=== PATIENT | male | born 1940 | race Caucasian/White ===

== ENCOUNTER → 2016-06-21 | Outpatient (CLI) | payer MEDICARE ==
[2016-06-21 09:44] LABS: Basophils % (A) 0 %; CH 35.2; CHCM 32.1; Eosinophils % (A) 1 %; HCT 40.2 % (39.0-53.0); HDW 2.48; HGB 12.9 gm/dL (13.0-17.5); Luc # (Auto) 0.13; Luc % (Auto) 4; Lymphocytes # (A) 0.5 k/uL (1.0-4.8); Lymphocytes % (A) 17 %; MCH 35.3 pg (25.0-35.0); MCV 110.2 fL (80.0-100.0); Macrocytosis Marked; Monocytes # (A) 0.2 k/uL (0-1.0); Monocytes % (A) 7 %; Neutrophils # (A) 2.2 k/uL (1.3-7.7); Neutrophils % (A) 71 %; RBC 3.65 m/uL (4.30-5.90); WBC 3.2 k/uL (3.8-10.6); WBC (Perox) 3.13
[2016-06-21 10:15] LABS: Manual Review Performed
[2016-06-21 10:33] LABS: Hemoglobin A1C 6.6 % (4.2-6.1)
[2016-06-21 10:50] LABS: ALT 277 U/L (21-72); AST 223 U/L (17-59); Alkaline Phosphatase 70 U/L (38-126); Anion Gap 9 mmol/L; Blood Urea Nitrogen 21 mg/dL (9-20); Calcium 9.2 mg/dL (8.4-10.2); Carbon Dioxide 25 mmol/L (22-30); Chloride 108 mmol/L (98-107); Cholesterol 146 mg/dL (<200); Glucose 149 mg/dL (74-99); HDL Cholesterol 36 mg/dL (40-60); Non-African American GFR(MDRD) >60 (>60 ml/min/1.73 sqM); Potassium 4.7 mmol/L (3.5-5.1); Sodium 142 mmol/L (137-145); Total Bilirubin 1.6 mg/dL (0.2-1.3); Total Protein 10.1 g/dL (6.3-8.2); Triglycerides 106 mg/dL (<150)
[2016-06-21 11:23] LABS: Prostate Specific Antigen 4.22 ng/mL (0.00-4.00)
== END | disposition home or self-care (01) ==
LOC: LABWHC1 08:36
PROVIDERS: ATTEND Internal Medicine Geriatric Medicine
DX: E78.00 Pure hypercholesterolemia, unspecified (principal); K21.9 Gastro-esophageal reflux disease without esophagitis; N40.0 Benign prostatic hyperplasia without lower urinary tract symptoms; D50.9 Iron deficiency anemia, unspecified
CPT/HCPCS: 36415; 80053; 80061; 83036; 84153; 84439; 84443; 85025

== ENCOUNTER → 2016-12-20 | Outpatient (CLI) | payer MEDICARE ==
[2016-12-20 08:03] LABS: Anisocytosis Slight; Basophils % (A) 0 %; CH 37.3; CHCM 34.5; Eosinophils # (A) 0.1 k/uL (0-0.7); Eosinophils % (A) 2 %; HCT 41.3 % (39.0-53.0); HDW 2.87; HGB 13.6 gm/dL (13.0-17.5); Luc # (Auto) 0.11; Luc % (Auto) 4; Lymphocytes # (A) 0.6 k/uL (1.0-4.8); Lymphocytes % (A) 20 %; MCV 108.9 fL (80.0-100.0); Macrocytosis Marked; Mean Platelet Volume 8.6; Monocytes # (A) 0.2 k/uL (0-1.0); Monocytes % (A) 8 %; Neutrophils # (A) 2.1 k/uL (1.3-7.7); Neutrophils % (A) 67 %; RBC 3.79 m/uL (4.30-5.90); RDW 16.2 % (11.5-15.5); WBC 3.1 k/uL (3.8-10.6)
[2016-12-20 08:44] LABS: Manual Review Performed
[2016-12-20 12:18] LABS: ALT 201 U/L (21-72); AST 161 U/L (17-59); Alkaline Phosphatase 74 U/L (38-126); Anion Gap 7 mmol/L; Blood Urea Nitrogen 19 mg/dL (9-20); Calcium 9.3 mg/dL (8.4-10.2); Carbon Dioxide 27 mmol/L (22-30); Chloride 106 mmol/L (98-107); Cholesterol 170 mg/dL (<200); Glucose 138 mg/dL (74-99); HDL Cholesterol 42 mg/dL (40-60); Iron 133 ug/dL (49-181); Non-African American GFR(MDRD) >60 (>60 ml/min/1.73 sqM); Potassium 4.8 mmol/L (3.5-5.1); Sodium 140 mmol/L (137-145); Total Bilirubin 1.3 mg/dL (0.2-1.3); Total Protein 9.2 g/dL (6.3-8.2)
[2016-12-20 12:33] LABS: % Iron Saturation 43.3 % (20-50); Total Iron Binding Capacity 307 ug/dL (261-462)
[2016-12-20 12:46] LABS: Prostate Specific Antigen 3.46 ng/mL (0.00-4.00)
[2016-12-20 14:23] LABS: Hemoglobin A1C 7.3 % (4.2-6.1)
== END | disposition home or self-care (01) ==
LOC: LABWHC1 07:40
PROVIDERS: ATTEND Internal Medicine Geriatric Medicine
DX: K75.4 Autoimmune hepatitis (principal); D50.9 Iron deficiency anemia, unspecified; E78.00 Pure hypercholesterolemia, unspecified; N40.0 Benign prostatic hyperplasia without lower urinary tract symptoms; R79.9 Abnormal finding of blood chemistry, unspecified
CPT/HCPCS: 36415; 80053; 80061; 83036; 83540; 83550; 84153; 85025

== ENCOUNTER → 2017-04-15 | Outpatient (CLI) | payer MEDICARE ==
--- NOTE | 2017-04-15 13:57 | CT ---
EXAMINATION TYPE: CT abdomen wo con DATE OF EXAM: 04/15/2017 COMPARISON: NONE INDICATION: Patient complains of right side abdominal pain about the level of the iliac crest. DLP: 518 mGycm, Automated exposure control for dose reduction was used. CONTRAST: No intravenous contrast Study performed with Oral Contrast TECHNIQUE: Axial images were obtained from above the diaphragm to the pubic rami in the axial plane a t 5 mm thick sections. Reconstructed images are reviewed on the computer in the coronal plane. FINDINGS: Limited CT sections are obtained the lung bases. The lung bases are clear. CT ABDOMEN: Liver: Normal Spleen: Appears enlarged and bulky although the craniocaudal dimension measures 11.0 cm which is with in normal limits. Pancreas: Atrophic Adrenal glands: The adrenal glands are normal. Gallbladder: Normal Kidneys: No masses are evident. No hydronephrosis is present. No cysts are present. There is a 0.9 cm calcification at the cortical medullary junction of the upper left kidney. Punctate 0.2 cm transv erse dimension calcification is in the inferior posterior right kidney Aorta: Vascular calcification is within the aorta. Inferior vena cava: Normal. Loops of bowel appear slightly prominent. Oral contrast extends to the distal loops of bowel. There is an anterior abdominal wall hernia in the anterior right lower quadrant. Additionally, an ost davina is at that site. IMPRESSIONS: 1. Mild diffuse prominence of the small bowel loops. Changes to suggest partial obstruction are not evident. Consider jejunitis. There is an ostomy in the right lower quadrant. Some anterior abdominal wall hernia containing small bowel loops as well as the right lower quadrant near the ostomy site. 2. Large left and small right renal stones without obstruction discussed above
== END | disposition home or self-care (01) ==
LOC: RADCTMAIN 11:50
PROVIDERS: ATTEND Internal Medicine Geriatric Medicine
DX: N20.0 Calculus of kidney (principal); K46.9 Unspecified abdominal hernia without obstruction or gangrene; Z98.890 Other specified postprocedural states
CPT/HCPCS: 74150

== ENCOUNTER → 2017-06-24 | Outpatient (CLI) | payer MEDICARE ==
--- NOTE | 2017-06-24 15:20 | US ---
EXAMINATION TYPE: US kidneys/renal and bladder DATE OF EXAM: 06/24/2017 COMPARISON: Correlation CT 04/15/2017 and 04/08/2013 CLINICAL HISTORY: 77-year-old male Calculus of Kidney N20.0. Hx of bilateral renal stones. Patient s tates having increase in urinary frequency at night. Technique: Multiple sonographic images of the kidneys and bladder are obtained. FINDINGS: Right Kidney: 12.0 x 4.6 x 4.8 cm without hydronephrosis. Left Kidney: 12.3 x 5.4 x 4.7 cm without hydronephrosis. There is a prominent column of Joe. Ther e is a hypoechoic structure at posterior through transmission laterally measuring 1.4 cm. Internal ec hoes could represent debris or could be artifactual. A medial echogenic focus with posterior shadowin g measures 8 mm. Underdistention of the bladder limits its evaluation. There is some echogenic material seen along the inferior margin of the bladder in the expected region of the prostate, probable prostatic calcificat ions. Only the right ureteral jet is seen during the course of the exam. Incidental finding--spleen at the upper limits of normal in size = 13.0 cm IMPRESSION: 1. Left-sided nephrolithiasis within 8 mm calculus. 2. No hydronephrosis seen. 3. A 1.4 cm cortical cyst on the left, stable from CT of 2012. 4. Some echogenic material along the inferior aspect of the bladder could represent prostatic calcifi cations or bladder calculi.
== END ==
LOC: RADUSWWP 13:32
PROVIDERS: ATTEND Internal Medicine Geriatric Medicine
DX: N20.0 Calculus of kidney (principal); N28.1 Cyst of kidney, acquired
CPT/HCPCS: 76770

== ENCOUNTER → 2017-10-28 | Outpatient (CLI) | payer MEDICARE ==
--- NOTE | 2017-10-29 11:25 | ECHOF ---
Referral Reason:R53.83 Fatigue MEASUREMENTS -------- HEIGHT: 175.3 cm WEIGHT: 78.5 kg BP: RVIDd: 3.4 cm (< 3.3) IVSd: 1.1 cm (0.6 - 1.1) LVIDd: 4.5 cm (3.9 - 5.3) LVPWd: 1.1 cm (0.6 - 1.1) IVSs: 1.3 cm LVIDs: 2.9 cm LVPWs: 1.4 cm LAESV Index (A-L): 37.28 ml/m Ao Diam: 3.4 cm (2.0 - 3.7) AV Cusp: 2.0 cm (1.5 - 2.6) LA Diam: 3.7 cm (2.7 - 3.8) EPSS: 0.7 cm MV E José Manuel: 0.65 m/s MV DecT: 376 ms MV A José Manuel: 0.60 m/s MV E/A Ratio: 1.09 RAP: 5.00 mmHg RVSP: 47.02 mmHg MV EF SLOPE: 41.54 mm/s (70 - 150) MV EXCURSION: 2.42 cm (> 18.000) FINDINGS -------- Sinus rhythm. This was a technically good study. The left ventricular size is normal. There is borderline concentric left ventricular hypertrophy. Overall left ventricular systolic function is normal with, an EF between 55 - 60 %. The right ventricle is mildly enlarged. LA is moderately dilated 34-39 ml/m2 RA appears enlarged. Aortic valve is trileaflet and is mildly thickened. Trace amount of aortic regurgitation. There is no evidence of aortic stenosis. The mitral valve leaflets are mildly thickened. There is trace to mild mitral regurgitation. [id number]-[id number] tricuspid regurgitation present. There is mild pulmonary hypertension. The right ventricular systolic pressure, as measured by Doppler, is 47.02mmHg. The pulmonic valve was not well visualized. The aortic root size is normal. IVC Not well visulized. There is no pericardial effusion. CONCLUSIONS -------- 1. Sinus rhythm. 2. This was a technically good study. 3. The left ventricular size is normal. 4. There is borderline concentric left ventricular hypertrophy. 5. Overall left ventricular systolic function is normal with, an EF between 55 - 60 %. 6. The right ventricle is mildly enlarged. 7. LA is moderately dilated 34-39 ml/m2 8. RA appears enlarged. 9. Aortic valve is trileaflet and is mildly thickened. 10. Trace amount of aortic regurgitation. 11. The mitral valve leaflets are mildly thickened. 12. There is trace to mild mitral regurgitation. 13. Xdzo-qf-vhtgakst tricuspid regurgitation present. 14. There is mild pulmonary hypertension. 15. The right ventricular systolic pressure, as measured by Doppler, is 47.02mmHg. 16. The pulmonic valve was not well visualized. 17. The aortic root size is normal. 18. IVC Not well visulized. 19. There is no pericardial effusion. HAND PASTER: Wes Amaro RDCS
== END | disposition home or self-care (01) ==
LOC: RADECHMAIN 16:18
PROVIDERS: ATTEND Internal Medicine
DX: I08.3 Combined rheumatic disorders of mitral, aortic and tricuspid valves (principal)
CPT/HCPCS: 93306

== ENCOUNTER → 2017-12-24 | Outpatient (CLI) | payer MEDICARE ==
[2017-12-24 08:31] LABS: Anisocytosis Moderate; HCT 30.5 % (39.0-53.0); HGB 9.7 gm/dL (13.0-17.5); Hypochromasia Slight; MCH 39.1 pg (25.0-35.0); MCHC 31.8 g/dL (31.0-37.0); Macrocytosis Marked; Mean Platelet Volume 8.3; RBC 2.48 m/uL (4.30-5.90); RDW 21.6 % (11.5-15.5); WBC 3.2 k/uL (3.8-10.6)
[2017-12-24 08:32] LABS: Platelet Count 81 k/uL (150-450)
[2017-12-24 08:59] LABS: Lymphocytes # (M) 0.61 k/uL (1.0-4.8); Monocytes # (M) 0.13 k/uL (0-1.0); Neutrophils # (M) 2.46 k/uL (1.3-7.7); Neutrophils % (M) 77 %; Nucleated Red Blood Cells 0 /100 WBC (0-0); Total Cells Counted 100
[2017-12-24 09:03] LABS: Albumin 2.6 g/dL (3.5-5.0); Calcium 8.2 mg/dL (8.4-10.2); Potassium 4.9 mmol/L (3.5-5.1); Total Bilirubin 2.8 mg/dL (0.2-1.3); Total Protein 9.1 g/dL (6.3-8.2)
== END | disposition home or self-care (01) ==
LOC: LABWHC1 07:27
DX: R74.8 Abnormal levels of other serum enzymes (principal)
CPT/HCPCS: 36415; 80053; 82105; 85025

== ENCOUNTER → 2018-01-15 | Outpatient (CLI) | payer MEDICARE ==
--- NOTE | 2018-01-15 13:42 | US ---
EXAMINATION TYPE: US portal vein DATE OF EXAM: 01/15/2018 COMPARISON: NONE CLINICAL HISTORY: 77-year-old male K74.60 Unspecified cirrhosis of the liver. Lack of energy, cholecy stectomy, cirrhosis TECHNIQUE: Multiple sonographic images of the right upper quadrant are obtained. FINDINGS: EXAM MEASUREMENTS: Liver Length: 12.9 cm Gallbladder: surgically absent CBD: 1.3cm Right Kidney: 11.5 x 5.1 x 4.6cm ANATOMY: Pancreas: tail obscured by overlying bowel content Liver: Nodular, cirrhotic contour. No focal lesion seen. Color flow patency within the portal vein: yes Portal Vein Flow: Hepatopetal Gallbladder: surgically absent Evidence for sonographic Castelan's sign: no CBD: dilated Right Kidney: no evidence of hydronephrosis IMPRESSION: 1. Bile duct dilated at 1.3 cm likely due to postcholecystectomy status. This can be correlated with alkaline phosphatase and bilirubin levels. 2. Cirrhosis. No sonographic evidence for hepatoma. 3. Patent portal vein with normal hepatopedal flow.
== END | disposition home or self-care (01) ==
LOC: RADUSWWP 07:32
DX: K74.60 Unspecified cirrhosis of liver (principal); K83.8 Other specified diseases of biliary tract
CPT/HCPCS: 93976

== ENCOUNTER → 2018-02-12 | Outpatient (CLI) | payer MEDICARE ==
--- NOTE | 2018-02-12 12:23 | XR ---
EXAMINATION TYPE: XR KUB DATE OF EXAM: 02/12/2018 11:58 AM CLINICAL HISTORY: History of ileostomy, colostomy, and left lower quadrant pain for 3 days. History also includes left-sided nephrolithiasis. TECHNIQUE: Single supine KUB image of the abdomen is obtained. COMPARISON: 06/10/2013. FINDINGS: Irregular multilobulated calcified density is seen within the pelvis that is not appreciate d on the prior exam of 06/10/2013. This measures up to 3.4 x 5.4 cm. Other similar-appearing phlebolit hs are noted within the pelvis. Surgical sutures are seen throughout the abdomen and within the pelvi s. Stable approximately 1.1 cm left renal calculus is seen. Lung bases are grossly unremarkable. Eval uation of pneumoperitoneum is limited on the supine view. Moderate to severe multilevel degenerative changes of the lumbosacral spine are seen. Moderate bilate ral femoral acetabular arthropathy and can deformities are also noted. No dilated large or small maribel l. IMPRESSION: 1. There is a new irregular radiopaque density within the pelvis that could be related to urinary mino dder calculi or soft tissue calcified mass. Further evaluation with CT pelvis is recommended. 2. Nonobstructive bowel gas pattern.
== END | disposition home or self-care (01) ==
LOC: RADXRMAIN 11:27
PROVIDERS: ATTEND Urology
DX: R93.422 Abnormal radiologic findings on diagnostic imaging of left kidney (principal)
CPT/HCPCS: 74018

== ENCOUNTER → 2018-02-26 | Outpatient (CLI) | payer MEDICARE ==
--- NOTE | 2018-02-27 08:53 | CT ---
EXAMINATION TYPE: CT abdomen pelvis wo con DATE OF EXAM: 02/26/2018 COMPARISON: 04/15/2017 INDICATION: Left lower quadrant abdominal pain. DLP: 466.1 mGycm, Automated exposure control for dose reduction was used. CONTRAST: 0 mL of Isovue 300. Study performed without Oral Contrast TECHNIQUE: Axial images were obtained from above the diaphragm to the pubic rami in the axial plane a t 5 mm thick sections. Reconstructed images are reviewed on the computer in the coronal plane. FINDINGS: Limited CT sections are obtained the lung bases. The lung bases are clear. CT ABDOMEN: There is mild diffuse ascites present adjacent to the liver spleen and within the mesente ry of the abdomen. Paracolic gutter fluid is evident bilaterally. Fluid extends into the pelvis. Liver: Normal Spleen: Spleen appears somewhat prominent and is borderline in size and 12.6 cm. Pancreas: Normal Adrenal glands: The adrenal glands are normal. Gallbladder: Normal Kidneys: No masses are evident. No hydronephrosis is present. No cysts are present. There is a lar ge 1.0 cm nonobstructing upper mid mid anterior left renal stone. Aorta: Vascular calcification is within the aorta. Inferior vena cava: Normal. CT PELVIS: Mild diffuse prominence of loops of bowel are present. Some wall thickening through the antrum the st omach may be present. Ostomy is in the left lower quadrant. Findings appear stable from comparison. S ome underlying ileitis is not excluded. Appendix: Not visualized Urinary bladder: Large number of dense coarse calcifications are in the right urinary bladder. Genitourinary structures: Prostate is prominent. This has some inferior impression on the urinary mino dder. There is a large dense calcification which appears to lie posterior to the urinary bladder is o f uncertain location. Osseous structures: No suspicious lytic or sclerotic lesions. Sacroiliac joint degenerative changes a re present. Facet hypertrophy and degenerative changes are throughout the lumbar spine. IMPRESSIONS: 1. Mild diffuse ascites. 2. Slight prominence of the jejunum and ileum. Correlate for jejuno- ileitis. 3. Mild prominence of the antrum the stomach wall. Antritis could be considered. 4. Nonobstructing left renal stone. 5. Dense coarse calcification right posterior lateral urinary bladder. An additional calcification wh ich appears to lie outside the posterior urinary bladder is present. 6. Enlarged prostate. 7. Splenomegaly
== END | disposition home or self-care (01) ==
LOC: RADCTMAIN 15:56
PROVIDERS: ATTEND Urology
DX: N20.0 Calculus of kidney (principal); N40.0 Benign prostatic hyperplasia without lower urinary tract symptoms; R16.1 Splenomegaly, not elsewhere classified; N32.89 Other specified disorders of bladder; Z91.013 Allergy to seafood; Z88.5 Allergy status to narcotic agent; Z91.048 Other nonmedicinal substance allergy status
CPT/HCPCS: 74176

== ENCOUNTER 2018-03-09 11:16 | Day surgery (SDC) | payer MEDICARE ==
[2018-03-04 11:01] VITALS: BMI 25.1
[~2018-03-09 11:16] MED LIST: DEXAMETHASONE SOD PHOSPHATE 10 MG/ML 1 ML VIAL IV ONE; LACTATED RINGERS 1,000 ML IV SCH; MIDAZOLAM 2 MG/2 ML VIAL IV PRN; ONDANSETRON 4 MG/2 ML VIAL IVP ONE; ceFAZolin IN SWFI 2 GM/20 ML SYRINGE IVP ONE; fentaNYL (PF) 50 MCG/ML 2 ML AMP IV PRN
[2018-03-09 11:49] LABS: Glucose,Whole Blood 141 mg/dL (75-99)
[2018-03-09 12:05] LABS: Anisocytosis Slight; HCT 34.2 % (39.0-53.0); HGB 11.3 gm/dL (13.0-17.5); Hypochromasia Slight; MCHC 33.1 g/dL (31.0-37.0); Macrocytosis Marked; Mean Platelet Volume 7.6; RBC 2.61 m/uL (4.30-5.90); RDW 18.7 % (11.5-15.5); WBC 4.8 k/uL (3.8-10.6)
[2018-03-09] MEDS ORDERED: fentaNYL (PF) 50 MCG/ML 2 ML AMP ONE (12:07)
[2018-03-09] MEDS ORDERED: ROCURONIUM BROMIDE 10 MG/ML 10 ML VIAL IV ONE (12:07)
[2018-03-09] MEDS ORDERED: PROPOFOL 10 MG/ML 20 ML VIAL IV ONE (12:07)
[2018-03-09] MEDS ORDERED: ePHEDrine SULFATE/0.9% NACL/PF 50 MG/5 ML SYRINGE IV ONE (12:07)
[2018-03-09] MEDS ORDERED: PHENYLEPHRINE-0.9% NACL SYG 1 MG/10 ML SYRINGE ONE (12:07)
[2018-03-09] MEDS ORDERED: LIDOCAINE 1% INJ 10MG/ML (20 ML MDV) ONE (12:07)
[2018-03-09 12:08] LABS: MCH 43.5 pg (25.0-35.0); MCV 131.2 fL (80.0-100.0)
[2018-03-09 12:40] LABS: Platelet Count 64 k/uL (150-450)
[2018-03-09] MEDS ORDERED: LACTATED RINGERS 1,000 ML IV ONE (13:03)
--- NOTE | 2018-03-09 14:19 | P.OP ---
Date of Procedure: 03/09/18 Preoperative Diagnosis: Bladder stone Postoperative Diagnosis: Bladder stones, large Procedure(s) Performed: Cystoscopy with cystolithotripsy, laser Anesthesia: GARRISON Surgeon: Spencer Lopez Pathology: other (Stone) Condition: stable Disposition: PACU Indications for Procedure: The patient is a 78. He was seen in the office with gross hematuria and abdominal pain. He is found to have a mariusz stone in the bladder may be some more stones. He comes for cystoscopy lithotripsy Description of Procedure: The patient was brought to the operating suite he is given a successful general endotracheal anesthesia. He's placed lithotomy position with a sterile prep and drape. With the 17-Ugandan sheath and Foroblique lens the urethra is normal. The prostate shows an obstructing bladder neck. There are 2 very large stones in the bladder each to this 2-1/2 cm in diameter. There is a large bladder diverticula with 3 large stones in it. There is another smaller stones. The total stone burden is over 5 cm. With the 550 laser probe and 25 W of energy I slowly over the next hour and a half break down all the stones in the smaller pieces. I evacuate the stone through a larger scope and an [employer] evacuator as well as grasping forceps. Then of the procedure there no remaining stones a. An 18-Ugandan Ayala catheters placed for urine drainage. The patient awake and returned recovery in good condition. He tolerated procedure well be discharged home upon recovery with an indwelling catheter until Friday which time it'll be removed. I'll see him in follow-up after that. Blood loss is less than 50 mL.
[2018-03-09 14:55] VITALS: TEMP 97
[2018-03-09 15:40] LABS: Glucose,Whole Blood 166 mg/dL (75-99)
[2018-03-09 15:56] VITALS: RESP 18
[2018-03-09 17:07] VITALS: BP 110/60; PULSE 66
== END 2018-03-09 17:10 | disposition home or self-care (01) ==
LOC: OR 11:16
PROVIDERS: ATTEND Urology
DX: N21.0 Calculus in bladder (principal); N32.3 Diverticulum of bladder; R31.0 Gross hematuria; E11.9 Type 2 diabetes mellitus without complications; K74.60 Unspecified cirrhosis of liver; Z93.2 Ileostomy status; K51.90 Ulcerative colitis, unspecified, without complications; Z79.84 Long term (current) use of oral hypoglycemic drugs; Z79.899 Other long term (current) drug therapy; Z79.891 Long term (current) use of opiate analgesic; Z79.52 Long term (current) use of systemic steroids; Z86.718 Personal history of other venous thrombosis and embolism
CPT/HCPCS: 52318; 85027; 82365; J1100; J2405; J2001; J3010; J2370; J2704

== ENCOUNTER 2018-03-16 06:53 | Day surgery (SDC) | payer MEDICARE ==
--- NOTE | 2018-03-08 19:21 | P.GSHP ---
History of Present Illness H&P Date: 03/08/18 78 yo male with a 3 cm bladder stone who comes for cystolithotripsy - Genitourinary (Male) Genitourinary: Reports as per HPI, Reports dysuria, Reports urinary frequency, Reports urinary hesitancy - Musculoskeletal Musculoskeletal: Reports low back pain Past Medical History Past Medical History: Diabetes Mellitus, Deep Vein Thrombosis (DVT), Liver Disease Additional Past Medical History / Comment(s): Ulcerative colitis, HEPATITIS, kidney stones, varicose veins, diabetes mellitus type 2 steroid induced History of Any Multi-Drug Resistant Organisms: None Reported Past Surgical History: Cholecystectomy, Orthopedic Surgery Additional Past Surgical History / Comment(s): rt elbow I and D, ileostomy initially and 1972 and suffered from perforated small bowel at that time requiring small bowel resection, revision of ileostomy in 1998, left total knee replacement in 2011 in [place] Past Anesthesia/Blood Transfusion Reactions: No Reported Reaction Smoking Status: Never smoker - Past Family History Daughter(s) Family Medical History: Osteoarthritis (OA) Additional Family Medical History / Comment(s): Patient has one daughter with Mnire's and osteoarthritis Father Additional Family Medical History / Comment(s): Dad in his 70s from a motor vehicle accident. Mother Additional Family Medical History / Comment(s): Mother in her 60s from "natural causes "and had varicose veins. Brother(s) Additional Family Medical History / Comment(s): Patient has 2 brothers that have passed from "natural causes " Sister(s) Additional Family Medical History / Comment(s): Patient has one sister that is alive with dementia. Son(s) Family Medical History: Hyperlipidemia Additional Family Medical History / Comment(s): Patient has one son with high cholesterol. Medications and Allergies Home Medications Medication Instructions Recorded Confirmed Type Baclofen 5 mg PO BID 08/22/15 03/04/18 History Loratadine [Claritin] 10 mg PO DAILY 08/22/15 03/04/18 History Magnesium 250mg Tab 250 mg PO HS 08/22/15 03/04/18 History Tamsulosin HCl [Flomax] 0.2 mg PO BID 08/22/15 03/04/18 History azaTHIOprine [Azathioprine] 50 mg PO BID 08/22/15 03/04/18 History metFORMIN HCL 500 mg PO BID 08/22/15 03/04/18 History Ferrous Sulfate [Feosol] 325 mg PO DAILY #30 tab 09/19/15 03/04/18 Rx HYDROcodone/APAP 5-325MG [[place] 1 tab PO Q6HR PRN #30 tab 09/19/15 03/04/18 Rx 5-325] Ergocalciferol [Vitamin D2] 50,000 unit PO MO 03/04/18 03/04/18 History Furosemide [Lasix] 20 mg PO DAILY 03/04/18 03/04/18 History Melatonin 10 mg PO HS 03/04/18 03/04/18 History Multivitamins, Thera [Multivitamin 2 tab PO DAILY 03/04/18 03/04/18 History (formulary)] predniSONE 20 mg PO DAILY 03/04/18 03/04/18 History Procrit (Unknown Dose) 1 injection INJ WE 03/05/18 History Allergies Allergy/AdvReac Type Severity Reaction Status Date / Time Iodinated Contrast- Oral and Allergy Anaphylaxis Verified 03/04/18 10:22 IV Dye [Iodinated Contrast Media - IV Dye] meperidine HCl [From Demerol] Allergy Hallucinati Verified 03/04/18 10:22 ons morphine Allergy Hallucinati Verified 03/04/18 10:22 ons shellfish derived [Shellfish] Allergy Anaphylaxis Verified 03/04/18 10:22 Surgical - Exam - General well developed, well nourished, no distress - Eyes PERRL - ENT no hearing loss - Neck trachea midline - Respiratory normal expansion, normal respiratory effort - Cardiovascular Rhythm: regular - Abdomen Abdomen: soft, non tender - Genitourinary normal penis with no external lesions, testicles present - Integumentary no rash, no growths - Neurologic normal coordination, normal sensation - Musculoskeletal normal gait, normal posture - Psychiatric oriented to time, oriented to person, oriented to place, speech is normal Assessment and Plan Assessment: Impression: bladder stone large[3cm] Plan: cystolithotripsy
[2018-03-10 13:35] VITALS: BMI 24.3
[~2018-03-16 06:53] MED LIST changes: +HYDROmorphone 0.5 MG/0.5 ML SYRINGE IVP PRN; +LIDOCAINE 1% 20 ML VIAL (10MG/ML) FOR IV START INTRADERMA PRN; -MIDAZOLAM 2 MG/2 ML VIAL IV PRN; +SCOPOLAMINE 1.5MG/72HR PATCH TRANSDERM ONE; -ceFAZolin IN SWFI 2 GM/20 ML SYRINGE IVP ONE; -fentaNYL (PF) 50 MCG/ML 2 ML AMP IV PRN
[2018-03-16 07:20] VITALS: TEMP 98
[2018-03-16 07:22] LABS: Glucose,Whole Blood 153 mg/dL (75-99)
[2018-03-16] MEDS ORDERED: LIDOCAINE 1% INJ 10MG/ML (20 ML MDV) ONE (08:07)
[2018-03-16] MEDS ORDERED: PROPOFOL 10 MG/ML 20 ML VIAL IV ONE (08:07)
[2018-03-16 08:49] VITALS: RESP 18
[2018-03-16 08:57] VITALS: BP 101/60; PULSE 73
--- NOTE | 2018-03-16 10:38 | P.PCN ---
Date of Procedure: 03/16/18 Procedure(s) Performed: Procedure: Esophagogastroduodenoscopy Preoperative diagnosis: History of liver cirrhosis and portal hypertension to assess for esophageal or gastric varices. Postoperative diagnosis: 1. Sliding hiatal hernia with no obvious esophagitis or complicated reflux disease. 2. No esophageal or gastric varices. 3. Portal gastropathy with no spontaneous bleeding. 4. No ulcers or other pathology. Preparation and sedation: Was provided by anesthesia. Brief clinical history: The patient is an 78-year-old male with history of ulcerative colitis and autoimmune hepatitis. He had proctocolectomy/ileostomy 1972 and was treated with Imuran for close to 20 years for his autoimmune hepatitis. The patient was noted to have symptomatic anemia and pancytopenia in September of this year and lost 20 pounds. Liver enzymes were also increased and an ultrasound performed in October suggested cirrhosis. He had CT of the abdomen in March 2017 that showed splenomegaly and kidney stones. The patient is being followed for compensated cirrhosis of the liver and was also evaluated at [facility] transplant unit for co-management. He was recommended an upper endoscopy to rule out esophageal varices. Procedure: With the patient on his left lateral decubitus position and after informed consent and adequate sedation, I passed the Olympus-GIF 160 video upper endoscope through the cricopharyngeus down the esophagus. GE junction was around 39 cm from the incisors and there was a 1-2 cm sliding hiatal hernia but no obvious esophagitis or complicated reflux disease. There were no esophageal varices noted. The endoscope was then passed into the stomach which was insufflated with air and inspected in detail including the retroflex view in the cardia. There was diffuse mottling and erythema and other features suggestive of portal gastropathy but there were no ulcers, erosions or bleeding. No gastric varices. Pyloric channel did not show any ulcers. Duodenal bulb, post bulbar area and descending duodenum appeared within normal limits. No biopsies were indicated then the endoscope was withdrawn. The patient tolerated the procedure well. Plan: The patient was reassured. Further workup planned include MRI of the liver next month. He will continue to follow up with you and I will keep you updated on his progress.
== END 2018-03-16 09:16 | disposition home or self-care (01) ==
LOC: ORWHC2ENDO 06:53
DX: K44.9 Diaphragmatic hernia without obstruction or gangrene (principal); K74.60 Unspecified cirrhosis of liver; K75.4 Autoimmune hepatitis; K76.6 Portal hypertension; K31.89 Other diseases of stomach and duodenum; N40.0 Benign prostatic hyperplasia without lower urinary tract symptoms; D61.818 Other pancytopenia; D64.9 Anemia, unspecified; E11.9 Type 2 diabetes mellitus without complications; Z79.52 Long term (current) use of systemic steroids; Z79.899 Other long term (current) drug therapy; Z88.5 Allergy status to narcotic agent; Z91.041 Radiographic dye allergy status; Z91.013 Allergy to seafood; Z87.442 Personal history of urinary calculi; Z79.891 Long term (current) use of opiate analgesic; Z79.84 Long term (current) use of oral hypoglycemic drugs
CPT/HCPCS: 43235; J2001; J2704

== ENCOUNTER 2018-03-21 11:51 | Inpatient (IN) | payer MEDICARE ==
[2018-03-21] MEDS ORDERED: SODIUM CHLORIDE 0.9% 1,000 ML IV STA ×2 (12:09→15:21)
--- NOTE | 2018-03-21 12:15 | ED ---
General Adult HPI - General Chief complaint: Extremity Injury, Lower Stated complaint: LEFT KNEE PAIN Source: EMS Mode of arrival: EMS Limitations: physical limitation - History of Present Illness Initial comments: Dictation was produced using [employer] dictation software. please excuse any grammatical, word or spelling errors. Chief Complaint: 78-year-old male with past medical history of autoimmune hepatitis, DVT, diabetes, liver disease presents with left-sided knee pain and worsening fluid retention in the bilateral lower extremities. History of Present Illness: Patient is a 78-year-old male with multiple comorbidities presents with chief complaint of left knee pain and bilateral lower extremity edema. Patient states that edema have been present since Thanksgiving time. States that today however it's much worse. Today patient presents with main complaint of left knee pain. His left knee pain since yesterday. Patient is unable to walk secondary to pain. He is accompanied by family. EMS was called because patient had extreme difficulty ambulating. EMS reports that patient had stable vital signs on arrival. He was given 100 mg of fentanyl for the pain. In 2011 patient a total knee replacement of the left knee. Denies any constitutional symptoms. One week ago patient had a endoscopy performed by acquisitions editor. Patient also had urinary catheter removed recently. The ROS documented in this emergency department record has been reviewed and confirmed by me. Those systems with pertinent positive or negative responses have been documented in the HPI. All other systems are other negative and/or noncontributory. - Related Data Home Medications Medication Instructions Recorded Confirmed Baclofen 5 mg PO BID 08/22/15 03/16/18 Loratadine [Claritin] 10 mg PO DAILY 08/22/15 03/16/18 Magnesium 250mg Tab 250 mg PO HS 08/22/15 03/16/18 Tamsulosin HCl [Flomax] 0.2 mg PO BID 08/22/15 03/16/18 azaTHIOprine [Azathioprine] 50 mg PO BID 08/22/15 03/16/18 metFORMIN HCL 500 mg PO BID 08/22/15 03/16/18 Ergocalciferol [Vitamin D2] 50,000 unit PO MO 03/04/18 03/16/18 Furosemide [Lasix] 20 mg PO DAILY 03/04/18 03/16/18 Melatonin 10 mg PO HS 03/04/18 03/16/18 Multivitamins, Thera [Multivitamin 2 tab PO DAILY 03/04/18 03/16/18 (formulary)] predniSONE 20 mg PO DAILY 03/04/18 03/16/18 Procrit (Unknown Dose) 1 injection INJ WE 03/05/18 03/16/18 Previous Rx's Medication Instructions Recorded Ferrous Sulfate [Feosol] 325 mg PO DAILY #30 tab 09/19/15 HYDROcodone/APAP 5-325MG [[place] 1 tab PO Q6HR PRN #30 tab 09/19/15 5-325] Allergies Allergy/AdvReac Type Severity Reaction Status Date / Time Iodinated Contrast- Oral and Allergy Anaphylaxis Verified 03/10/18 13:24 IV Dye [Iodinated Contrast Media - IV Dye] meperidine HCl [From Demerol] Allergy Hallucinati Verified 03/10/18 13:24 ons morphine Allergy Hallucinati Verified 03/10/18 13:24 ons shellfish derived [Shellfish] Allergy Anaphylaxis Verified 03/10/18 13:24 Review of Systems ROS Statement: Those systems with pertinent positive or pertinent negative responses have been documented in the HPI. ROS Other: All systems not noted in ROS Statement are negative. Past Medical History Past Medical History: Diabetes Mellitus, Deep Vein Thrombosis (DVT), Liver Disease Additional Past Medical History / Comment(s): Ulcerative colitis, HEPATITIS, kidney stones, varicose veins, diabetes mellitus type 2 steroid induced History of Any Multi-Drug Resistant Organisms: None Reported Past Surgical History: Cholecystectomy, Orthopedic Surgery Additional Past Surgical History / Comment(s): rt elbow I and D, ileostomy initially and 1972 and suffered from perforated small bowel at that time requiring small bowel resection, revision of ileostomy in 1998, left total knee replacement in 2011 in [place] 03/16/28 endoscopy. removal of kidney stones Past Anesthesia/Blood Transfusion Reactions: No Reported Reaction Past Psychological History: No Psychological Hx Reported Smoking Status: Never smoker Past Alcohol Use History: None Reported Past Drug Use History: None Reported - Past Family History Daughter(s) Family Medical History: Osteoarthritis (OA) Additional Family Medical History / Comment(s): Patient has one daughter with Mnire's and osteoarthritis Father Additional Family Medical History / Comment(s): Dad in his 70s from a motor vehicle accident. Mother Additional Family Medical History / Comment(s): Mother in her 60s from "natural causes "and had varicose veins. Brother(s) Additional Family Medical History / Comment(s): Patient has 2 brothers that have passed from "natural causes " Sister(s) Additional Family Medical History / Comment(s): Patient has one sister that is alive with dementia. Son(s) Family Medical History: Hyperlipidemia Additional Family Medical History / Comment(s): Patient has one son with high cholesterol. General Exam - General Exam Comments Initial Comments: PHYSICAL EXAM: General Impression: Alert and oriented x3, acute distress secondary to pain HEENT: Normocephalic atraumatic, extra-ocular movements intact, pupils equal and reactive to light bilaterally, mucous membranes moist. Cardiovascular: Heart regular rate and rhythm, S1&S2 audible, no murmurs, rubs or gallops Chest: Lungs clear to auscultation bilaterally, no rhonchi, no wheeze, no rales Abdomen: Bowel sounds present, abdomen soft, non-tender, non-distended, no organomegaly, colostomy bag present Musculoskeletal: Pulses present and equal in all extremities, 4+ pitting edema to the bilateral lower extremities. Swelling is symmetrical to her bilateral lower extremities. Motor: Power 5/5 bilaterally, no focal deficits noted Neurological: CN II-XII grossly intact, no focal motor or sensory deficits noted Skin: Intact with no visualized rashes Psych: Normal affect and mood Limitations: physical limitation Course Vital Signs 03/21/18 03/21/18 03/21/18 11:53 12:00 13:00 Temperature 99.1 F Pulse Rate 95 Respiratory 20 Rate Blood Pressure 123/62 123/62 109/59 O2 Sat by Pulse 99 100 95 Oximetry 03/21/18 03/21/18 03/21/18 13:30 14:00 14:30 Temperature Pulse Rate 82 85 84 Respiratory 12 13 15 Rate Blood Pressure 93/50 91/51 91/49 O2 Sat by Pulse 100 100 100 Oximetry 03/21/18 03/21/18 15:10 16:03 Temperature 97.9 F Pulse Rate Respiratory 20 Rate Blood Pressure O2 Sat by Pulse Oximetry Medical Decision Making - Medical Decision Making ED course: 78-year-old male presents chief complaint of left knee pain and worsening lower extremity edema. She does have history of deep venous thrombosis. Pitting edema is bilateral and symmetrical. This point the venous thrombosis is low on the differential. Vital signs upon arrival are within acceptable limits. Patient appears in acute distress. Patient presents with left knee pain. There is slight warmth to the knee. However no saline changes to the knee. Patient denies any constitutional symptoms. He is afebrile. Patient does have a history of lithotripsy recently performed last month. He recently had urinary catheter removed. Return evaluation obtained. Patient's CBC is at baseline. However there is significant abnormalities with elevated MCV. Platelet count 61. Coag panel shows INR of 2.0. Laboratory evaluation obtained. Sodium 128, potassium 5.5 with, of slight hemolysis. Patient does have mild non-gap acidosis. Be a creatinine slightly elevated. Glucose 213, magnesium 1.4, total bilirubin of 4.3. Chest x-ray shows no acute processes. The x-ray shows no acute processes. There is concern of septic arthritis given that patient had exquisite knee pain and constitutional symptoms. Discussed patient case with Dr. Castelan who does not believe that patient's symptoms are secondary to septic arthritis given that he does not have a febrile temperature or elevated white count. Discussed patient case with patient's primary care doctor Dr. Donaldson was also incidentally lithography contact worker for the group. He requests consultation to orthopedic surgery, gastroenterology and infectious disease. EKG interpretation: Ventricular rate 85, normal sinus rhythm,. Interval 156, QRS 76, QTC 4:30. No MO prolongation, no QTC prolongation, no ST or T-wave changes noted. Overall, this EKG is unremarkable - Lab Data Result diagrams: 03/21/18 12:40 03/21/18 12:40 Lab Results 03/21/18 03/21/18 03/21/18 Range/Units 12:40 12:40 12:40 WBC 5.9 (3.8-10.6) k/uL RBC 2.61 L (4.30-5.90) m/uL Hgb 11.1 L (13.0-17.5) gm/dL Hct 33.3 L (39.0-53.0) % MCV 127.3 H D (80.0-100.0) fL MCH 42.5 H (25.0-35.0) pg MCHC 33.4 (31.0-37.0) g/dL RDW 19.3 H (11.5-15.5) % Plt Count 61 L (150-450) k/uL Neutrophils % 93 % Lymphocytes % 3 % Monocytes % 3 % Eosinophils % 0 % Basophils % 0 % Neutrophils # 5.4 (1.3-7.7) k/uL Lymphocytes # 0.2 L (1.0-4.8) k/uL Monocytes # 0.2 (0-1.0) k/uL Eosinophils # 0.0 (0-0.7) k/uL Basophils # 0.0 (0-0.2) k/uL Polychromasia Present Poikilocytosis (manual Present Anisocytosis Slight Macrocytosis Marked PT (9.0-12.0) sec INR (<1.2) APTT (22.0-30.0) sec Sodium 128 L (137-145) mmol/L Potassium 5.5 H (3.5-5.1) mmol/L Chloride 104 (98-107) mmol/L Carbon Dioxide 19 L (22-30) mmol/L Anion Gap 5 mmol/L BUN 60 H (9-20) mg/dL Creatinine 1.53 H (0.66-1.25) mg/dL Est GFR (CKD-EPI)AfAm 49 (>60 ml/min/1.73 sqM) Est GFR (CKD-EPI)NonAf 42 (>60 ml/min/1.73 sqM) Glucose 213 H (74-99) mg/dL Calcium 8.7 (8.4-10.2) mg/dL Magnesium 1.4 L (1.6-2.3) mg/dL Total Bilirubin 4.3 H (0.2-1.3) mg/dL AST 69 H (17-59) U/L ALT 76 H (21-72) U/L Alkaline Phosphatase 121 (38-126) U/L Total Creatine Kinase 52 L (55-170) U/L CK-MB (CK-2) 2.7 H (0.0-2.4) ng/mL CK-MB (CK-2) Rel Index 5.2 Troponin I <0.012 (0.000-0.034) ng/mL NT-Pro-B Natriuret Pep pg/mL Total Protein 7.4 (6.3-8.2) g/dL Albumin 2.3 L (3.5-5.0) g/dL 03/21/18 03/21/18 Range/Units 12:40 12:40 WBC (3.8-10.6) k/uL RBC (4.30-5.90) m/uL Hgb (13.0-17.5) gm/dL Hct (39.0-53.0) % MCV (80.0-100.0) fL MCH (25.0-35.0) pg MCHC (31.0-37.0) g/dL RDW (11.5-15.5) % Plt Count (150-450) k/uL Neutrophils % % Lymphocytes % % Monocytes % % Eosinophils % % Basophils % % Neutrophils # (1.3-7.7) k/uL Lymphocytes # (1.0-4.8) k/uL Monocytes # (0-1.0) k/uL Eosinophils # (0-0.7) k/uL Basophils # (0-0.2) k/uL Polychromasia Poikilocytosis (manual Anisocytosis Macrocytosis PT 17.9 H (9.0-12.0) sec INR 2.0 H (<1.2) APTT 29.3 (22.0-30.0) sec Sodium (137-145) mmol/L Potassium (3.5-5.1) mmol/L Chloride (98-107) mmol/L Carbon Dioxide (22-30) mmol/L Anion Gap mmol/L BUN (9-20) mg/dL Creatinine (0.66-1.25) mg/dL Est GFR (CKD-EPI)AfAm (>60 ml/min/1.73 sqM) Est GFR (CKD-EPI)NonAf (>60 ml/min/1.73 sqM) Glucose (74-99) mg/dL Calcium (8.4-10.2) mg/dL Magnesium (1.6-2.3) mg/dL Total Bilirubin (0.2-1.3) mg/dL AST (17-59) U/L ALT (21-72) U/L Alkaline Phosphatase (38-126) U/L Total Creatine Kinase (55-170) U/L CK-MB (CK-2) (0.0-2.4) ng/mL CK-MB (CK-2) Rel Index Troponin I (0.000-0.034) ng/mL NT-Pro-B Natriuret Pep 1630 pg/mL Total Protein (6.3-8.2) g/dL Albumin (3.5-5.0) g/dL Disposition Clinical Impression: Knee pain, Hyponatremia Disposition: ADMITTED IP TO THIS HOSP Condition: Fair Referrals: Sixto Donaldson MD [Primary Care Provider] - 1-2 days Decision Time: 16:54
[2018-03-21] MEDS ORDERED: fentaNYL (PF) 50 MCG/ML 2 ML AMP IVP STA (12:47)
[2018-03-21] MEDS ORDERED: HYDROcodone/APAP 5-325MG 1 EACH TAB PO STA (12:48)
--- NOTE | 2018-03-21 12:50 | XR ---
EXAMINATION TYPE: XR chest 1V portable DATE OF EXAM: 03/21/2018 COMPARISON: 09/16/2015 HISTORY: Shortness of breath TECHNIQUE: Single frontal view of the chest is obtained. FINDINGS: There is chronic left hemidiaphragm elevation that is mild. Skin folds overlie the right l brigida. No focal consolidation, pleural effusion or pneumothorax. Cardia mediastinal silhouette is mildl y enlarged. Mild degenerative changes of the acromio clavicular joints and spine are seen. IMPRESSION: No acute process.
[2018-03-21 13:16] LABS: Albumin 2.3 g/dL (3.5-5.0); Calcium 8.7 mg/dL (8.4-10.2); Total Bilirubin 4.3 mg/dL (0.2-1.3); Total Protein 7.4 g/dL (6.3-8.2)
--- NOTE | 2018-03-21 13:17 | XR ---
EXAMINATION TYPE: XR knee complete LT DATE OF EXAM: 03/21/2018 CLINICAL HISTORY: Left knee pain TECHNIQUE: Three views of the left knee are obtained. COMPARISON: None. FINDINGS: There is no acute fracture/dislocation evident in left knee arthroplasty or sioux bone no periprosthetic lucency is seen. Diffuse subcutaneous soft tissue swelling is noted as well as small vessel atherosclerosis. IMPRESSION: Diffuse subcutaneous soft tissue swelling with no acute fracture or dislocation in the le ft knee arthroplasty or sioux bone.
[2018-03-21 13:18] LABS: Magnesium 1.4 mg/dL (1.6-2.3); Potassium 5.5 mmol/L (3.5-5.1)
[2018-03-21 13:19] LABS: Creatine Kinase 52 U/L (55-170)
[2018-03-21 13:22] LABS: Partial Thromboplastin Time 29.3 sec (22.0-30.0); Prothrombin Time 17.9 sec (9.0-12.0)
[2018-03-21 13:26] LABS: Anisocytosis Slight; Basophils % (A) 0 %; Eosinophils % (A) 0 %; HCT 33.3 % (39.0-53.0); HGB 11.1 gm/dL (13.0-17.5); Lymphocytes # (A) 0.2 k/uL (1.0-4.8); Lymphocytes % (A) 3 %; MCHC 33.4 g/dL (31.0-37.0); Macrocytosis Marked; Mean Platelet Volume 8.8; Monocytes # (A) 0.2 k/uL (0-1.0); Monocytes % (A) 3 %; Neutrophils # (A) 5.4 k/uL (1.3-7.7); Neutrophils % (A) 93 %; RBC 2.61 m/uL (4.30-5.90); RDW 19.3 % (11.5-15.5); WBC 5.9 k/uL (3.8-10.6)
[2018-03-21 13:27] LABS: MCH 42.5 pg (25.0-35.0); MCV 127.3 fL (80.0-100.0)
[2018-03-21 13:28] LABS: Platelet Count 61 k/uL (150-450)
[2018-03-21 13:32] LABS: Creatine Kinase MB 2.7 ng/mL (0.0-2.4); Troponin I <0.012 ng/mL (0.000-0.034)
[2018-03-21 13:56] LABS: Poikilocytosis (M) Present; Polychromasia Present
[2018-03-21] MEDS ORDERED: VANCOMYCIN 1,000 MG in SODIUM CHLORIDE 0.9% 250 ML IVPB STA (15:21)
[2018-03-21] MEDS ORDERED: NALOXONE 0.4 MG/ML 1 ML VIAL IV STA (15:22)
[2018-03-21] MEDS ORDERED: VANCOMYCIN IV PER PHARMACY 1 EACH MISC MISCELLANE PRN (15:32)
[2018-03-21] MEDS ORDERED: VANCOMYCIN 1,750 MG in SODIUM CHLORIDE 0.9% 500 ML 500 ML IVPB ONE (15:45)
[2018-03-21] MEDS ORDERED: NALOXONE 0.4 MG/ML 1 ML VIAL IV PRN (16:51)
[2018-03-21 17:53] LABS: Amorphous Sediment,Urine Rare /hpf; Appearance,Urine Clear (Clear); Bilirubin,Urine Negative (Negative); Blood,Urine Moderate (Negative); Color,Urine Yellow; Glucose,Urine (UA) Negative (Negative); Hyaline Casts,Urine 24 /lpf (0-2); Ketones,Urine Negative (Negative); Leukocyte Esterase,Urine Small (Negative); Mucus,Urine Rare /hpf; Nitrite,Urine Negative (Negative); PH, Urine 5.5 (5.0-8.0); Protein,Urine Trace (Negative); RBC,Urine 30 /hpf (0-5); Specific Gravity,Urine 1.014 (1.001-1.035); Urobilinogen,Urine <2.0 mg/dL (<2.0); WBC,Urine 19 /hpf (0-5)
[2018-03-21] MEDS: HYDROcodone/APAP 5-325MG 1 EACH TAB PO PRN (18:20)
[2018-03-21 19:47] LABS: Glucose,Whole Blood 231 mg/dL (75-99)
[2018-03-21 21:07] VITALS: BMI 26.6
[2018-03-22] MEDS: BACLOFEN 10 MG TAB PO SCH ×3 (00:13→21:42)
[2018-03-22] MEDS: MAGNESIUM OXIDE 400 MG TAB PO SCH ×2 (00:13→21:42)
[2018-03-22] MEDS: FAMOTIDINE 20 MG TAB PO SCH ×3 (00:14→21:42)
[2018-03-22] MEDS: azaTHIOprine 50 MG TAB PO SCH ×3 (00:14→21:42)
[2018-03-22] MEDS: TAMSULOSIN 0.4 MG CAP.ER.24H PO SCH ×3 (00:14→21:42)
[2018-03-22] MEDS: INSULIN ASPART 100 UNIT/ML 1 ML 10 ML VIAL SQ SCH ×6 (00:15→21:42)
[2018-03-22] MEDS: FUROSEMIDE 40 MG TAB PO SCH ×2 (00:18→10:30)
[2018-03-22 00:47] LABS: Glucose,Whole Blood 200 mg/dL (75-99)
[2018-03-22] MEDS: HYDROcodone/APAP 5-325MG 1 EACH TAB PO PRN ×3 (03:09→12:47)
[2018-03-22 08:33] LABS: Glucose,Whole Blood 315 mg/dL (75-99)
[2018-03-22] MEDS: LORATADINE 10 MG TAB PO SCH (08:54)
[2018-03-22] MEDS: FERROUS SULFATE 325 MG TAB PO SCH (08:54)
[2018-03-22] MEDS ORDERED: SPIRONOLACTONE 25 MG TAB PO SCH (09:00)
[2018-03-22] MEDS: predniSONE 20 MG TAB PO SCH (09:01)
[2018-03-22] MEDS: VANCOMYCIN 1,500 MG in SODIUM CHLORIDE 0.9% 250 ML IVPB SCH (09:12)
[2018-03-22] MEDS ORDERED: GLIPIZIDE PO SCH (09:15)
[2018-03-22] MEDS ORDERED: METFORMIN HCL PO SCH (09:15)
[2018-03-22] MEDS: SPIRONOLACTONE 25 MG TAB PO SCH (09:26)
[2018-03-22] MEDS: FUROSEMIDE 20 MG TAB PO SCH ×2 (09:26→15:28)
[2018-03-22] MEDS: INSULIN DETEMIR 100 UNIT/ML 10 ML VIAL SQ SCH (10:06)
--- NOTE | 2018-03-22 10:56 | P.HPIM ---
History of Present Illness H&P Date: 03/22/18 This is a 78-year-old male patient of Dr. Donaldson with past medical history for diabetes mellitus type 2 steroid induced, DVT many years ago on 2 episodes, autoimmune hepatitis on Imuran, ulcerative colitis status post ileostomy originally in 1972 and revision in 1998 currently on azathioprine, kidney stones, varicose veins. Patient recently seen by Dr. Lopez for over a kidney stone and due to edema was sent into the office and has been seen several times by MINA Adams, with medication changes made by increasing Lasix and adding Zaroxolyn and Aldactone. He has ongoing problems with left- sided knee pain and fluid retention. He states he was unable to move his left knee and hip and that was recently came in to the hospital for evaluation. He denies having any fever, no nausea or vomiting. He has had decreased appetite. He has an ileostomy that has liquid output which is normal for him. He denies having any falls. Patient came into [facility] emergency center for evaluation. Chest x-ray showed no acute process. Knee x- ray showed diffuse subcutaneous soft tissue swelling with no acute fracture dislocation left knee arthroplasty or [place] bone. His white count was normal at 5.9, hemoglobin 11.1, platelet count 61, INR 2.0. Sodium 128, potassium 5.5 , CO2 19, BUN 16 creatinine 1.53 blood sugars have been elevated at 200s to 315. Magnesium was 1.4, total bilirubin 4.3, AST 69, ALT 76, alkaline phosphatase 121. Troponin was negative. C-reactive protein 47.3. Albumin 2.3 , proBNP 1630. Urinalysis was clear with moderate blood, small leukoesterase. There was concern for septic arthroplasty left knee and electrolyte abnormalities and acute kidney injury and patient was admitted to the [facility] floor consults were requested with Dr. Pierce and Dr. Castelan. Subsequently, patient is been seen by Dr. Castelan and aspiration was done with concern for infection and plan is for I&D tomorrow in the OR. Consult with GI for autoimmune hepatitis. Review of Systems All systems: negative Constitutional: Reports fatigue, Reports poor appetite, Reports weakness, Denies chills, Denies fever Eyes: denies blurred vision, denies pain Ears, nose, mouth and throat: Denies dysphagia, Denies headache, Denies sore throat, Denies vertigo Cardiovascular: Reports leg edema, Denies chest pain, Denies shortness of breath , Denies syncope Respiratory: Denies cough, Denies cough with sputum, Denies excessive sputum, Denies hemoptysis, Denies wheezing Gastrointestinal: Reports loss of appetite, Denies abdominal pain, Denies diarrhea, Denies melena, Denies nausea, Denies vomiting Genitourinary: Denies dysuria Musculoskeletal: Reports gait dysfunction, Denies myalgias Musculoskeletal: left: knee pain, knee swelling Integumentary: Reports wounds, Denies pruritus, Denies rash Neurological: Denies change in mentation, Denies confusion, Denies numbness, Denies weakness Psychiatric: Denies anxiety, Denies depression Endocrine: Denies fatigue, Denies weight change Past Medical History Past Medical History: Diabetes Mellitus, Deep Vein Thrombosis (DVT), Liver Disease Additional Past Medical History / Comment(s): Ulcerative colitis, autoimmune hepatitis, kidney stones, varicose veins, diabetes mellitus type 2 steroid induced History of Any Multi-Drug Resistant Organisms: None Reported Past Surgical History: Cholecystectomy, Orthopedic Surgery Additional Past Surgical History / Comment(s): rt elbow I and D, ileostomy initially and 1972 and suffered from perforated small bowel at that time requiring small bowel resection, revision of ileostomy in 1998, left total knee replacement in 2011 in [place] 03/16/28 endoscopy. removal of kidney stones Past Anesthesia/Blood Transfusion Reactions: No Reported Reaction Past Psychological History: No Psychological Hx Reported Smoking Status: Never smoker Past Alcohol Use History: None Reported Additional Past Alcohol Use History / Comment(s): Patient is a lifelong nonsmoker. He denies any medical marijuana, marijuana, street drug use. He is very active the home with no assisted devices. He golfs daily Friday through Friday Past Drug Use History: None Reported - Past Family History Daughter(s) Family Medical History: Osteoarthritis (OA) Additional Family Medical History / Comment(s): Patient has one daughter with Mnire's and osteoarthritis Father Additional Family Medical History / Comment(s): Dad in his 70s from a motor vehicle accident. Mother Additional Family Medical History / Comment(s): Mother in her 60s from "natural causes "and had varicose veins. Brother(s) Additional Family Medical History / Comment(s): Patient has 2 brothers that have passed from "natural causes " Sister(s) Additional Family Medical History / Comment(s): Patient has one sister that is alive with dementia. Son(s) Family Medical History: Hyperlipidemia Additional Family Medical History / Comment(s): Patient has one son with high cholesterol. Medications and Allergies Home Medications Medication Instructions Recorded Confirmed Type Baclofen 5 mg PO BID 08/22/15 03/21/18 History Loratadine [Claritin] 10 mg PO DAILY 08/22/15 03/21/18 History Magnesium 250mg Tab 250 mg PO HS 08/22/15 03/21/18 History Tamsulosin HCl [Flomax] 0.4 mg PO BID 08/22/15 03/21/18 History azaTHIOprine [Azathioprine] 50 mg PO BID 08/22/15 03/21/18 History Ferrous Sulfate [Feosol] 325 mg PO DAILY #30 tab 09/19/15 03/21/18 Rx Ergocalciferol [Vitamin D2] 50,000 unit PO MO 03/04/18 03/21/18 History Furosemide [Lasix] 40 mg PO DAILY 03/04/18 03/21/18 History Multivitamins, Thera [Multivitamin 2 tab PO DAILY 03/04/18 03/21/18 History (formulary)] predniSONE 20 mg PO DAILY 03/04/18 03/21/18 History Furosemide [Lasix] 20 mg PO DAILY@1200 03/21/18 03/21/18 History Insulin Aspart (Niacinamide) See Protocol SQ DAILY 03/21/18 03/21/18 History [Fiasp 100 Unit/ml Flextouch] Spironolactone 25 mg PO DAILY 03/21/18 03/21/18 History glipiZIDE/METFORMIN HCL 1 tab PO BID 03/21/18 03/21/18 History [glipiZIDE/METFORMIN HCL 2.5-500 mg] Allergies Allergy/AdvReac Type Severity Reaction Status Date / Time Iodinated Contrast- Oral and Allergy Anaphylaxis Verified 03/10/18 13:24 IV Dye [Iodinated Contrast Media - IV Dye] meperidine HCl [From Demerol] Allergy Hallucinati Verified 03/10/18 13:24 ons morphine Allergy Hallucinati Verified 03/10/18 13:24 ons shellfish derived [Shellfish] Allergy Anaphylaxis Verified 03/10/18 13:24 Physical Exam Vitals: Vital Signs Temp Pulse Pulse Resp BP BP Pulse Ox 03/22/18 00:32 97.7 F 77 12 96/60 99 03/21/18 20:51 98.4 F 80 12 94/60 99 03/21/18 18:13 98.5 F 86 18 106/50 98 03/21/18 18:00 90 13 100/49 100 03/21/18 17:34 98.8 F 03/21/18 17:30 95 18 101/62 97 03/21/18 17:00 95 22 95/54 98 03/21/18 16:30 93 20 105/71 98 03/21/18 16:03 20 03/21/18 16:00 87 16 86/49 99 03/21/18 15:10 97.9 F 03/21/18 15:00 87 12 95/53 99 03/21/18 14:30 84 15 91/49 100 03/21/18 14:00 85 13 91/51 100 03/21/18 13:30 82 12 93/50 100 03/21/18 13:00 109/59 95 03/21/18 12:00 123/62 100 03/21/18 11:53 99.1 F 95 20 123/62 99 Intake and Output 03/21/18 03/22/18 03/22/18 22:59 06:59 14:59 Output Total 350 175 150 Balance -350 -175 -150 Output: Urine 150 Stool 350 175 Other: Voiding Method Urinal Weight 81.828 kg Gen: This is an 78-year-old male. He is sitting up in bed appears to be mildly uncomfortable. HEENT: Head is atraumatic, normocephalic. Pupils equal, round. Sclerae is anicteric. NECK: Supple. No JVD. No lymphadenopathy. No thyromegaly. LUNGS: Clear to auscultation. No wheezes or rhonchi. No intercostal retractions. HEART: Regular rate and rhythm. No murmur. ABDOMEN: Soft. Bowel sounds are present. No masses. No tenderness. Ileostomy with watery type stools. EXTREMITIES: 2-3+ pedal edema bilaterally. Edema to the left knee with tenderness. NEUROLOGICAL: Patient is awake, alert and oriented x3. Cranial nerves 2 through 12 are grossly intact. Results CBC & Chem 7: 03/23/18 09:41 03/23/18 09:41 Labs: Abnormal Lab Results - Last 24 Hours (Table) 03/21/18 03/21/18 03/21/18 Range/Units 12:40 12:40 12:40 RBC 2.61 L (4.30-5.90) m/uL Hgb 11.1 L (13.0-17.5) gm/dL Hct 33.3 L (39.0-53.0) % MCV 127.3 H D (80.0-100.0) fL MCH 42.5 H (25.0-35.0) pg RDW 19.3 H (11.5-15.5) % Plt Count 61 L (150-450) k/uL Lymphocytes # 0.2 L (1.0-4.8) k/uL PT (9.0-12.0) sec INR (<1.2) Sodium 128 L (137-145) mmol/L Potassium 5.5 H (3.5-5.1) mmol/L Carbon Dioxide 19 L (22-30) mmol/L BUN 60 H (9-20) mg/dL Creatinine 1.53 H (0.66-1.25) mg/dL Glucose 213 H (74-99) mg/dL POC Glucose (mg/dL) (75-99) mg/dL Magnesium 1.4 L (1.6-2.3) mg/dL Total Bilirubin 4.3 H (0.2-1.3) mg/dL AST 69 H (17-59) U/L ALT 76 H (21-72) U/L Total Creatine Kinase 52 L (55-170) U/L CK-MB (CK-2) 2.7 H (0.0-2.4) ng/mL C-Reactive Protein (<10.0) mg/L Albumin 2.3 L (3.5-5.0) g/dL Urine Protein (Negative) Urine Blood (Negative) Ur Leukocyte Esterase (Negative) Urine RBC (0-5) /hpf Urine WBC (0-5) /hpf Amorphous Sediment (None) /hpf Hyaline Casts (0-2) /lpf Urine Mucus (None) /hpf 03/21/18 03/21/1803/21/18 Range/Units 12:40 16:14 16:14 RBC (4.30-5.90) m/uL Hgb (13.0-17.5) gm/dL Hct (39.0-53.0) % MCV (80.0-100.0) fL MCH (25.0-35.0) pg RDW (11.5-15.5) % Plt Count (150-450) k/uL Lymphocytes # (1.0-4.8) k/uL PT 17.9 H (9.0-12.0) sec INR 2.0 H (<1.2) Sodium (137-145) mmol/L Potassium 5.5 H (3.5-5.1) mmol/L Carbon Dioxide (22-30) mmol/L BUN (9-20) mg/dL Creatinine (0.66-1.25) mg/dL Glucose (74-99) mg/dL POC Glucose (mg/dL) (75-99) mg/dL Magnesium (1.6-2.3) mg/dL Total Bilirubin (0.2-1.3) mg/dL AST (17-59) U/L ALT (21-72) U/L Total Creatine Kinase (55-170) U/L CK-MB (CK-2) (0.0-2.4) ng/mL C-Reactive Protein 47.3 H (<10.0) mg/L Albumin (3.5-5.0) g/dL Urine Protein (Negative) Urine Blood (Negative) Ur Leukocyte Esterase (Negative) Urine RBC (0-5) /hpf Urine WBC (0-5) /hpf Amorphous Sediment (None) /hpf Hyaline Casts (0-2) /lpf Urine Mucus (None) /hpf 03/21/18 03/21/18 03/22/18 Range/Units 17:20 19:46 00:17 RBC (4.30-5.90) m/uL Hgb (13.0-17.5) gm/dL Hct (39.0-53.0) % MCV (80.0-100.0) fL MCH (25.0-35.0) pg RDW (11.5-15.5) % Plt Count (150-450) k/uL Lymphocytes # (1.0-4.8) k/uL PT (9.0-12.0) sec INR (<1.2) Sodium (137-145) mmol/L Potassium (3.5-5.1) mmol/L Carbon Dioxide (22-30) mmol/L BUN (9-20) mg/dL Creatinine (0.66-1.25) mg/dL Glucose (74-99) mg/dL POC Glucose (mg/dL) 231 H 200 H (75-99) mg/dL Magnesium (1.6-2.3) mg/dL Total Bilirubin (0.2-1.3) mg/dL AST (17-59) U/L ALT (21-72) U/L Total Creatine Kinase (55-170) U/L CK-MB (CK-2) (0.0-2.4) ng/mL C-Reactive Protein (<10.0) mg/L Albumin (3.5-5.0) g/dL Urine Protein Trace H (Negative) Urine Blood Moderate H (Negative) Ur Leukocyte Esterase Small H (Negative) Urine RBC 30 H (0-5) /hpf Urine WBC 19 H (0-5) /hpf Amorphous Sediment Rare H (None) /hpf Hyaline Casts 24 H (0-2) /lpf Urine Mucus Rare H (None) /hpf Microbiology - Last 24 Hours (Table) 03/21/18 12:40 Blood Culture - Final Blood Thrombosis Risk Factor Assmnt - DVT/VTE Prophylaxis DVT/VTE Prophylaxis: Pharmacologic Prophylaxis ordered, Contraindicated - See note - Choose All That Apply Each Risk Factor Represents 2 Points: Patient confined to bed Each Risk Factor Represents 3 Points: History of DVT/PE Thrombosis Risk Factor Assessment Total Risk Factor Score: 5 Thrombosis Risk Factor Assessment Level: High Risk Assessment and Plan Plan: 1. Acute kidney injury most likely secondary to poor oral intake and diuretics. Lasix and Aldactone dosing will be decreased. Monitor renal function daily. Metformin and glipizide discontinued. 2. Possible acute septic arthritis of the left knee. Consult with Dr. Castelan. Plan for I&D tomorrow. Consult with Dr. Pierce. Patient has been started on vancomycin. 3. History of autoimmune hepatitis has been on Imuran and oral prednisone. Consult with GI. 4. Diabetes mellitus type 2. Metformin and glipizide placed on hold. Levemir 10 units daily will be added and NovoLog scale and Humalog scale before meals and at bedtime. 5. Hypercoagulopathy most likely secondary to autoimmune hepatitis. Monitor INR daily. Patient has not been on Coumadin. 6. Electrolyte abnormalities with hyponatremia, hyperkalemia, hypomagnesemia. Continue to monitor. 7. History of DVT, many years ago with no evidence of recurrence.6. Varicose veins, stable. 8. Gastrointestinal prophylaxis. Pepcid. 9. Stage II decubitus ulcer on the coccyx, present on admission. Opticell local wound care. 10. DVT prophylaxis. SADIA hose and SCDs. No heparin due to INR of 2. Patient will be admitted to the hospital for a minimum of 2 nights stay. Discharge plan: To be determined. Impression and plan of care have been directed as dictated by the signing physician. Huong Bauer nurse practitioner acting as scribe for signing physician.
[2018-03-22 11:51] LABS: Glucose,Whole Blood 298 mg/dL (75-99)
--- NOTE | 2018-03-22 12:10 | CONS ---
CONSULTATION DATE OF CONSULTATION: 03/22/2018. REASON FOR CONSULTATION: Left knee pain and swelling. HISTORY: James is a very pleasant 78-year-old male. I visited him at the bedside today with his son. He has his a history of a left total knee arthroplasty done elsewhere approximately 12 years ago. The name of his surgeon is unknown to him or his son. It was done out of town. Around he had a day where he was a little more active than usual and the next day developed some pain and swelling in the left knee. This continued to progress over the last week or so. He then presented to [facility] yesterday with pain and swelling of the left knee. He was admitted. He does have a fairly extensive history of multiple medical conditions. He was admitted to the medical service and we were consulted for evaluation of the left knee pain and swelling. James is on chronic immunosuppressives. He is also diabetic. PAST MEDICAL HISTORY: Diabetes. He also has a history of deep vein thrombosis and liver disease. Also ulcerative colitis, hepatitis, kidney stones. SURGICAL HISTORY: Left total knee arthroplasty done elsewhere approximately 12 years ago. He has never smoked and he denies alcohol use. PHYSICAL EXAM: T-max 99.1, blood pressure 109/59. He is saturating 95% on room air. He feels comfortable, appears comfortable in his bed in no acute distress. His pain is relatively well controlled. Examination of the left knee: He has well-healed midline incision consistent with a total knee arthroplasty. There is no erythema, although he does have a moderate effusion of the left knee. He does have some chronic edema in both lower extremities, which is the usual amount of swelling as per his son and his history. He has intact flexion-extension, inversion-eversion of the left foot. There is brisk capillary refill in all of his toes and sensation is grossly intact in the foot as well. LABORATORY VALUES: White count 5.9, hemoglobin 11.1, platelets are 61. Blood glucose was 315 at 8 o'clock this morning. C-reactive protein 47.3. X-RAYS: X-rays of the knees reveal a left total knee arthroplasty. There is a cruciate retaining knee. There is no evidence of fracture, loosening of the components. IMPRESSION: 1. Possible septic left knee, status post left knee arthroplasty. 2. Multiple medical comorbidities requiring chronic immunosuppression. PLAN: Discussed my impression with both James and his son. Certainly, recommendation was to proceed with obtaining fluid from the left knee. I did talk to James about doing aspiration at the bedside today, which we proceeded with. I proceeded with an aspiration of the left knee. The superior lateral aspect of the knee was prepped with alcohol and chlorhexidine. I then utilized an 18-gauge needle. I was able to aspirate 55 mL of purulent appearing fluid from the left knee. This was then sent. Multiple cultures were sent as well as the fluid was sent for cell count with differential, crystal analysis, as well as cultures, both aerobic and anaerobic. James tolerated the aspiration without any adverse affects. Certainly, the fluid is concerning for deep infection in the left knee. This represents a very complex situation for James given his immunosuppressive status as well as the chronicity of the infection. I did have a long discussion with James's [id number] who is a nurse via phone as well as James's son and James about the implications of a deep infection in his knee with his underlying medical status. We will certainly consult Dr. Pierce and gain his opinion with regards to a strategy moving forward. One strategy given James's fairly significant medical comorbidities would do would be to perform an arthroscopic irrigation, debridement of the left knee with retention of his total knee arthroplasty and then proceeding to try to treat him with chronic suppressive antibiotic therapy. Second strategy would be for a two-stage revision, which in my opinion James would not tolerate very well. The other issue with two-stage revision for James is immunosuppressive status, which would certainly decrease the potential success of reimplanting another knee arthroplasty in the future that would not not have a very high risk of becoming infected. We will await the analysis of all of the fluid that was sent today. James is stable. He is not appearing septic at all. He has been started on IV antibiotics. Further treatment recommendations will be based on the fluid analysis as well as a discussion with Dr. Pierce about obtaining a plan for the best way to proceed with James. All of his and his son and his daughter in law's questions were all answered to their satisfaction. We will continue to follow. MMODL / IJN: [id number] /
[2018-03-22 12:12] LABS: Appearance,BF Cloudy; Color,BF Brown; Nucleated Cells, Body Fluid 161000 /uL; RBC, Body Fluid 20500 /uL
[2018-03-22 12:37] LABS: Mononuclear WBC,Body Fluid 25 %; Polynuclear WBC,Body Fluid 75 %; Total Cells Counted,Body Fluid 100
[2018-03-22] MEDS: MULTIVITAMINS, THERA 1 EACH TAB PO SCH (12:48)
[2018-03-22] MEDS: AMPICILLIN-SULBACTAM 3 GM in SODIUM CHLORIDE 0.9% 100 ML IVPB SCH ×2 (15:03→17:47)
[2018-03-22 17:25] LABS: Glucose,Whole Blood 282 mg/dL (75-99)
--- NOTE | 2018-03-22 17:50 | P.CONS ---
History of Present Illness - Reason for Consult Consult date: 03/22/18 Autoimmune hepatitis Requesting physician: Sixto Donaldson - Chief Complaint Knee pain, leg swelling - History of Present Illness The patient is a very pleasant 78-year-old male with a past medical history significant for autoimmune hepatitis currently on treatment with prednisone daily and associated decompensated cirrhosis, prior DVT, diabetes mellitus, prior left knee replacement presented to the hospital with complaints of left knee pain and increasing bilateral lower showing swallowing. Patient has a known history of ulcerative colitis status post proctocolectomy and formation of ileostomy in 1972 with revision of the ileostomy in 1998. The patient has been on Imuran therapy for approximately 20 years. In terms of his liver disease the patient was started on prednisone 20 mg daily after consultation at [facility] with the hepatology service. The patient has evidence of cirrhosis is serologically and had an EGD done for evaluation on 03/16/2018 with findings of portal hypertensive gastropathy and a hiatal hernia, and without evidence of varices. He is currently on home therapy with Lasix 40 mg daily. He reports increasing lower extremity swelling over the past few weeks. He had left knee pain on presentation and had drainage which was productive of purulent fluid. He is currently being treated for a deep infection of the left knee. Infectious disease and orthopedic surgery are following the patient. On presentation the patient's INR was 2, total bilirubin 4.3, alkaline phosphatase 121, AST 69, ALT 76, sodium 128 and creatinine 1.53, consistent with his chronic liver disease. Review of Systems REVIEW OF SYSTEMS: CARDIO: Denies any chest pain or palpitations. PULMONARY: Denies any shortness of breath or wheezing. GENITOURINARY: No dysuria or hematuria. MUSCULOSKELETAL: No weakness reported. SKIN: Denies any new rashes or lesions, jaundice or pallor. Did report Left knee erythema and swelling which is improved status post drainage. PSYCHIATRIC: Denies any depression or anxiety. NEUROLOGY: Denies headache, denies any new focal deficits. EARS: No tinnitus, discharge or new hearing loss. NOSE: No discharge or congestion. EYES: No pain in eyes or change in vision. CONSTITUTIONAL: No recent weight loss. No fever, chills, night sweats. Past Medical History Past Medical History: Diabetes Mellitus, Deep Vein Thrombosis (DVT), Liver Disease Additional Past Medical History / Comment(s): Ulcerative colitis, autoimmune hepatitis, kidney stones, varicose veins, diabetes mellitus type 2 steroid induced History of Any Multi-Drug Resistant Organisms: None Reported Past Surgical History: Cholecystectomy, Orthopedic Surgery Additional Past Surgical History / Comment(s): rt elbow I and D, ileostomy initially and 1972 and suffered from perforated small bowel at that time requiring small bowel resection, revision of ileostomy in 1998, left total knee replacement in 2011 in [place] 03/16/28 endoscopy. removal of kidney stones Past Anesthesia/Blood Transfusion Reactions: No Reported Reaction Past Psychological History: No Psychological Hx Reported Smoking Status: Never smoker Past Alcohol Use History: None Reported Additional Past Alcohol Use History / Comment(s): Patient is a lifelong nonsmoker. He denies any medical marijuana, marijuana, street drug use. He is very active the home with no assisted devices. He golfs daily Friday through Friday Past Drug Use History: None Reported - Past Family History Daughter(s) Family Medical History: Osteoarthritis (OA) Additional Family Medical History / Comment(s): Patient has one daughter with Mnire's and osteoarthritis Father Additional Family Medical History / Comment(s): Dad in his 70s from a motor vehicle accident. Mother Additional Family Medical History / Comment(s): Mother in her 60s from "natural causes "and had varicose veins. Brother(s) Additional Family Medical History / Comment(s): Patient has 2 brothers that have passed from "natural causes " Sister(s) Additional Family Medical History / Comment(s): Patient has one sister that is alive with dementia. Son(s) Family Medical History: Hyperlipidemia Additional Family Medical History / Comment(s): Patient has one son with high cholesterol. Medications and Allergies Home Medications Medication Instructions Recorded Confirmed Type Baclofen 5 mg PO BID 08/22/15 03/21/18 History Loratadine [Claritin] 10 mg PO DAILY 08/22/15 03/21/18 History Magnesium 250mg Tab 250 mg PO HS 08/22/15 03/21/18 History Tamsulosin HCl [Flomax] 0.4 mg PO BID 08/22/15 03/21/18 History azaTHIOprine [Azathioprine] 50 mg PO BID 08/22/15 03/21/18 History Ferrous Sulfate [Feosol] 325 mg PO DAILY #30 tab 09/19/15 03/21/18 Rx Ergocalciferol [Vitamin D2] 50,000 unit PO MO 03/04/18 03/21/18 History Furosemide [Lasix] 40 mg PO DAILY 03/04/18 03/21/18 History Multivitamins, Thera [Multivitamin 2 tab PO DAILY 03/04/18 03/21/18 History (formulary)] predniSONE 20 mg PO DAILY 03/04/18 03/21/18 History Furosemide [Lasix] 20 mg PO DAILY@1200 03/21/18 03/21/18 History Insulin Aspart (Niacinamide) See Protocol SQ DAILY 03/21/18 03/21/18 History [Fiasp 100 Unit/ml Flextouch] Spironolactone 25 mg PO DAILY 03/21/18 03/21/18 History glipiZIDE/METFORMIN HCL 1 tab PO BID 03/21/18 03/21/18 History [glipiZIDE/METFORMIN HCL 2.5-500 mg] Allergies Allergy/AdvReac Type Severity Reaction Status Date / Time Iodinated Contrast- Oral and Allergy Anaphylaxis Verified 03/10/18 13:24 IV Dye [Iodinated Contrast Media - IV Dye] meperidine HCl [From Demerol] Allergy Hallucinati Verified 03/10/18 13:24 ons morphine Allergy Hallucinati Verified 03/10/18 13:24 ons shellfish derived [Shellfish] Allergy Anaphylaxis Verified 03/10/18 13:24 Physical Exam Vitals: Vital Signs Temp Pulse Pulse Resp BP BP Pulse Ox 03/22/18 14:56 97.7 F 80 16 99/57 99 03/22/18 08:00 98.4 F 77 22 94/54 98 03/22/18 00:32 97.7 F 77 12 96/60 99 03/21/18 20:51 98.4 F 80 12 94/60 99 03/21/18 18:13 98.5 F 86 18 106/50 98 03/21/18 18:00 90 13 100/49 100 03/21/18 17:34 98.8 F Intake and Output 03/22/18 03/22/18 03/22/18 06:59 14:59 22:59 Intake Total 500 Output Total 175 300 Balance -175 200 Intake: Oral 500 Output: Urine 300 Stool 175 On physical examination, patient appears comfortable in no apparent distress. HEAD: Normocephalic, atraumatic. EYES: No scleral icterus. No conjunctival injection. MOUTH: No lesions, tongue midline. NECK: Trachea midline, no gross abnormalities. CHEST: Clear to auscultation with no wheezing or rhonchi appreciated. HEART: Regular rate and rhythm. ABDOMEN: Soft, surgical scars well-healed. Patient has an ileostomy with nonbloody output noted. Bowel sounds are positive. No organomegaly. No guarding or rigidity. EXTREMITIES: Bilateral pedal edema. SKIN: No rashes, no jaundice. NEUROLOGIC: Alert and oriented x3. No focal deficits. Results CBC & Chem 7: 03/21/18 12:40 03/21/18 16:14 Labs: Abnormal Lab Results - Last 24 Hours (Table) 03/21/18 03/21/18 03/21/18 Range/Units 16:14 16:14 17:20 ESR (0-15) mm/hr Potassium 5.5 H (3.5-5.1) mmol/L POC Glucose (mg/dL) (75-99) mg/dL Magnesium (1.6-2.3) mg/dL C-Reactive Protein 47.3 H (<10.0) mg/L Urine Protein Trace H (Negative) Urine Blood Moderate H (Negative) Ur Leukocyte Esterase Small H (Negative) Urine RBC 30 H (0-5) /hpf Urine WBC 19 H (0-5) /hpf Amorphous Sediment Rare H (None) /hpf Hyaline Casts 24 H (0-2) /lpf Urine Mucus Rare H (None) /hpf 03/21/18 03/22/18 03/22/18 Range/Units 19:46 00:17 08:21 ESR (0-15) mm/hr Potassium (3.5-5.1) mmol/L POC Glucose (mg/dL) 231 H 200 H 315 H (75-99) mg/dL Magnesium (1.6-2.3) mg/dL C-Reactive Protein (<10.0) mg/L Urine Protein (Negative) Urine Blood (Negative) Ur Leukocyte Esterase (Negative) Urine RBC (0-5) /hpf Urine WBC (0-5) /hpf Amorphous Sediment (None) /hpf Hyaline Casts (0-2) /lpf Urine Mucus (None) /hpf 03/22/18 03/22/1818 Range/Units 11:00 11:00 11:40 ESR 17 H (0-15) mm/hr Potassium (3.5-5.1) mmol/L POC Glucose (mg/dL) 298 H (75-99) mg/dL Magnesium 1.5 L (1.6-2.3) mg/dL C-Reactive Protein (<10.0) mg/L Urine Protein (Negative) Urine Blood (Negative) Ur Leukocyte Esterase (Negative) Urine RBC (0-5) /hpf Urine WBC (0-5) /hpf Amorphous Sediment (None) /hpf Hyaline Casts (0-2) /lpf Urine Mucus (None) /hpf 03/22/18 Range/Units 17:07 ESR (0-15) mm/hr Potassium (3.5-5.1) mmol/L POC Glucose (mg/dL) 282 H (75-99) mg/dL Magnesium (1.6-2.3) mg/dL C-Reactive Protein (<10.0) mg/L Urine Protein (Negative) Urine Blood (Negative) Ur Leukocyte Esterase (Negative) Urine RBC (0-5) /hpf Urine WBC (0-5) /hpf Amorphous Sediment (None) /hpf Hyaline Casts (0-2) /lpf Urine Mucus (None) /hpf Microbiology - Last 24 Hours (Table) 03/22/18 09:47 Anaerobic Culture - Preliminary Synovial Fluid 03/22/18 09:47 Body Fluid Culture - Preliminary Knee - Left 03/21/18 12:40 Blood Culture Gram Stain - Preliminary Blood 03/21/18 12:40 Blood Culture - Final Blood Assessment and Plan (1) Autoimmune hepatitis treated with steroids Narrative/Plan: With Imuran and prednisone, the patient has been seen by [facility]. No varices on recent EGD but the patient did have evidence of portal hypertensive gastropathy and is on diuretic therapy Current Visit: Yes Status: Acute Code(s): K75.4 - AUTOIMMUNE HEPATITIS SNOMED Code(s): 120065516 (2) Cirrhosis of liver Narrative/Plan: Denies any encephalopathy or no varices were seen on recent EGD the patient is on diuretic therapy for fluid overload. Liver enzymes are also consistent with cirrhosis. Current Visit: Yes Status: Acute Code(s): K74.60 - UNSPECIFIED CIRRHOSIS OF LIVER SNOMED Code(s): 12523145 (3) Ulcerative colitis Narrative/Plan: Status post proctocolectomy with ileostomy formation in 1972 and revision in 1998. Current Visit: Yes Status: Acute Code(s): K51.90 - ULCERATIVE COLITIS, UNSPECIFIED, WITHOUT COMPLICATIONS SNOMED Code(s): 32146389 (4) Knee pain Current Visit: Yes Status: Acute Code(s): M25.569 - PAIN IN UNSPECIFIED KNEE SNOMED Code(s): 15161893 Plan: Supportive care Okay for low-sodium diet Continue to monitor liver enzymes and Continue diuresis with Lasix and Aldactone, titrate based on clinical features of fluid overload Continue immunosuppression with prednisone and Imuran for now, we'll need to discuss with infectious disease given underlying infection of the knee Antibiotic therapy per infectious disease Orthopedic surgery following We'll continue to follow Thank you for allowing us to participate in the care of this patient
[2018-03-22 20:23] LABS: Glucose,Whole Blood 292 mg/dL (75-99)
--- NOTE | 2018-03-23 00:09 | P.CONS ---
History of Present Illness - Reason for Consult Consult date: 03/22/18 - Chief Complaint Pain left knee - History of Present Illness Pleasant 78-year-old male with an extensive past medical history that includes ulcerative colitis with surgical intervention, autoimmune hepatitis, deep venous thrombosis 2, diabetes mellitus type 2 steroid-induced. The patient is chronically immunosuppressed due to Imuran therapy that he has been on for his autoimmune hepatitis. Recently was seen by Dr. Baez at [facility] for evaluation of his autoimmune hepatitis. Due to some ongoing activity prednisone was added to his Imuran. He has recently been seen by Dr. Posadas an EGD was performed to evaluate for varices. He is due for liver MRI in the near future. Patient started having increasing difficulties with ambulation. He has a known history of a left total knee arthroplasty performed at [facility] 6 years ago. He has been doing relatively well until the sudden onset of left knee pain with difficulty with ambulation. Subsequently he presented to the emergency center for evaluation of the significant left knee and leg pain that made it difficult for him to attempt to ambulate. He does not believe he has had a significant fever or chills. But does feel very poorly overall. His family members are present. There is concern about his autoimmune hepatitis and gastroenterology has been requested Review of Systems HEENT:Denies headache or acute visual change. Denies sinus or mouth discomforts. Denies neck stiffness or pain. Denies significant oral cavity pain. Denies difficulty on swallowing. Lungs: Denies significant shortness of breath, cough, sputum production, or hemoptysis. Cardiovascular: Denies significant shortness of breath, chest pain, chest wall pain, orthopnea, dyspnea on exertion, syncope Gastrointestinal: Has chronic loose stool through his ostomy which is not new. No change in his bowel habit. No nausea or emesis. Recently started on steroids for his autoimmune hepatitis in addition to his Imuran Musculoskeletal: As per the HPI severe pain left knee Skin: Denies new rash or lesions. No new ulcers or wounds are related.. Neuro: Denies headache or visual change. Denies any new onset weakness or difficulty with ambulation. Denies falls or seizures. Psychiatric:Denies anxiety or depression. Endocrine: Denies significant fatigue, denies significant weight loss or weight gain. Past Medical History Past Medical History: Diabetes Mellitus, Deep Vein Thrombosis (DVT), Liver Disease Additional Past Medical History / Comment(s): Ulcerative colitis, autoimmune hepatitis, kidney stones, varicose veins, diabetes mellitus type 2 steroid induced History of Any Multi-Drug Resistant Organisms: None Reported Past Surgical History: Cholecystectomy, Orthopedic Surgery Additional Past Surgical History / Comment(s): rt elbow I and D, ileostomy initially and 1972 and suffered from perforated small bowel at that time requiring small bowel resection, revision of ileostomy in 1998, left total knee replacement in 2011 in [place] 03/16/28 endoscopy. removal of kidney stones Past Anesthesia/Blood Transfusion Reactions: No Reported Reaction Past Psychological History: No Psychological Hx Reported Smoking Status: Never smoker Past Alcohol Use History: None Reported Additional Past Alcohol Use History / Comment(s): Patient is a lifelong nonsmoker. He denies any medical marijuana, marijuana, street drug use. He is very active the home with no assisted devices. He golfs daily Friday through Friday in season. 58 years. Lives with his who is starting to have some early dementia. Of alcohol use. Retired. No experience Past Drug Use History: None Reported - Past Family History Daughter(s) Family Medical History: Osteoarthritis (OA) Additional Family Medical History / Comment(s): Patient has one daughter with Mnire's and osteoarthritis Father Additional Family Medical History / Comment(s): Dad in his 70s from a motor vehicle accident. Mother Additional Family Medical History / Comment(s): Mother in her 60s from "natural causes "and had varicose veins. Brother(s) Additional Family Medical History / Comment(s): Patient has 2 brothers that have passed from "natural causes " Sister(s) Additional Family Medical History / Comment(s): Patient has one sister that is alive with dementia. Son(s) Family Medical History: Hyperlipidemia Additional Family Medical History / Comment(s): Patient has one son with high cholesterol. Medications and Allergies Home Medications and Allergies Comment(s): Current Medications Hydrocodone Bitart/Acetaminophen (Holliday 5-325) 1 each PO Q4HR PRN PRN Reason: Moderate Pain Last Admin: 03/22/18 12:47 Dose: 1 each Azathioprine (Imuran) 50 mg PO BID ALEKS Last Admin: 03/22/18 21:42 Dose: 50 mg Baclofen (Lioresal) 5 mg PO BID ALEKS Last Admin: 03/22/18 21:42 Dose: 5 mg Ergocalciferol (Vitamin D2) 50,000 unit PO MO [facility] Famotidine (Pepcid) 20 mg PO BID [facility] Last Admin: 03/22/18 21:42 Dose: 20 mg Ferrous Sulfate (Feosol) 325 mg PO DAILY [facility] Last Admin: 03/22/18 08:54 Dose: 325 mg Furosemide (Lasix) 20 mg PO BID@0900,1600 [facility] Last Admin: 03/22/18 15:28 Dose: 20 mg Hydromorphone HCl (Dilaudid) 0.5 mg IVP Q4HR PRN PRN Reason: Pain Vancomycin HCl 1,500 mg/ (Sodium Chloride) 250 mls @ 125 mls/hr IVPB Q24H [facility] Last Admin: 03/22/18 09:12 Dose: 125 mls/hr Ampicillin Sodium/Sulbactam (Sodium 3 gm/ Sodium Chloride) 100 mls @ 200 mls/ hr IVPB Q6HR [facility] Last Admin: 03/22/18 17:47 Dose: Not Given Insulin Aspart (Novolog) 0 unit SQ [id number] [facility]; Protocol Last Admin: 03/22/18 21:42 Dose: 5 unit Insulin Detemir (Levemir) 10 unit SQ DAILY [facility] Last Admin: 03/22/18 10:06 Dose: 10 unit Loratadine (Claritin) 10 mg PO DAILY [facility] Last Admin: 03/22/18 08:54 Dose: 10 mg Magnesium Oxide (Mag-Ox) 200 mg PO HS [facility] Last Admin: 03/22/18 21:42 Dose: 200 mg Multivitamins (Theragran) 1 each PO 1200 [facility] Last Admin: 03/22/18 12:48 Dose: 1 each Naloxone HCl (Narcan) 0.2 mg IV Q2M PRN PRN Reason: Opioid Reversal Prednisone () 20 mg PO DAILY [facility] Last Admin: 03/22/18 09:01 Dose: 20 mg Spironolactone (Aldactone) 12.5 mg PO DAILY [facility] Last Admin: 03/22/18 09:26 Dose: 12.5 mg Tamsulosin HCl (Flomax) 0.4 mg PO BID [facility] Last Admin: 03/22/18 21:42 Dose: 0.4 mg Home Medications Medication Instructions Recorded Confirmed Type Baclofen 5 mg PO BID 08/22/15 03/21/18 History Loratadine [Claritin] 10 mg PO DAILY 08/22/15 03/21/18 History Magnesium 250mg Tab 250 mg PO HS 08/22/15 03/21/18 History Tamsulosin HCl [Flomax] 0.4 mg PO BID 08/22/15 03/21/18 History azaTHIOprine [Azathioprine] 50 mg PO BID 08/22/15 03/21/18 History Ferrous Sulfate [Feosol] 325 mg PO DAILY #30 tab 09/19/15 03/21/18 Rx Ergocalciferol [Vitamin D2] 50,000 unit PO MO 03/04/18 03/21/18 History Furosemide [Lasix] 40 mg PO DAILY 03/04/18 03/21/18 History Multivitamins, Thera [Multivitamin 2 tab PO DAILY 03/04/18 03/21/18 History (formulary)] predniSONE 20 mg PO DAILY 03/04/18 03/21/18 History Furosemide [Lasix] 20 mg PO DAILY@1200 03/21/18 03/21/18 History Insulin Aspart (Niacinamide) See Protocol SQ DAILY 03/21/18 03/21/18 History [Fiasp 100 Unit/ml Flextouch] Spironolactone 25 mg PO DAILY 03/21/18 03/21/18 History glipiZIDE/METFORMIN HCL 1 tab PO BID 03/21/18 03/21/18 History [glipiZIDE/METFORMIN HCL 2.5-500 mg] Allergies Allergy/AdvReac Type Severity Reaction Status Date / Time Iodinated Contrast- Oral and Allergy Anaphylaxis Verified 03/10/18 13:24 IV Dye [Iodinated Contrast Media - IV Dye] meperidine HCl [From Demerol] Allergy Hallucinati Verified 03/10/18 13:24 ons morphine Allergy Hallucinati Verified 03/10/18 13:24 ons shellfish derived [Shellfish] Allergy Anaphylaxis Verified 03/10/18 13:24 Physical Exam Vitals: Vital Signs Temp Pulse Resp BP Pulse Ox 03/22/18 19:50 98.1 F 77 16 101/58 97 03/22/18 14:56 97.7 F 80 16 99/57 99 03/22/18 08:00 98.4 F 77 22 94/54 98 03/22/18 00:32 97.7 F 77 12 96/60 99 Intake and Output 03/22/18 03/22/18 03/23/18 14:59 22:59 06:59 Intake Total 500 Output Total 300 100 Balance 200 -100 Intake: Oral 500 Output: Urine 300 100 Pleasant 78-year-old male in no acute distress while he is supine in bed HEENT: Anicteric conjunctiva are pink and moist nasal mucosa grossly intact without significant lesions, there is no thrush. Neck: The neck is supple without significant lymphadenopathy or thyromegaly. Lungs: Good bilateral air entry without significant crackles or wheezing. There is no significant bronchial sounds. There is no egophony or dullness. Heart: Regular rate and rhythm with an audible S1-S2, no S3 no S4. There is no significant murmur click or rub, PMI was nondisplaced. Abdomen: Positive bowel sounds soft and nontender without palpable masses or organomegaly. There was no guarding or rebound. Ostomy functioning well Extremities: The upper extremities have excellent pulses they are symmetric, no significant petechiae or telangiectasia. No splinter hemorrhages were noted. Right lower extremity is without acute abnormality. Left leg reveals evidence of the significant swelling to the left knee is extremely painful for any temps for range of motion it is warm to touch without 7 erythema there was no significant inguinal lymphadenopathy to the left and no other abnormal lymph nodes are noted Neuro: Awake alert oriented to person place and time. There are no acute new gross focal sensory motor deficits. Results CBC & Chem 7: 03/21/18 12:40 03/21/18 16:14 Labs: Abnormal Lab Results - Last 24 Hours (Table) 03/22/18 03/22/18 03/22/18 Range/Units 00:17 08:21 11:00 ESR 17 H (0-15) mm/hr POC Glucose (mg/dL) 200 H 315 H (75-99) mg/dL Magnesium (1.6-2.3) mg/dL 03/22/18 03/22/18 03/22/18 Range/Units 11:00 11:40 17:07 ESR (0-15) mm/hr POC Glucose (mg/dL) 298 H 282 H (75-99) mg/dL Magnesium 1.5 L (1.6-2.3) mg/dL 03/22/18 Range/Units 20:12 ESR (0-15) mm/hr POC Glucose (mg/dL) 292 H (75-99) mg/dL Magnesium (1.6-2.3) mg/dL Microbiology - Last 24 Hours (Table) 03/22/18 09:47 Gram Stain - Preliminary Knee - Left Body Fluid Culture - Preliminary 03/22/18 09:47 Anaerobic Culture - Preliminary Synovial Fluid 03/21/18 12:40 Blood Culture Gram Stain - Preliminary Blood 03/21/18 12:40 Blood Culture - Final Blood Laboratory Results WBC 5.9 k/uL (3.8-10.6) 03/21/18 12:40 RBC 2.61 m/uL (4.30-5.90) L 03/21/18 12:40 Hgb 11.1 gm/dL (13.0-17.5) L 03/21/18 12:40 Hct 33.3 % (39.0-53.0) L 03/21/18 12:40 MCV 127.3 fL (80.0-100.0) H D 03/21/18 12:40 MCH 42.5 pg (25.0-35.0) H 03/21/18 12:40 MCHC 33.4 g/dL (31.0-37.0) 03/21/18 12:40 RDW 19.3 % (11.5-15.5) H 03/21/18 12:40 Plt Count 61 k/uL (150-450) L 03/21/18 12:40 Neutrophils % 93 % 03/21/18 12:40 Lymphocytes % 3 % 03/21/18 12:40 Monocytes % 3 % 03/21/18 12:40 Eosinophils % 0 % 03/21/18 12:40 Basophils % 0 % 03/21/18 12:40 Neutrophils # 5.4 k/uL (1.3-7.7) 03/21/18 12:40 Lymphocytes # 0.2 k/uL (1.0-4.8) L 03/21/18 12:40 Monocytes # 0.2 k/uL (0-1.0) 03/21/18 12:40 Eosinophils # 0.0 k/uL (0-0.7) 03/21/18 12:40 Basophils # 0.0 k/uL (0-0.2) 03/21/18 12:40 Polychromasia Present 03/21/18 12:40 Poikilocytosis (manual Present 03/21/18 12:40 Anisocytosis Slight 03/21/18 12:40 Macrocytosis Marked 03/21/18 12:40 ESR 17 mm/hr (0-15) H 03/22/18 11:00 PT 17.9 sec (9.0-12.0) H 03/21/18 12:40 INR 2.0 (<1.2) H 03/21/18 12:40 APTT 29.3 sec (22.0-30.0) 03/21/18 12:40 Sodium 128 mmol/L (137-145) L 03/21/18 12:40 Potassium 5.5 mmol/L (3.5-5.1) H 03/21/18 16:14 Chloride 104 mmol/L (98-107) 03/21/18 12:40 Carbon Dioxide 19 mmol/L (22-30) L 03/21/18 12:40 Anion Gap 5 mmol/L 03/21/18 12:40 BUN 60 mg/dL (9-20) H 03/21/18 12:40 Creatinine 1.53 mg/dL (0.66-1.25) H 03/21/18 12:40 Est GFR (CKD-EPI)AfAm 49 (>60 ml/min/1.73 sqM) 03/21/18 12:40 Est GFR (CKD-EPI)NonAf 42 (>60 ml/min/1.73 sqM) 03/21/18 12:40 Glucose 213 mg/dL (74-99) H 03/21/18 12:40 POC Glucose (mg/dL) 292 mg/dL (75-99) H 03/22/18 20:12 POC Glu Eeler ID Julissa Belcher 03/22/18 20:12 Calcium 8.7 mg/dL (8.4-10.2) 03/21/18 12:40 Magnesium 1.5 mg/dL (1.6-2.3) L 03/22/18 11:00 Total Bilirubin 4.3 mg/dL (0.2-1.3) H 03/21/18 12:40 AST 69 U/L (17-59) H 03/21/18 12:40 ALT 76 U/L (21-72) H 03/21/18 12:40 Alkaline Phosphatase 121 U/L (38-126) 03/21/18 12:40 Total Creatine Kinase 52 U/L (55-170) L 03/21/18 12:40 CK-MB (CK-2) 2.7 ng/mL (0.0-2.4) H 03/21/18 12:40 CK-MB (CK-2) Rel Index 5.2 03/21/18 12:40 Troponin I <0.012 ng/mL (0.000-0.034) 03/21/18 12:40 C-Reactive Protein 47.3 mg/L (<10.0) H 03/21/18 16:14 NT-Pro-B Natriuret Pep 1630 pg/mL 03/21/18 12:40 Total Protein 7.4 g/dL (6.3-8.2) 03/21/18 12:40 Albumin 2.3 g/dL (3.5-5.0) L 03/21/18 12:40 Urine Color Yellow 03/21/18 17:20 Urine Appearance Clear (Clear) 03/21/18 17:20 Urine pH 5.5 (5.0-8.0) 03/21/18 17:20 Ur Specific [place] 1.014 (1.001-1.035) 03/21/18 17:20 Urine Protein Trace (Negative) H 03/21/18 17:20 Urine Glucose (UA) Negative (Negative) 03/21/18 17:20 Urine Ketones Negative (Negative) 03/21/18 17:20 Urine Blood Moderate (Negative) H 03/21/18 17:20 Urine Nitrite Negative (Negative) 03/21/18 17:20 Urine Bilirubin Negative (Negative) 03/21/18 17:20 Urine Urobilinogen <2.0 mg/dL (<2.0) 03/21/18 17:20 Ur Leukocyte Esterase Small (Negative) H 03/21/18 17:20 Urine RBC 30 /hpf (0-5) H 03/21/18 17:20 Urine WBC 19 /hpf (0-5) H 03/21/18 17:20 Amorphous Sediment Rare /hpf (None) H 03/21/18 17:20 Hyaline Casts 24 /lpf (0-2) H 03/21/18 17:20 Urine Mucus Rare /hpf (None) H 03/21/18 17:20 Fluid Source Synovial 03/22/18 09:47 Fluid Color Brown 03/22/18 09:47 Fluid Appearance Cloudy 03/22/18 09:47 Fluid RBC 13154 /uL 03/22/18 09:47 Fluid Nucleated Cells [id number] /uL 03/22/18 09:47 Fluid Polynuclear WBCs 75 % 03/22/18 09:47 Fluid Mononuclear WBCs 25 % 03/22/18 09:47 Synovial Source Left Knee 03/22/18 09:47 Microbiology 03/22/18 09:47 Knee - Left Gram Stain - Preliminary 03/22/18 09:47 Knee - Left Body Fluid Culture - Preliminary 03/22/18 09:47 Synovial Fluid Anaerobic Culture - Preliminary 03/21/18 12:40 Blood Blood Culture Gram Stain - Preliminary 03/21/18 12:40 Blood Blood Culture - Final Comments: Left knee x-ray without evidence of fracture positive edema Chest x-ray: report reviewed (No acute infiltrate) Assessment and Plan (1) Autoimmune hepatitis treated with steroids Current Visit: Yes Status: Acute Code(s): K75.4 - AUTOIMMUNE HEPATITIS SNOMED Code(s): 878158292 (2) Cirrhosis of liver Current Visit: Yes Status: Acute Code(s): K74.60 - UNSPECIFIED CIRRHOSIS OF LIVER SNOMED Code(s): 90349302 (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 There is evidence of a significant effusion which is down been aspirated by orthopedic surgery. Improvement material was found. Infectious diseases consultation was requested given the positive blood cultures. Of note gram-positive bacilli have been isolated from the blood culture. Given the patient's underlying liver disease and immunosuppressed status there is concern that this could be Listeria and consequently Unasyn is added in addition to vancomycin therapy at this time pending further results. Aspiration needs been performed and await culture results. It appears that an arthroscopic intervention will be occurring tomorrow for further evaluation of that left knee. Gastroenterology is come by to see the patient also await their input. We'll likely need a protracted course of antibiotic therapy given the infection to the left knee arthroplasty. Current Visit: Yes Status: Acute Code(s): T84.54XA - INFECT/INFLM REACTION DUE TO INTERNAL LEFT KNEE PROSTH, INIT; Z96.652 - PRESENCE OF LEFT ARTIFICIAL KNEE JOINT SNOMED Code(s): 478984421
[2018-03-23] MEDS: AMPICILLIN-SULBACTAM 3 GM in SODIUM CHLORIDE 0.9% 100 ML IVPB SCH ×4 (00:36→20:44)
[2018-03-23] MEDS: HYDROcodone/APAP 5-325MG 1 EACH TAB PO PRN ×4 (00:36→20:42)
[2018-03-23 02:37] LABS: Glucose,Whole Blood 215 mg/dL (75-99)
[2018-03-23] MEDS: INSULIN ASPART 100 UNIT/ML 1 ML 10 ML VIAL SQ SCH ×5 (02:39→22:48)
[2018-03-23] MEDS: FAMOTIDINE 20 MG TAB PO SCH ×2 (07:55→22:49)
[2018-03-23] MEDS: LORATADINE 10 MG TAB PO SCH (07:55)
[2018-03-23] MEDS: FUROSEMIDE 20 MG TAB PO SCH ×2 (07:55→19:47)
[2018-03-23] MEDS: TAMSULOSIN 0.4 MG CAP.ER.24H PO SCH ×2 (07:55→22:49)
[2018-03-23] MEDS: predniSONE 20 MG TAB PO SCH (07:56)
[2018-03-23] MEDS: BACLOFEN 10 MG TAB PO SCH ×2 (07:59→22:49)
[2018-03-23] MEDS: SPIRONOLACTONE 25 MG TAB PO SCH (07:59)
[2018-03-23] MEDS: FERROUS SULFATE 325 MG TAB PO SCH (08:00)
[2018-03-23] MEDS: azaTHIOprine 50 MG TAB PO SCH ×2 (08:02→22:48)
[2018-03-23] MEDS: VANCOMYCIN 1,500 MG in SODIUM CHLORIDE 0.9% 250 ML IVPB SCH (08:04)
[2018-03-23] MEDS: INSULIN DETEMIR 100 UNIT/ML 10 ML VIAL SQ SCH (08:33)
[2018-03-23 08:40] LABS: Glucose,Whole Blood 269 mg/dL (75-99)
[2018-03-23] MEDS ORDERED: ERGOCALCIFEROL 50,000 UNIT CAP PO SCH (09:00)
--- NOTE | 2018-03-23 09:45 | P.PN ---
Subjective Progress Note Date: 03/23/18 Principal diagnosis: autoimmune hepatitis 78-year-old gentleman patient of Dr. Davis with a history of recent diagnosis of autoimmune hepatitis admitted with infection left knee. Scheduled for ID of left knee today with OA. Receiving Imuran and prednisone therapy. LFTs a few days ago TB 4.3. AST 69. ALT 76. AP 121. CMP pending. Objective - Vital Signs Vital signs: Vital Signs Temp 97.9 F 03/23/18 07:00 Pulse 81 03/23/18 07:00 Resp 17 03/23/18 07:00 BP 117/73 03/23/18 07:00 Pulse Ox 96 03/23/18 07:00 Intake & Output 03/22/18 03/23/18 03/23/18 18:59 06:59 18:59 Intake Total 500 220 Output Total 300 700 Balance 200 -480 Intake: Intake, IV Titration 220 Amount Sodium Chloride 0.9% 1, 220 000 ml @ 20 mls/hr IV . Q24H [facility] Rx#:[id number] Oral 500 0 Output: Urine 300 700 Other: Voiding Method Urinal - Exam General appearance: The patient is alert, oriented, in no acute distress. HET: Head is normocephalic and atraumatic. Pupils are equal and reactive. Oropharynx is clear without lesions. Neck: Supple without lymphadenopathy. Trachea midline. Heart: S1 S2. Regular rate and rhythm. Lungs: No crackles or wheezes are heard. Abdomen: Soft, nontender, nondistended with bowel sounds. No peritoneal signs. No palpable organomegaly or masses. - Labs CBC & Chem 7: 03/25/18 08:12 03/25/18 08:12 Labs: Abnormal Lab Results - Last 24 Hours (Table) 03/22/18 03/22/18 03/22/18 Range/Units 11:00 11:00 11:40 ESR 17 H (0-15) mm/hr POC Glucose (mg/dL) 298 H (75-99) mg/dL Magnesium 1.5 L (1.6-2.3) mg/dL 03/22/18 03/22/18 03/23/18 Range/Units 17:07 20:12 02:25 ESR (0-15) mm/hr POC Glucose (mg/dL) 282 H 292 H 215 H (75-99) mg/dL Magnesium (1.6-2.3) mg/dL 03/23/18 Range/Units 08:29 ESR (0-15) mm/hr POC Glucose (mg/dL) 269 H (75-99) mg/dL Magnesium (1.6-2.3) mg/dL Microbiology - Last 24 Hours (Table) 03/22/18 09:47 Gram Stain - Preliminary Knee - Left Body Fluid Culture - Preliminary 03/22/18 09:47 Anaerobic Culture - Preliminary Synovial Fluid 03/21/18 12:40 Blood Culture Gram Stain - Preliminary Blood Assessment and Plan (1) Autoimmune hepatitis treated with steroids Current Visit: Yes Status: Acute Code(s): K75.4 - AUTOIMMUNE HEPATITIS SNOMED Code(s): 341675064 (2) Cirrhosis of liver Current Visit: Yes Status: Acute Code(s): K74.60 - UNSPECIFIED CIRRHOSIS OF LIVER SNOMED Code(s): 60322116 (3) Infection of total left knee replacement Current Visit: Yes Status: Acute Code(s): T84.54XA - INFECT/INFLM REACTION DUE TO INTERNAL LEFT KNEE PROSTH, INIT; Z96.652 - PRESENCE OF LEFT ARTIFICIAL KNEE JOINT SNOMED Code(s): 629290325 Plan: 1. Patient scheduled for surgery. We'll continue to follow. Await CMP. Continue with Imuran and prednisone therapy. IV antibiotics. ID following closely. Appointment at [facility] April 07/MRI for 2nd opinion per family request. Assessment and plan a care discussed with Dr. Harrington
[2018-03-23 10:05] LABS: Anisocytosis Slight; Basophils % (A) 0 %; Eosinophils # (A) 0.1 k/uL (0-0.7); Eosinophils % (A) 1 %; HCT 30.9 % (39.0-53.0); HGB 10.4 gm/dL (13.0-17.5); Lymphocytes # (A) 0.3 k/uL (1.0-4.8); Lymphocytes % (A) 4 %; MCHC 33.8 g/dL (31.0-37.0); Macrocytosis Marked; Mean Platelet Volume 7.8; Monocytes # (A) 0.2 k/uL (0-1.0); Monocytes % (A) 3 %; Neutrophils # (A) 5.7 k/uL (1.3-7.7); Neutrophils % (A) 91 %; RBC 2.41 m/uL (4.30-5.90); RDW 19.3 % (11.5-15.5); WBC 6.3 k/uL (3.8-10.6)
[2018-03-23 10:09] LABS: MCH 43.3 pg (25.0-35.0); Platelet Count 47 k/uL (150-450)
[2018-03-23 10:16] LABS: Albumin 1.7 g/dL (3.5-5.0); Calcium 7.7 mg/dL (8.4-10.2); Potassium 4.8 mmol/L (3.5-5.1); Total Bilirubin 2.3 mg/dL (0.2-1.3); Total Protein 5.9 g/dL (6.3-8.2)
[2018-03-23 10:20] LABS: Prothrombin Time 18.2 sec (9.0-12.0)
[2018-03-23 10:26] LABS: Poikilocytosis (M) Present; Target Cells Present; Toxic Granulation Present
[2018-03-23] MEDS: MULTIVITAMINS, THERA 1 EACH TAB PO SCH (11:27)
[2018-03-23 11:40] LABS: Glucose,Whole Blood 235 mg/dL (75-99)
[2018-03-23 12:13] LABS: Hemoglobin A1C 7.3 % (4.0-6.0)
--- NOTE | 2018-03-23 13:05 | P.PN ---
Subjective Progress Note Date: 03/23/18 This is a 78-year-old male patient of Dr. Donaldson with past medical history for diabetes mellitus type 2 steroid induced, DVT many years ago on 2 episodes, autoimmune hepatitis on Imuran, ulcerative colitis status post ileostomy originally in 1972 and revision in 1998 currently on azathioprine, kidney stones, varicose veins. Patient recently seen by Dr. Lopez for over a kidney stone and due to edema was sent into the office and has been seen several times by MINA Adams, with medication changes made by increasing Lasix and adding Zaroxolyn and Aldactone. He has ongoing problems with left- sided knee pain and fluid retention. He states he was unable to move his left knee and hip and that was recently came in to the hospital for evaluation. He denies having any fever, no nausea or vomiting. He has had decreased appetite. He has an ileostomy that has liquid output which is normal for him. He denies having any falls. Patient came into [facility] emergency center for evaluation. Chest x-ray showed no acute process. Knee x- ray showed diffuse subcutaneous soft tissue swelling with no acute fracture dislocation left knee arthroplasty or [place] bone. His white count was normal at 5.9, hemoglobin 11.1, platelet count 61, INR 2.0. Sodium 128, potassium 5.5 , CO2 19, BUN 16 creatinine 1.53 blood sugars have been elevated at 200s to 315. Magnesium was 1.4, total bilirubin 4.3, AST 69, ALT 76, alkaline phosphatase 121. Troponin was negative. C-reactive protein 47.3. Albumin 2.3 , proBNP 1630. Urinalysis was clear with moderate blood, small leukoesterase. There was concern for septic arthroplasty left knee and electrolyte abnormalities and acute kidney injury and patient was admitted to the Medr floor consults were requested with Dr. Pierce and Dr. Castelan. Subsequently, patient is been seen by Dr. Castelan and aspiration was done with concern for infection and plan is for I&D tomorrow in the OR. Consult with GI for autoimmune hepatitis. 03/23: Patient complains of feeling uncomfortable secondary to back pain from lying in bed. He is complaining of spasms across his back. He has slight decreased swelling to the left knee today. Blood culture showing gram-positive bacilli. He is scheduled for I&D today with Dr. Castelan. Patient has been seen by Dr. Pierce and he has added Unasyn to cover for Listeria and continued vancomycin. Repeat lab work today shows a hemoglobin 10.4, platelet count 47, INR 2, sodium 128, BUN 56 and creatinine 1.3. Blood sugars are running in the 200s. Patient received only half of his Levemir apparently in anticipation of nothing by mouth status. Total bilirubin 2.3, AST, ALT and alkaline phosphatase are within normal range. Albumin is 1.7. The patient has been seen by GI with recommendations continue Lasix and Aldactone, monitor liver enzymes, low sodium diet. Review of Systems All systems: negative Constitutional: Reports fatigue, Reports poor appetite, Reports weakness, Denies chills, Denies fever Eyes: denies blurred vision, denies pain Ears, nose, mouth and throat: Denies dysphagia, Denies headache, Denies sore throat, Denies vertigo Cardiovascular: Reports leg edema, Denies chest pain, Denies shortness of breath , Denies syncope Respiratory: Denies cough, Denies cough with sputum, Denies excessive sputum, Denies hemoptysis, Denies wheezing Gastrointestinal: Reports loss of appetite, Denies abdominal pain, Denies diarrhea, Denies melena, Denies nausea, Denies vomiting Genitourinary: Denies dysuria Musculoskeletal: Reports gait dysfunction, Denies myalgias Musculoskeletal: left: knee pain, knee swelling, complaining of low back pain Integumentary: Reports wounds, Denies pruritus, Denies rash Neurological: Denies change in mentation, Denies confusion, Denies numbness, Denies weakness Psychiatric: Denies anxiety, Denies depression Endocrine: Denies fatigue, Denies weight change Objective - Vital Signs Vital signs: Vital Signs Temp 97.9 F 03/23/18 07:00 Pulse 81 03/23/18 07:00 Resp 17 03/23/18 07:00 BP 117/73 03/23/18 07:00 Pulse Ox 96 03/23/18 07:00 Intake & Output 03/22/18 03/23/18 03/23/18 18:59 06:59 18:59 Intake Total 500 220 Output Total 300 700 Balance 200 -480 Intake: Intake, IV Titration 220 Amount Sodium Chloride 0.9% 1, 220 000 ml @ 20 mls/hr IV . Q24H [facility] Rx#:[id number] Oral 500 0 Output: Urine 300 700 Other: Voiding Method Urinal - Exam Gen: This is an 78-year-old male. He is sitting up in bed appears to be mildly uncomfortable mostly from lower back discomfort. HEENT: Head is atraumatic, normocephalic. Pupils equal, round. Sclerae is anicteric. NECK: Supple. No JVD. No lymphadenopathy. No thyromegaly. LUNGS: Clear to auscultation. No wheezes or rhonchi. No intercostal retractions. HEART: Regular rate and rhythm. No murmur. ABDOMEN: Soft. Bowel sounds are present. No masses. No tenderness. Ileostomy with watery type stools. EXTREMITIES: 2+ pedal edema bilaterally. Edema to the left knee with tenderness. NEUROLOGICAL: Patient is awake, alert and oriented x3. Cranial nerves 2 through 12 are grossly intact. - Labs CBC & Chem 7: 03/23/18 09:41 03/23/18 09:41 Labs: Abnormal Lab Results - Last 24 Hours (Table) 03/22/18 03/22/18 03/22/18 Range/Units 11:00 11:00 11:40 ESR 17 H (0-15) mm/hr POC Glucose (mg/dL) 298 H (75-99) mg/dL Magnesium 1.5 L (1.6-2.3) mg/dL 03/22/18 03/22/18 03/23/18 Range/Units 17:07 20:12 02:25 ESR (0-15) mm/hr POC Glucose (mg/dL) 282 H 292 H 215 H (75-99) mg/dL Magnesium (1.6-2.3) mg/dL 03/23/18 Range/Units 08:29 ESR (0-15) mm/hr POC Glucose (mg/dL) 269 H (75-99) mg/dL Magnesium (1.6-2.3) mg/dL Microbiology - Last 24 Hours (Table) 03/22/18 09:47 Gram Stain - Preliminary Knee - Left Body Fluid Culture - Preliminary 03/22/18 09:47 Anaerobic Culture - Preliminary Synovial Fluid 03/21/18 12:40 Blood Culture Gram Stain - Preliminary Blood Assessment and Plan Plan: 1. Acute kidney injury most likely secondary to poor oral intake and diuretics. Lasix and Aldactone dosing will be decreased. Monitor renal function daily. Metformin and glipizide discontinued. 2. Possible acute septic arthritis of the left knee. Consult with Dr. Castelan. Plan for I&D today. Consult with Dr. Pierce appreciated. Continue Unasyn and vancomycin. 3. History of autoimmune hepatitis has been on Imuran and oral prednisone. Consult with GI appreciated. 4. Diabetes mellitus type 2. Metformin and glipizide placed on hold. Levemir 10 units daily will be added and NovoLog scale and Humalog scale before meals and at bedtime. 5. Hypercoagulopathy most likely secondary to autoimmune hepatitis. Monitor INR daily. Patient has not been on Coumadin. 6. Electrolyte abnormalities with hyponatremia, hyperkalemia, hypomagnesemia. Continue to monitor. 7. History of DVT, many years ago with no evidence of recurrence.6. Varicose veins, stable. 8. Gastrointestinal prophylaxis. Pepcid. 9. Stage II decubitus ulcer on the coccyx, present on admission. [facility]. 10. DVT prophylaxis. SADIA nolasco and SCDs. No heparin due to INR of 2. Discharge plan: To be determined. PT and OT added Impression and plan of care have been directed as dictated by the signing physician. Huong Bauer nurse practitioner acting as scribe for signing physician.
[2018-03-23] MEDS ORDERED: IV FLUID CONTINUATION 1,000 ML IV ONE (15:11)
[2018-03-23] MEDS ORDERED: fentaNYL (PF) 50 MCG/ML 2 ML AMP ONE (16:26)
[2018-03-23] MEDS ORDERED: LIDOCAINE 1% INJ 10MG/ML (20 ML MDV) ONE (16:26)
[2018-03-23] MEDS ORDERED: PROPOFOL 10 MG/ML 20 ML VIAL IV ONE (16:26)
[2018-03-23] MEDS ORDERED: PHENYLEPHRINE-0.9% NACL SYG 1 MG/10 ML SYRINGE ONE (16:26)
[2018-03-23] MEDS ORDERED: LACTATED RINGERS 1,000 ML IV ONE (17:04)
[2018-03-23] MEDS ORDERED: ceFAZolin 3,000 MG in SODIUM CHLORIDE 0.9% IRRIGATIO 3,000 ML IRRIGATION ONE (17:09)
[2018-03-23 20:06] LABS: Glucose,Whole Blood 210 mg/dL (75-99)
[2018-03-23 20:33] LABS: Glucose,Whole Blood 258 mg/dL (75-99)
[2018-03-23] MEDS: MAGNESIUM OXIDE 400 MG TAB PO SCH (22:49)
--- NOTE | 2018-03-24 01:01 | OP ---
OPERATIVE REPORT DATE OF PROCEDURE: 03/23/2018. PREOPERATIVE DIAGNOSIS: Left knee infected total knee arthroplasty. POSTOPERATIVE DIAGNOSIS: Left knee infected total knee arthroplasty. PROCEDURE: 1. Arthroscopic debridement, left knee. 2. Left knee arthroscopic three-compartment partial synovectomy. SURGEON: Jet Castelan MD. PHYSICAL THERAPY ASSISTANT INSTRUCTOR: James CRAWFORD. ANESTHESIA: General endotracheal. ESTIMATED BLOOD LOSS: Minimal. TOURNIQUET: None. DRAINS: None. COMPLICATIONS: None apparent. DISPOSITION: Postanesthesia care unit. INDICATIONS: James is a very pleasant 78-year-old male who underwent a left total knee arthroplasty several years ago at an outside facility. They cannot recall who their arthroplasty surgeon was. James does have advanced liver failure. He has autoimmune hepatitis. He subsequently has developed swelling and infection in the left knee over the last month or so. We had a long discussion with James and his family with regard to treatment options. He is a very poor surgical candidate for open debridement and explant of his knee arthroplasty. I did talk to Infectious Disease. The strategy was to go forward with an arthroscopic debridement with chronic suppressive antibiotics given James's frail health status. This was discussed with his family and they agreed to move forward with this strategy. The risks of procedure were discussed with him in his family in detail. These risks include, but are not limited to risk of continued infection, nerve damage, bleeding, pain, and a small risk of deep vein thrombosis which could lead to fatal pulmonary embolism. Certainly this was explained to James and his family, that this will not eradicate his infection. This is a temporizing measure and certainly not definitive, but is reasonable given his frail medical status. All of their questions were answered to their satisfaction. Appropriate informed consent was obtained. DESCRIPTION OF PROCEDURE: The patient was identified in the preop holding area. Surgical site was marked by both the patient and myself. He was then transferred to the operative suite. He was placed supine on the operative table. General anesthetic was administered and dosed per the anesthesia without apparent complication. The patient's left lower extremity was then prepped and draped in usual sterile fashion. Standard surgical pause undertaken to ensure that we were operating the correct site and that appropriate preoperative antibiotics had been given. All staff in the room in agreement were in agreement and we proceeded. The knee was then insufflated with 60 mL sterile saline solution. This was done to gradually distend the joint. A standard inferolateral portal was then made. A 30 degree arthroscope was introduced in the suprapatellar pouch. The arthroscopic pump pressure was set at 60 mmHg and maintained at that level throughout the entire case. Next utilizing an 18-gauge spinal needle and topical localized placement, the inferomedial portal was made under direct visualization. I then did an arthroscopic lavage. Purulent material was certainly expressed and debrided. All exudate that was visible was debrided with the synovial shaver. I then performed a partial synovectomy of the anterior, medial and lateral compartments of the knee. This was limited as I was unable to get to the posterior aspects of both medial lateral compartments given his prosthesis, but we did the best that we could. In total, we ran 6 L of sterile saline solution. The last 3 L had Ancef added. After the last bit of fluid was run through the knee, the arthroscopic equipment was removed. I did place a drain intra- articular through the inferolateral portal. This was a fenestrated drain and hooked up to a pump. I then placed a stitch in both the medial and lateral portals, this was 3-0 nylon interrupted suture. A sterile compressive dressing was then applied. All sponge and needle counts were deemed correct prior to closure. The patient tolerated the procedure without apparent complication. The tourniquet was not utilized throughout the entire procedure. MMODL / IJN: [id number] /
[2018-03-24] MEDS: AMPICILLIN-SULBACTAM 3 GM in SODIUM CHLORIDE 0.9% 100 ML IVPB SCH ×4 (01:04→17:56)
[2018-03-24] MEDS: HYDROcodone/APAP 5-325MG 1 EACH TAB PO PRN ×2 (01:04→08:21)
[2018-03-24] MEDS: INSULIN ASPART 100 UNIT/ML 1 ML 10 ML VIAL SQ SCH ×5 (03:00→21:42)
[2018-03-24 03:10] LABS: Glucose,Whole Blood 227 mg/dL (75-99)
[2018-03-24 06:59] LABS: Glucose,Whole Blood 250 mg/dL (75-99)
[2018-03-24 08:10] LABS: Albumin 1.7 g/dL (3.5-5.0); Calcium 7.7 mg/dL (8.4-10.2); Potassium 5.1 mmol/L (3.5-5.1); Total Bilirubin 3.2 mg/dL (0.2-1.3)
[2018-03-24] MEDS: INSULIN DETEMIR 100 UNIT/ML 10 ML VIAL SQ SCH (08:19)
[2018-03-24] MEDS: VANCOMYCIN 1,500 MG in SODIUM CHLORIDE 0.9% 250 ML IVPB SCH (08:19)
[2018-03-24] MEDS: BACLOFEN 10 MG TAB PO SCH ×2 (08:20→21:35)
[2018-03-24] MEDS: azaTHIOprine 50 MG TAB PO SCH ×2 (08:20→21:34)
[2018-03-24] MEDS: FAMOTIDINE 20 MG TAB PO SCH ×2 (08:21→21:35)
[2018-03-24] MEDS: SPIRONOLACTONE 25 MG TAB PO SCH (08:22)
[2018-03-24] MEDS: predniSONE 20 MG TAB PO SCH (08:22)
[2018-03-24] MEDS: LORATADINE 10 MG TAB PO SCH (08:22)
[2018-03-24] MEDS: FUROSEMIDE 20 MG TAB PO SCH (08:22)
[2018-03-24] MEDS: MULTIVITAMINS, THERA 1 EACH TAB PO SCH (08:22)
[2018-03-24] MEDS: FERROUS SULFATE 325 MG TAB PO SCH (08:22)
[2018-03-24] MEDS: TAMSULOSIN 0.4 MG CAP.ER.24H PO SCH ×2 (08:22→21:34)
[2018-03-24 08:35] LABS: Prothrombin Time 18.2 sec (9.0-12.0)
[2018-03-24] MEDS: INSULIN DETEMIR 100 UNIT/ML 10 ML VIAL SQ ONE ×2 (08:40→09:36)
[2018-03-24 08:42] LABS: Anisocytosis Slight; Basophils % (A) 0 %; Eosinophils # (A) 0.1 k/uL (0-0.7); Eosinophils % (A) 1 %; HCT 30.9 % (39.0-53.0); HGB 9.9 gm/dL (13.0-17.5); Hypochromasia Moderate; Lymphocytes # (A) 0.2 k/uL (1.0-4.8); Lymphocytes % (A) 4 %; MCHC 32.1 g/dL (31.0-37.0); Macrocytosis Marked; Mean Platelet Volume 8.3; Monocytes # (A) 0.3 k/uL (0-1.0); Monocytes % (A) 5 %; Neutrophils # (A) 5.4 k/uL (1.3-7.7); Neutrophils % (A) 88 %; RBC 2.28 m/uL (4.30-5.90); RDW 18.6 % (11.5-15.5); WBC 6.1 k/uL (3.8-10.6)
[2018-03-24 08:44] LABS: MCH 43.4 pg (25.0-35.0); MCV 135.1 fL (80.0-100.0)
[2018-03-24 08:45] LABS: Platelet Count 51 k/uL (150-450)
[2018-03-24 09:07] LABS: Poikilocytosis (M) Present
[2018-03-24 09:08] LABS: RBC Fragments Present; Target Cells Present
[2018-03-24] MEDS ORDERED: INSULIN DETEMIR 100 UNIT/ML 10 ML VIAL SQ STA (09:33)
--- NOTE | 2018-03-24 11:27 | P.PN ---
Subjective Progress Note Date: 03/24/18 Principal diagnosis: status post I&D left knee patient seen at bedside this morning. Status post arthroscopic I&D of left knee where he had a previous total knee arthroplasty approximately 12 years ago done elsewhere.he has some pain at the surgical site as expected but is improved versus preoperative. He has no new complaints. Objective - Vital Signs Vital signs: Vital Signs Temp 98.6 F 03/24/18 07:53 Pulse 82 03/24/18 07:53 Resp 17 03/24/18 07:57 BP 112/70 03/24/18 07:53 Pulse Ox 94 L 03/24/18 07:56 Intake & Output 03/23/18 03/24/18 03/24/18 18:59 06:59 18:59 Intake Total 901 100 Output Total 310 340 Balance 591 -240 Weight 81.828 kg Intake: IV 901 Intake, IV Titration 100 Amount Ampicillin-Sulbactam 3 gm 100 In Sodium Chloride 0.9% 100 ml @ 200 mls/hr IVPB Q6HR [facility] Rx#:[id number] Output: Drainage 40 Left Knee 40 Urine 300 300 Estimated Blood Loss 10 Other: Voiding Method Urinal Urinal Urinal # Voids 1 - Exam inspection of the left lower extremity shows bandage in place as well as Hemovac. There is no evidence of bleeding or drainage through the bandage. There is mild amount of bleeding but no evidence of purulence in the Hemovac. Neurovascular status is grossly intact distally with motor and sensation throughout the foot and toes. 1+ dorsal pedis pulses present. He has chronic peripheral edema.calf is soft nontender. - Constitutional General appearance: Present: no acute distress - Labs CBC & Chem 7: 03/24/18 07:33 03/24/18 07:33 Labs: Abnormal Lab Results - Last 24 Hours (Table) 03/22/18 03/23/18 03/23/18 Range/Units 11:00 11:29 18:12 RBC (4.30-5.90) m/uL Hgb (13.0-17.5) gm/dL Hct (39.0-53.0) % MCV (80.0-100.0) fL MCH (25.0-35.0) pg RDW (11.5-15.5) % Plt Count (150-450) k/uL Lymphocytes # (1.0-4.8) k/uL PT (9.0-12.0) sec INR (<1.2) Sodium (137-145) mmol/L Carbon Dioxide (22-30) mmol/L BUN (9-20) mg/dL Creatinine (0.66-1.25) mg/dL Glucose (74-99) mg/dL POC Glucose (mg/dL) 235 H 210 H (75-99) mg/dL Hemoglobin A1c 7.3 H (4.0-6.0) % Calcium (8.4-10.2) mg/dL Total Bilirubin (0.2-1.3) mg/dL Total Protein (6.3-8.2) g/dL Albumin (3.5-5.0) g/dL 03/23/18 03/24/18 03/24/18 Range/Units 20:31 02:56 06:47 RBC (4.30-5.90) m/uL Hgb (13.0-17.5) gm/dL Hct (39.0-53.0) % MCV (80.0-100.0) fL MCH (25.0-35.0) pg RDW (11.5-15.5) % Plt Count (150-450) k/uL Lymphocytes # (1.0-4.8) k/uL PT (9.0-12.0) sec INR (<1.2) Sodium (137-145) mmol/L Carbon Dioxide (22-30) mmol/L BUN (9-20) mg/dL Creatinine (0.66-1.25) mg/dL Glucose (74-99) mg/dL POC Glucose (mg/dL) 258 H 227 H 250 H (75-99) mg/dL Hemoglobin A1c (4.0-6.0) % Calcium (8.4-10.2) mg/dL Total Bilirubin (0.2-1.3) mg/dL Total Protein (6.3-8.2) g/dL Albumin (3.5-5.0) g/dL 03/24/18 03/24/18 03/24/18 Range/Units 07:33 07:33 07:33 RBC 2.28 L (4.30-5.90) m/uL Hgb 9.9 L (13.0-17.5) gm/dL Hct 30.9 L (39.0-53.0) % MCV 135.1 H D (80.0-100.0) fL MCH 43.4 H (25.0-35.0) pg RDW 18.6 H (11.5-15.5) % Plt Count 51 L (150-450) k/uL Lymphocytes # 0.2 L (1.0-4.8) k/uL PT 18.2 H (9.0-12.0) sec INR 2.0 H (<1.2) Sodium 127 L (137-145) mmol/L Carbon Dioxide 16 L (22-30) mmol/L BUN 59 H (9-20) mg/dL Creatinine 1.34 H (0.66-1.25) mg/dL Glucose 236 H (74-99) mg/dL POC Glucose (mg/dL) (75-99) mg/dL Hemoglobin A1c (4.0-6.0) % Calcium 7.7 L (8.4-10.2) mg/dL Total Bilirubin 3.2 H (0.2-1.3) mg/dL Total Protein 6.0 L (6.3-8.2) g/dL Albumin 1.7 L (3.5-5.0) g/dL Microbiology - Last 24 Hours (Table) 03/21/18 12:40 Blood Culture Gram Stain - Preliminary Blood Blood Culture - Preliminary Anaerobic Gm Positive Bacill 03/22/18 21:14 Blood Culture - Preliminary Blood No Growth after 24 hours 03/22/18 20:48 Blood Culture - Preliminary Blood No Growth after 24 hours 03/22/18 09:47 Gram Stain - Preliminary Knee - Left Body Fluid Culture - Preliminary Assessment and Plan (1) Infection of total left knee replacement Narrative/Plan: Continue wound care, pain management and elevation. We'll continue to monitor output of the Hemovac. Request DVT prophylaxis per internal medicine. He may be weightbearing as tolerated and work with therapy. Antibiotics per infectious disease. We'll continue to follow. Current Visit: Yes Status: Acute Code(s): T84.54XA - INFECT/INFLM REACTION DUE TO INTERNAL LEFT KNEE PROSTH, INIT; Z96.652 - PRESENCE OF LEFT ARTIFICIAL KNEE JOINT SNOMED Code(s): 835700498 Time with Patient: Less than 30
[2018-03-24] MEDS: CYANOCOBALAMIN 500 MCG TAB PO SCH (11:30)
[2018-03-24] MEDS: FOLIC ACID 1 MG TAB PO SCH (11:30)
[2018-03-24 12:13] LABS: Glucose,Whole Blood 325 mg/dL (75-99)
--- NOTE | 2018-03-24 13:53 | P.PN ---
Subjective Progress Note Date: 03/24/18 This is a 78-year-old male patient of Dr. Donaldson with past medical history for diabetes mellitus type 2 steroid induced, DVT many years ago on 2 episodes, autoimmune hepatitis on Imuran, ulcerative colitis status post ileostomy originally in 1972 and revision in 1998 currently on azathioprine, kidney stones, varicose veins. Patient recently seen by Dr. Lopez for over a kidney stone and due to edema was sent into the office and has been seen several times by MINA Adams, with medication changes made by increasing Lasix and adding Zaroxolyn and Aldactone. He has ongoing problems with left- sided knee pain and fluid retention. He states he was unable to move his left knee and hip and that was recently came in to the hospital for evaluation. He denies having any fever, no nausea or vomiting. He has had decreased appetite. He has an ileostomy that has liquid output which is normal for him. He denies having any falls. Patient came into [facility] emergency center for evaluation. Chest x-ray showed no acute process. Knee x- ray showed diffuse subcutaneous soft tissue swelling with no acute fracture dislocation left knee arthroplasty or [place] bone. His white count was normal at 5.9, hemoglobin 11.1, platelet count 61, INR 2.0. Sodium 128, potassium 5.5 , CO2 19, BUN 16 creatinine 1.53 blood sugars have been elevated at 200s to 315. Magnesium was 1.4, total bilirubin 4.3, AST 69, ALT 76, alkaline phosphatase 121. Troponin was negative. C-reactive protein 47.3. Albumin 2.3 , proBNP 1630. Urinalysis was clear with moderate blood, small leukoesterase. There was concern for septic arthroplasty left knee and electrolyte abnormalities and acute kidney injury and patient was admitted to the Medr floor consults were requested with Dr. Pierce and Dr. Castelan. Subsequently, patient is been seen by Dr. Castelan and aspiration was done with concern for infection and plan is for I&D tomorrow in the OR. Consult with GI for autoimmune hepatitis. 03/23: Patient complains of feeling uncomfortable secondary to back pain from lying in bed. He is complaining of spasms across his back. He has slight decreased swelling to the left knee today. Blood culture showing gram-positive bacilli. He is scheduled for I&D today with Dr. Castelan. Patient has been seen by Dr. Pierce and he has added Unasyn to cover for Listeria and continued vancomycin. Repeat lab work today shows a hemoglobin 10.4, platelet count 47, INR 2, sodium 128, BUN 56 and creatinine 1.3. Blood sugars are running in the 200s. Patient received only half of his Levemir apparently in anticipation of nothing by mouth status. Total bilirubin 2.3, AST, ALT and alkaline phosphatase are within normal range. Albumin is 1.7. The patient has been seen by GI with recommendations continue Lasix and Aldactone, monitor liver enzymes, low sodium diet. 03/24: Patient underwent I&D yesterday with Dr. Castelan that did find purulent material was expressed and the bright added and drain was placed. Patient has been afebrile and vital signs and stable. Pulse ox is 94-98% on 2 L nasal cannula. Blood sugars are running in the 200s and Levemir will be increased to 15 units daily. But noted the patient's daughter has been refusing his NovoLog scale. Sodium is 127, BUN 59 creatinine 1.34. Updated patient's grandson at the bedside and his daughter over the phone regarding current condition, plan of care. BUN is 15 and creatinine 1.3. Sodium 127. Consult with nephrology added. Lasix and Aldactone will be resumed back on previous dose. Vitamin B12 and folic acid added. PICC line has been ordered. Patient's family is planning on [facility] at the time of discharge which most likely will occur on Friday. Review of Systems All systems: negative Constitutional: Reports fatigue, Reports poor appetite, Reports weakness, Denies chills, Denies fever Eyes: denies blurred vision, denies pain Ears, nose, mouth and throat: Denies dysphagia, Denies headache, Denies sore throat, Denies vertigo Cardiovascular: Reports leg edema, Denies chest pain, Denies shortness of breath , Denies syncope Respiratory: Denies cough, Denies cough with sputum, Denies excessive sputum, Denies hemoptysis, Denies wheezing Gastrointestinal: Reports loss of appetite, Denies abdominal pain, Denies diarrhea, Denies melena, Denies nausea, Denies vomiting Genitourinary: Denies dysuria Musculoskeletal: Reports gait dysfunction, Denies myalgias Musculoskeletal: left: knee pain, knee swelling, complaining of low back pain Integumentary: Reports wounds, Denies pruritus, Denies rash Neurological: Denies change in mentation, Denies confusion, Denies numbness, Denies weakness Psychiatric: Denies anxiety, Denies depression Endocrine: Denies fatigue, Denies weight change Objective - Vital Signs Vital signs: Vital Signs Temp 98.6 F 03/24/18 07:53 Pulse 82 03/24/18 07:53 Resp 17 03/24/18 07:57 BP 112/70 03/24/18 07:53 Pulse Ox 94 L 03/24/18 07:56 Intake & Output 03/23/18 03/24/18 03/24/18 18:59 06:59 18:59 Intake Total 901 100 Output Total 310 340 Balance 591 -240 Weight 81.828 kg Intake: IV 901 Intake, IV Titration 100 Amount Ampicillin-Sulbactam 3 gm 100 In Sodium Chloride 0.9% 100 ml @ 200 mls/hr IVPB Q6HR [facility] Rx#:[id number] Output: Drainage 40 Left Knee 40 Urine 300 300 Estimated Blood Loss 10 Other: Voiding Method Urinal Urinal Urinal # Voids 1 - Exam Gen: This is an 78-year-old male. He is sitting up in recliner and appears to be comfortable. Grandson is at the bedside.. HEENT: Head is atraumatic, normocephalic. Pupils equal, round. Sclerae is anicteric. NECK: Supple. No JVD. No lymphadenopathy. No thyromegaly. LUNGS: Clear to auscultation. No wheezes or rhonchi. No intercostal retractions. HEART: Regular rate and rhythm. No murmur. ABDOMEN: Soft. Bowel sounds are present. No masses. No tenderness. Ileostomy with watery type stools. EXTREMITIES: 2+ pedal edema bilaterally. Edema to the left knee with tenderness. NEUROLOGICAL: Patient is awake, alert and oriented x3. Cranial nerves 2 through 12 are grossly intact. - Labs CBC & Chem 7: 03/24/18 07:33 03/24/18 07:33 Labs: Abnormal Lab Results - Last 24 Hours (Table) 03/22/18 03/23/18 03/23/18 Range/Units 11:00 08:29 09:41 RBC 2.41 L (4.30-5.90) m/uL Hgb 10.4 L (13.0-17.5) gm/dL Hct 30.9 L (39.0-53.0) % MCV 128.0 H (80.0-100.0) fL MCH 43.3 H (25.0-35.0) pg RDW 19.3 H (11.5-15.5) % Plt Count 47 L (150-450) k/uL Lymphocytes # 0.3 L (1.0-4.8) k/uL PT (9.0-12.0) sec INR (<1.2) Sodium (137-145) mmol/L Carbon Dioxide (22-30) mmol/L BUN (9-20) mg/dL Creatinine (0.66-1.25) mg/dL Glucose (74-99) mg/dL POC Glucose (mg/dL) 269 H (75-99) mg/dL Hemoglobin A1c 7.3 H (4.0-6.0) % Calcium (8.4-10.2) mg/dL Total Bilirubin (0.2-1.3) mg/dL Total Protein (6.3-8.2) g/dL Albumin (3.5-5.0) g/dL 03/23/18 03/23/18 03/23/18 Range/Units 09:41 09:41 11:29 RBC (4.30-5.90) m/uL Hgb (13.0-17.5) gm/dL Hct (39.0-53.0) % MCV (80.0-100.0) fL MCH (25.0-35.0) pg RDW (11.5-15.5) % Plt Count (150-450) k/uL Lymphocytes # (1.0-4.8) k/uL PT 18.2 H (9.0-12.0) sec INR 2.0 H (<1.2) Sodium 128 L (137-145) mmol/L Carbon Dioxide 19 L (22-30) mmol/L BUN 56 H (9-20) mg/dL Creatinine 1.30 H (0.66-1.25) mg/dL Glucose 249 H (74-99) mg/dL POC Glucose (mg/dL) 235 H (75-99) mg/dL Hemoglobin A1c (4.0-6.0) % Calcium 7.7 L (8.4-10.2) mg/dL Total Bilirubin 2.3 H (0.2-1.3) mg/dL Total Protein 5.9 L (6.3-8.2) g/dL Albumin 1.7 L (3.5-5.0) g/dL 03/23/18 03/23/18 03/24/18 Range/Units 18:12 20:31 02:56 RBC (4.30-5.90) m/uL Hgb (13.0-17.5) gm/dL Hct (39.0-53.0) % MCV (80.0-100.0) fL MCH (25.0-35.0) pg RDW (11.5-15.5) % Plt Count (150-450) k/uL Lymphocytes # (1.0-4.8) k/uL PT (9.0-12.0) sec INR (<1.2) Sodium (137-145) mmol/L Carbon Dioxide (22-30) mmol/L BUN (9-20) mg/dL Creatinine (0.66-1.25) mg/dL Glucose (74-99) mg/dL POC Glucose (mg/dL) 210 H 258 H 227 H (75-99) mg/dL Hemoglobin A1c (4.0-6.0) % Calcium (8.4-10.2) mg/dL Total Bilirubin (0.2-1.3) mg/dL Total Protein (6.3-8.2) g/dL Albumin (3.5-5.0) g/dL 03/24/18 03/24/18 Range/Units 06:47 07:33 RBC (4.30-5.90) m/uL Hgb (13.0-17.5) gm/dL Hct (39.0-53.0) % MCV (80.0-100.0) fL MCH (25.0-35.0) pg RDW (11.5-15.5) % Plt Count (150-450) k/uL Lymphocytes # (1.0-4.8) k/uL PT (9.0-12.0) sec INR (<1.2) Sodium 127 L (137-145) mmol/L Carbon Dioxide 16 L (22-30) mmol/L BUN 59 H (9-20) mg/dL Creatinine 1.34 H (0.66-1.25) mg/dL Glucose 236 H (74-99) mg/dL POC Glucose (mg/dL) 250 H (75-99) mg/dL Hemoglobin A1c (4.0-6.0) % Calcium 7.7 L (8.4-10.2) mg/dL Total Bilirubin 3.2 H (0.2-1.3) mg/dL Total Protein 6.0 L (6.3-8.2) g/dL Albumin 1.7 L (3.5-5.0) g/dL Microbiology - Last 24 Hours (Table) 03/22/18 21:14 Blood Culture - Preliminary Blood No Growth after 24 hours 03/22/18 20:48 Blood Culture - Preliminary Blood No Growth after 24 hours 03/22/18 09:47 Gram Stain - Preliminary Knee - Left Body Fluid Culture - Preliminary Assessment and Plan Plan: 1. Acute kidney injury most likely secondary to poor oral intake and diuretics. Lasix and Aldactone dosing will be decreased. Monitor renal function daily. Metformin and glipizide discontinued. 2. Possible acute septic arthritis of the left knee. Consult with Dr. Castelan appreciated. Status post I&D. Consult with Dr. Pierce appreciated. Continue Unasyn and vancomycin. PICC line ordered. 3. History of autoimmune hepatitis has been on Imuran and oral prednisone. Consult with GI appreciated. 4. Diabetes mellitus type 2, uncontrolled with hyperglycemia. Metformin and glipizide placed on hold. Increase Levemir to 15 units daily and NovoLog scale and Humalog scale before meals and at bedtime. Hemoglobin A1c is 7.3. 5. Hypercoagulopathy most likely secondary to autoimmune hepatitis. Monitor INR daily. Patient has not been on Coumadin. 6. Electrolyte abnormalities with hyponatremia, hyperkalemia, hypomagnesemia. Continue to monitor. 7. History of DVT, many years ago with no evidence of recurrence.6. Varicose veins, stable. 8. Gastrointestinal prophylaxis. Pepcid. 9. Stage II decubitus ulcer on the coccyx, present on admission. [facility] local wound care. 10. DVT prophylaxis. SADIA hose and SCDs. No heparin due to INR of 2. Discharge plan: [facility] on Friday Impression and plan of care have been directed as dictated by the signing physician. Huong Bauer nurse practitioner acting as scribe for signing physician.
[2018-03-24] MEDS: FUROSEMIDE 40 MG TAB PO SCH (16:04)
[2018-03-24 17:20] LABS: Glucose,Whole Blood 325 mg/dL (75-99)
[2018-03-24] MEDS ORDERED: FUROSEMIDE 10 MG/ML 2 ML VIAL IV ONE (19:09)
[2018-03-24 21:13] LABS: Glucose,Whole Blood 347 mg/dL (75-99)
[2018-03-24] MEDS: MAGNESIUM OXIDE 400 MG TAB PO SCH (21:34)
--- NOTE | 2018-03-24 23:00 | CONS ---
CONSULTATION REASON FOR CONSULT: Hyponatremia and acute kidney injury. HISTORY OF PRESENT ILLNESS: Patient is an 78-year-old male with history of autoimmune hepatitis, maintained on . He was admitted to the hospital on 03/21/2018, with complaints of left knee pain. He was found to have septic arthritis with the synovial fluid culture growing Clostridium . The patient is been followed by Orthopedics. He is maintained on antibiotics in the form of Unasyn. The serum sodium has been at 128. and this morning it was 127. The patient has significant lower extremity edema. His diuretics were decreased recently secondary to elevated creatinine. Serum creatinine was 1.5 on 03/21/2018. It is down to 1.34 today. Previous creatinine was 1.0 on 12/24/2017. Review of previous labs shows previous sodium of 139 and 140 on 12/24/2017. The patient's blood pressure has been on the lower side with systolic around 108-101 mmHg. He denies any nausea, vomiting or diarrhea, although orally intake is poor. The patient denies any significant shortness of breath. PAST MEDICAL HISTORY: Autoimmune hepatitis with some degree of liver cirrhosis, a history of ulcerative colitis currently with an ileostomy, type 2 diabetes, history of DVT, history of nephrolithiasis, osteoarthritis. PAST SURGICAL HISTORY: Ileostomy after a bowel perforation, a total left knee arthroplasty, EGD, surgery for kidney stones. SOCIAL HISTORY: Negative for smoking, drug abuse or alcohol abuse. The patient had been fairly active and golfing prior to this admission. MEDICATIONS: Medications at home included baclofen, Claritin, magnesium, tamsulosin, , vitamin D2, Lasix, spironolactone, prednisone, Glipizide. ALLERGIES: INCLUDE IV CONTRAST, DEMEROL, MORPHINE. REVIEW OF SYSTEMS: As per HPI. Other systems negative. EXAMINATION: Patient is comfortable, awake, alert, oriented x3, not in any acute distress. Blood pressure this morning was 112/70, heart rate of 91 per minute. Patient is afebrile. Examination of the heart S1, S2. Examination lungs bilateral breath sounds are heard. Abdomen is soft, nontender. Examination lower extremities shows edema 2+ bilaterally with some weeping of the skin noted as well. ANSWERER exam is grossly intact. Left knee has a drain in place. LABS SHOW: Sodium 127, potassium 5.1, chloride 106, CO2 is 16, BUN 59, serum creatinine 1.34, hemoglobin 9.9 g/dL, platelet count of 51,000. ASSESSMENT: 1. Hyponatremia, appears to be hypervolemic with evidence of edema bilateral lower extremities. We will resume loop diuretics. Currently patient is maintained on oral Lasix. I will give him a dose of IV Lasix as well. He is also encouraged to increase his oral protein intake. Random urine sodium and urine osmolality will be ordered. However, it will not be accurate given the use of loop diuretics. Blood pressure is on the lower side. A serum cortisol will also be ordered. 2. Autoimmune hepatitis with likely underlying liver cirrhosis and portal hypertension. Maintained on and prednisone. 3. Acute kidney injury, most likely prerenal associated with hypoperfusion currently improved. Patient is not on any nephrotoxic medications. 4. Septic arthritis, status post arthrocentesis and currently with a drain, maintained on Unasyn. Fluid culture grew Clostridium . 5. History of ulcerative colitis. 6. Status post ileostomy many years ago after bowel resection. 7. Type 2 diabetes, maintained on metformin and glipizide as outpatient, currently on hold and maintained on sliding scale. 8. History of deep vein thrombosis. 9. Metabolic acidosis, non gap secondary to renal failure. PLAN: Continue loop diuretics. Check random urine sodium and urine osmolality. Check random cortisol level. IV Lasix x1. Repeat labs in a.m. and encourage increased oral protein intake. Monitor vancomycin levels closely given the renal impairment. Thank you for this consultation. We will continue to follow the patient with you during his hospitalization. MMODL / IJN: [id number] /
[2018-03-25] MEDS: HYDROcodone/APAP 5-325MG 1 EACH TAB PO PRN ×3 (00:20→16:20)
[2018-03-25] MEDS: AMPICILLIN-SULBACTAM 3 GM in SODIUM CHLORIDE 0.9% 100 ML IVPB SCH ×5 (00:21→23:11)
[2018-03-25] MEDS: HYDROmorphone 1 MG/ML 1 ML SYRINGE IVP PRN (01:11)
[2018-03-25 02:13] LABS: Glucose,Whole Blood 315 mg/dL (75-99)
[2018-03-25] MEDS: INSULIN ASPART 100 UNIT/ML 1 ML 10 ML VIAL SQ SCH ×7 (02:43→21:53)
[2018-03-25 07:00] LABS: Glucose,Whole Blood 282 mg/dL (75-99)
[2018-03-25] MEDS ORDERED: VANCOMYCIN TROUGH DUE 1 EACH MISC MISCELLANE ONE (08:00)
[2018-03-25] MEDS: VANCOMYCIN 1,500 MG in SODIUM CHLORIDE 0.9% 250 ML IVPB SCH (08:10)
[2018-03-25] MEDS: BACLOFEN 10 MG TAB PO SCH ×2 (08:12→21:52)
[2018-03-25] MEDS: LORATADINE 10 MG TAB PO SCH (08:12)
[2018-03-25] MEDS: SPIRONOLACTONE 25 MG TAB PO SCH (08:12)
[2018-03-25] MEDS: TAMSULOSIN 0.4 MG CAP.ER.24H PO SCH ×2 (08:12→21:52)
[2018-03-25] MEDS: FERROUS SULFATE 325 MG TAB PO SCH (08:12)
[2018-03-25] MEDS: azaTHIOprine 50 MG TAB PO SCH ×2 (08:13→21:52)
[2018-03-25] MEDS: predniSONE 20 MG TAB PO SCH (08:13)
[2018-03-25] MEDS: FUROSEMIDE 40 MG TAB PO SCH ×2 (08:13→16:17)
[2018-03-25] MEDS: FAMOTIDINE 20 MG TAB PO SCH ×2 (08:13→21:52)
[2018-03-25 09:05] LABS: Anisocytosis Slight; Basophils % (A) 0 %; Eosinophils # (A) 0.1 k/uL (0-0.7); Eosinophils % (A) 1 %; HCT 32.5 % (39.0-53.0); HGB 10.6 gm/dL (13.0-17.5); Hypochromasia Slight; INR 1.8 (<1.2); Lymphocytes # (A) 0.3 k/uL (1.0-4.8); Lymphocytes % (A) 7 %; MCHC 32.7 g/dL (31.0-37.0); MCV 131.9 fL (80.0-100.0); Macrocytosis Marked; Mean Platelet Volume 7.8; Monocytes # (A) 0.2 k/uL (0-1.0); Monocytes % (A) 4 %; Neutrophils # (A) 4.3 k/uL (1.3-7.7); Neutrophils % (A) 87 %; Prothrombin Time 16.8 sec (9.0-12.0); RBC 2.46 m/uL (4.30-5.90); RDW 18.6 % (11.5-15.5)
[2018-03-25] MEDS: INSULIN DETEMIR 100 UNIT/ML 10 ML VIAL SQ SCH (09:10)
[2018-03-25 09:12] LABS: MCH 43.1 pg (25.0-35.0); Platelet Count 49 k/uL (150-450)
[2018-03-25 09:16] LABS: Albumin 1.9 g/dL (3.5-5.0); Calcium 7.9 mg/dL (8.4-10.2); Potassium 4.9 mmol/L (3.5-5.1); Total Bilirubin 2.9 mg/dL (0.2-1.3); Total Protein 6.4 g/dL (6.3-8.2)
--- NOTE | 2018-03-25 09:40 | P.PN ---
Subjective Progress Note Date: 03/25/18 Principal diagnosis: autoimmune hepatitis 78-year-old gentleman patient of Dr. Davis with a history of autoimmune hepatitis admitted with infection left knee. Status post left knee debridement partial synovectomy. Transaminases AP within normal limits. Total bili improved 2.9. Objective - Vital Signs Vital signs: Vital Signs Temp 97.5 F L 03/25/18 07:17 Pulse 86 03/25/18 07:17 Resp 16 03/25/18 07:17 BP 112/66 03/25/18 07:17 Pulse Ox 99 03/25/18 07:17 Intake & Output 03/24/18 03/25/18 03/25/18 18:59 06:59 18:59 Intake Total 120 100 Output Total 145 600 Balance -25 -500 Intake: Intake, IV Titration 100 Amount Ampicillin-Sulbactam 3 gm 100 In Sodium Chloride 0.9% 100 ml @ 200 mls/hr IVPB Q6HR [facility] Rx#:[id number] Oral 120 Output: Drainage 20 Left Knee 20 Urine 125 600 Other: Voiding Method Urinal # Voids 1 - Exam General appearance: The patient is alert, oriented, in no acute distress. HET: Head is normocephalic and atraumatic. Pupils are equal and reactive. Oropharynx is clear without lesions. Neck: Supple without lymphadenopathy. Trachea midline. Heart: S1 S2. Regular rate and rhythm. Lungs: No crackles or wheezes are heard. Abdomen: Soft, nontender, nondistended with bowel sounds. No peritoneal signs. No palpable organomegaly or masses. - Labs CBC & Chem 7: 03/25/18 08:12 03/25/18 08:12 Labs: Abnormal Lab Results - Last 24 Hours (Table) 03/24/18 03/24/18 03/24/18 Range/Units 12:01 17:08 21:01 RBC (4.30-5.90) m/uL Hgb (13.0-17.5) gm/dL Hct (39.0-53.0) % MCV (80.0-100.0) fL MCH (25.0-35.0) pg RDW (11.5-15.5) % Plt Count (150-450) k/uL PT (9.0-12.0) sec INR (<1.2) Sodium (137-145) mmol/L Carbon Dioxide (22-30) mmol/L BUN (9-20) mg/dL Creatinine (0.66-1.25) mg/dL Glucose (74-99) mg/dL POC Glucose (mg/dL) 325 H 325 H 347 H (75-99) mg/dL Calcium (8.4-10.2) mg/dL Total Bilirubin (0.2-1.3) mg/dL Albumin (3.5-5.0) g/dL 03/25/18 03/25/18 03/25/18 Range/Units 02:00 06:58 08:12 RBC 2.46 L (4.30-5.90) m/uL Hgb 10.6 L (13.0-17.5) gm/dL Hct 32.5 L (39.0-53.0) % MCV 131.9 H (80.0-100.0) fL MCH 43.1 H (25.0-35.0) pg RDW 18.6 H (11.5-15.5) % Plt Count 49 L (150-450) k/uL PT (9.0-12.0) sec INR (<1.2) Sodium (137-145) mmol/L Carbon Dioxide (22-30) mmol/L BUN (9-20) mg/dL Creatinine (0.66-1.25) mg/dL Glucose (74-99) mg/dL POC Glucose (mg/dL) 315 H 282 H (75-99) mg/dL Calcium (8.4-10.2) mg/dL Total Bilirubin (0.2-1.3) mg/dL Albumin (3.5-5.0) g/dL 03/25/18 03/25/18 Range/Units 08:12 08:12 RBC (4.30-5.90) m/uL Hgb (13.0-17.5) gm/dL Hct (39.0-53.0) % MCV (80.0-100.0) fL MCH (25.0-35.0) pg RDW (11.5-15.5) % Plt Count (150-450) k/uL PT 16.8 H (9.0-12.0) sec INR 1.8 H (<1.2) Sodium 131 L (137-145) mmol/L Carbon Dioxide 19 L (22-30) mmol/L BUN 69 H (9-20) mg/dL Creatinine 1.92 H (0.66-1.25) mg/dL Glucose 269 H (74-99) mg/dL POC Glucose (mg/dL) (75-99) mg/dL Calcium 7.9 L (8.4-10.2) mg/dL Total Bilirubin 2.9 H (0.2-1.3) mg/dL Albumin 1.9 L (3.5-5.0) g/dL Microbiology - Last 24 Hours (Table) 03/22/18 09:47 Gram Stain - Preliminary Knee - Left Body Fluid Culture - Preliminary 03/22/18 21:14 Blood Culture - Preliminary Blood No Growth after 48 hours 03/22/18 20:48 Blood Culture - Preliminary Blood No Growth after 48 hours 03/22/18 09:47 Anaerobic Culture - Preliminary Synovial Fluid Clostridium sordellii 03/21/18 12:40 Blood Culture Gram Stain - Final Blood Blood Culture - Final Clostridium sordellii Assessment and Plan (1) Autoimmune hepatitis treated with steroids Current Visit: Yes Status: Acute Code(s): K75.4 - AUTOIMMUNE HEPATITIS SNOMED Code(s): 867494884 (2) Cirrhosis of liver Current Visit: Yes Status: Acute Code(s): K74.60 - UNSPECIFIED CIRRHOSIS OF LIVER SNOMED Code(s): 01204900 (3) Infection of total left knee replacement Current Visit: Yes Status: Acute Code(s): T84.54XA - INFECT/INFLM REACTION DUE TO INTERNAL LEFT KNEE PROSTH, INIT; Z96.652 - PRESENCE OF LEFT ARTIFICIAL KNEE JOINT SNOMED Code(s): 742037796 Plan: 1. Continue with Imuran and prednisone therapy LFTs improving. IV antibiotics. ID following closely. Appointment at [facility] April 07/MRI for second opinion per family request however may need to be deferred based on orthopedic evaluation recommendations/timing of of MRI secondary to recent surgery. We'll follow as needed. Assessment and plan a care discussed with Dr. Harrington
[2018-03-25 09:52] LABS: Poikilocytosis (M) Present
[2018-03-25] MEDS ORDERED: LIDOCAINE 1% INJ 10MG/ML (20 ML MDV) ONE (10:16)
[2018-03-25] MEDS ORDERED: LIDOCAINE 1% INJ 10MG/ML (20 ML MDV) SQ ONE (10:46)
[2018-03-25] MEDS: LIDOCAINE 5% PATCH TOPICAL SCH (11:27)
[2018-03-25 12:04] LABS: Glucose,Whole Blood 292 mg/dL (75-99)
--- NOTE | 2018-03-25 12:12 | P.PN ---
Subjective Progress Note Date: 03/25/18 This is a 78-year-old male patient of Dr. Donaldson with past medical history for diabetes mellitus type 2 steroid induced, DVT many years ago on 2 episodes, autoimmune hepatitis on Imuran, ulcerative colitis status post ileostomy originally in 1972 and revision in 1998 currently on azathioprine, kidney stones, varicose veins. Patient recently seen by Dr. Lopez for over a kidney stone and due to edema was sent into the office and has been seen several times by MINA Adams, with medication changes made by increasing Lasix and adding Zaroxolyn and Aldactone. He has ongoing problems with left- sided knee pain and fluid retention. He states he was unable to move his left knee and hip and that was recently came in to the hospital for evaluation. He denies having any fever, no nausea or vomiting. He has had decreased appetite. He has an ileostomy that has liquid output which is normal for him. He denies having any falls. Patient came into [facility] emergency center for evaluation. Chest x-ray showed no acute process. Knee x- ray showed diffuse subcutaneous soft tissue swelling with no acute fracture dislocation left knee arthroplasty or [place] bone. His white count was normal at 5.9, hemoglobin 11.1, platelet count 61, INR 2.0. Sodium 128, potassium 5.5 , CO2 19, BUN 16 creatinine 1.53 blood sugars have been elevated at 200s to 315. Magnesium was 1.4, total bilirubin 4.3, AST 69, ALT 76, alkaline phosphatase 121. Troponin was negative. C-reactive protein 47.3. Albumin 2.3 , proBNP 1630. Urinalysis was clear with moderate blood, small leukoesterase. There was concern for septic arthroplasty left knee and electrolyte abnormalities and acute kidney injury and patient was admitted to the Medr floor consults were requested with Dr. Pierce and Dr. Castelan. Subsequently, patient is been seen by Dr. Castelan and aspiration was done with concern for infection and plan is for I&D tomorrow in the OR. Consult with GI for autoimmune hepatitis. 03/23: Patient complains of feeling uncomfortable secondary to back pain from lying in bed. He is complaining of spasms across his back. He has slight decreased swelling to the left knee today. Blood culture showing gram-positive bacilli. He is scheduled for I&D today with Dr. Castelan. Patient has been seen by Dr. Pierce and he has added Unasyn to cover for Listeria and continued vancomycin. Repeat lab work today shows a hemoglobin 10.4, platelet count 47, INR 2, sodium 128, BUN 56 and creatinine 1.3. Blood sugars are running in the 200s. Patient received only half of his Levemir apparently in anticipation of nothing by mouth status. Total bilirubin 2.3, AST, ALT and alkaline phosphatase are within normal range. Albumin is 1.7. The patient has been seen by GI with recommendations continue Lasix and Aldactone, monitor liver enzymes, low sodium diet. 03/24: Patient underwent I&D yesterday with Dr. Castelan that did find purulent material was expressed and the bright added and drain was placed. Patient has been afebrile and vital signs and stable. Pulse ox is 94-98% on 2 L nasal cannula. Blood sugars are running in the 200s and Levemir will be increased to 15 units daily. But noted the patient's daughter has been refusing his NovoLog scale. Sodium is 127, BUN 59 creatinine 1.34. Updated patient's grandson at the bedside and his daughter over the phone regarding current condition, plan of care. BUN is 15 and creatinine 1.3. Sodium 127. Consult with nephrology added. Lasix and Aldactone will be resumed back on previous dose. Vitamin B12 and folic acid added. PICC line has been ordered. Patient's family is planning on [facility] at the time of discharge which most likely will occur on Friday. 03/25: Patient is complaining of back pain and he was started on baclofen a few days ago. We'll add and lidocaine patch as well. Patient was seen by Dr. Thrasher and cortisol level ordered. Patient received 1 dose of IV Lasix and to encourage oral protein intake. Bladder scans to be done to check for residual. PICC line is to be placed today. Blood culture and anaerobic culture from synovial fluid is positive for Clostridium sordellii. Dr. Pierce is following. He is currently on IV antibiotics of Unasyn and vancomycin. Blood sugars remain in the high 200s and NovoLog scheduled with meals will be added. Patient is currently weightbearing as tolerated on the left leg. He is working with PT and OT. Anticipate discharge to [facility] most likely tomorrow or [facility] Review of Systems All systems: negative Constitutional: Reports fatigue, Reports poor appetite, Reports weakness, Denies chills, Denies fever Eyes: denies blurred vision, denies pain Ears, nose, mouth and throat: Denies dysphagia, Denies headache, Denies sore throat, Denies vertigo Cardiovascular: Reports leg edema, Denies chest pain, Denies shortness of breath , Denies syncope Respiratory: Denies cough, Denies cough with sputum, Denies excessive sputum, Denies hemoptysis, Denies wheezing Gastrointestinal: Reports loss of appetite, Denies abdominal pain, Denies diarrhea, Denies melena, Denies nausea, Denies vomiting Genitourinary: Denies dysuria Musculoskeletal: Reports gait dysfunction, Denies myalgias Musculoskeletal: left: knee pain, knee swelling, complains of low back pain Integumentary: Reports wounds, Denies pruritus, Denies rash Neurological: Denies change in mentation, Denies confusion, Denies numbness, Denies weakness Psychiatric: Denies anxiety, Denies depression Endocrine: Denies fatigue, Denies weight change Objective - Vital Signs Vital signs: Vital Signs Temp 97.5 F L 03/25/18 07:17 Pulse 86 03/25/18 07:17 Resp 16 03/25/18 07:17 BP 112/66 03/25/18 07:17 Pulse Ox 99 03/25/18 07:17 Intake & Output 03/24/18 03/25/18 03/25/18 18:59 06:59 18:59 Intake Total 120 100 Output Total 145 600 Balance -25 -500 Intake: Intake, IV Titration 100 Amount Ampicillin-Sulbactam 3 gm 100 In Sodium Chloride 0.9% 100 ml @ 200 mls/hr IVPB Q6HR [facility] Rx#:[id number] Oral 120 Output: Drainage 20 Left Knee 20 Urine 125 600 Other: Voiding Method Urinal # Voids 1 - Exam Gen: This is an 78-year-old male. He is sitting up in recliner and appears to be uncomfortable. His is at the bedside. HEENT: Head is atraumatic, normocephalic. Pupils equal, round. Sclerae is anicteric. NECK: Supple. No JVD. No lymphadenopathy. No thyromegaly. LUNGS: Clear to auscultation. No wheezes or rhonchi. No intercostal retractions. HEART: Regular rate and rhythm. No murmur. ABDOMEN: Soft. Bowel sounds are present. No masses. No tenderness. Ileostomy with watery type stools. EXTREMITIES: 2+ pedal edema bilaterally. Edema to the left knee with tenderness. NEUROLOGICAL: Patient is awake, alert and oriented x3. Cranial nerves 2 through 12 are grossly intact. - Labs CBC & Chem 7: 03/25/18 08:12 03/25/18 08:12 Labs: Abnormal Lab Results - Last 24 Hours (Table) 03/24/18 03/24/18 03/24/18 Range/Units 07:33 07:33 12:01 RBC 2.28 L (4.30-5.90) m/uL Hgb 9.9 L (13.0-17.5) gm/dL Hct 30.9 L (39.0-53.0) % MCV 135.1 H D (80.0-100.0) fL MCH 43.4 H (25.0-35.0) pg RDW 18.6 H (11.5-15.5) % Plt Count 51 L (150-450) k/uL Lymphocytes # 0.2 L (1.0-4.8) k/uL PT 18.2 H (9.0-12.0) sec INR 2.0 H (<1.2) POC Glucose (mg/dL) 325 H (75-99) mg/dL 03/24/18 03/24/18 03/25/18 Range/Units 17:08 21:01 02:00 RBC (4.30-5.90) m/uL Hgb (13.0-17.5) gm/dL Hct (39.0-53.0) % MCV (80.0-100.0) fL MCH (25.0-35.0) pg RDW (11.5-15.5) % Plt Count (150-450) k/uL Lymphocytes # (1.0-4.8) k/uL PT (9.0-12.0) sec INR (<1.2) POC Glucose (mg/dL) 325 H 347 H 315 H (75-99) mg/dL 03/25/18 Range/Units 06:58 RBC (4.30-5.90) m/uL Hgb (13.0-17.5) gm/dL Hct (39.0-53.0) % MCV (80.0-100.0) fL MCH (25.0-35.0) pg RDW (11.5-15.5) % Plt Count (150-450) k/uL Lymphocytes # (1.0-4.8) k/uL PT (9.0-12.0) sec INR (<1.2) POC Glucose (mg/dL) 282 H (75-99) mg/dL Microbiology - Last 24 Hours (Table) 03/22/18 21:14 Blood Culture - Preliminary Blood No Growth after 48 hours 03/22/18 20:48 Blood Culture - Preliminary Blood No Growth after 48 hours 03/22/18 09:47 Anaerobic Culture - Preliminary Synovial Fluid Clostridium sordellii 03/21/18 12:40 Blood Culture Gram Stain - Final Blood Blood Culture - Final Clostridium sordellii Assessment and Plan Plan: 1. Acute kidney injury most likely secondary to poor oral intake and diuretics. Lasix and Aldactone dosing will be decreased. Monitor renal function daily. Metformin and glipizide discontinued. 2. Possible acute septic arthritis of the left knee. Consult with Dr. Castelan appreciated. Status post I&D. Consult with Dr. Pierce appreciated. Continue Unasyn and vancomycin. PICC line to be placed today 3. History of autoimmune hepatitis has been on Imuran and oral prednisone. Consult with GI appreciated. 4. Diabetes mellitus type 2, uncontrolled with hyperglycemia. Metformin and glipizide placed on hold. Increase Levemir to 15 units daily and NovoLog scale and Humalog scale before meals and at bedtime. Hemoglobin A1c is 7.3. 5. Hypercoagulopathy most likely secondary to autoimmune hepatitis. Monitor INR daily. Patient has not been on Coumadin. 6. Electrolyte abnormalities with hyponatremia, hyperkalemia, hypomagnesemia. Continue to monitor. 7. History of DVT, many years ago with no evidence of recurrence.6. Varicose veins, stable. 8. Gastrointestinal prophylaxis. Pepcid. 9. Stage II decubitus ulcer on the coccyx, present on admission. [facility]. 10. DVT prophylaxis. SADIA hose and SCDs. No heparin due to INR of 2. Discharge plan: [facility] on or Friday Impression and plan of care have been directed as dictated by the signing physician. Huong Bauer nurse practitioner acting as scribe for signing physician.
[2018-03-25] MEDS: FOLIC ACID 1 MG TAB PO SCH (12:57)
[2018-03-25] MEDS: CYANOCOBALAMIN 500 MCG TAB PO SCH (12:57)
[2018-03-25] MEDS: MULTIVITAMINS, THERA 1 EACH TAB PO SCH (12:57)
--- NOTE | 2018-03-25 14:19 | P.PN ---
Subjective Progress Note Date: 03/25/18 Principal diagnosis: status post I&D left knee Patient seen at bedside today. He is status post arthroscopic I&D of left knee where he had a previous total knee arthroplasty approximately 12 years ago done elsewhere. He has minimal pain at the surgical site as expected but is improved versus preoperative. He has no new complaints. Objective - Vital Signs Vital signs: Vital Signs Temp 97.5 F L 03/25/18 11:03 Pulse 86 03/25/18 11:03 Resp 16 03/25/18 11:03 BP 104/56 03/25/18 11:03 Pulse Ox 97 03/25/18 11:03 Intake & Output 03/24/18 03/25/18 03/25/18 18:59 06:59 18:59 Intake Total 120 100 120 Output Total 145 600 Balance -25 -500 120 Intake: Intake, IV Titration 100 Amount Ampicillin-Sulbactam 3 gm 100 In Sodium Chloride 0.9% 100 ml @ 200 mls/hr IVPB Q6HR [facility] Rx#:[id number] Oral 120 120 Output: Drainage 20 Left Knee 20 Urine 125 600 Other: Voiding Method Urinal # Voids 1 - Exam Inspection of the left lower extremity shows bandage in place as well as Hemovac. There is mild amount of bleed through the bandage. There is mild amount blood tinged serosangous fluid in hemovac. Neurovascular status is grossly intact distally with motor and sensation throughout the foot and toes. 1+ dorsal pedis pulses present. He has chronic peripheral edema. Calf is soft nontender. - Constitutional General appearance: Present: no acute distress - Labs CBC & Chem 7: 03/25/18 08:12 03/25/18 08:12 Labs: Abnormal Lab Results - Last 24 Hours (Table) 03/24/18 03/24/18 03/25/18 Range/Units 17:08 21:01 02:00 RBC (4.30-5.90) m/uL Hgb (13.0-17.5) gm/dL Hct (39.0-53.0) % MCV (80.0-100.0) fL MCH (25.0-35.0) pg RDW (11.5-15.5) % Plt Count (150-450) k/uL Lymphocytes # (1.0-4.8) k/uL PT (9.0-12.0) sec INR (<1.2) Sodium (137-145) mmol/L Carbon Dioxide (22-30) mmol/L BUN (9-20) mg/dL Creatinine (0.66-1.25) mg/dL Glucose (74-99) mg/dL POC Glucose (mg/dL) 325 H 347 H 315 H (75-99) mg/dL Calcium (8.4-10.2) mg/dL Total Bilirubin (0.2-1.3) mg/dL Albumin (3.5-5.0) g/dL 03/25/18 03/25/18 03/25/18 Range/Units 06:58 08:12 08:12 RBC 2.46 L (4.30-5.90) m/uL Hgb 10.6 L (13.0-17.5) gm/dL Hct 32.5 L (39.0-53.0) % MCV 131.9 H (80.0-100.0) fL MCH 43.1 H (25.0-35.0) pg RDW 18.6 H (11.5-15.5) % Plt Count 49 L (150-450) k/uL Lymphocytes # 0.3 L (1.0-4.8) k/uL PT 16.8 H (9.0-12.0) sec INR 1.8 H (<1.2) Sodium (137-145) mmol/L Carbon Dioxide (22-30) mmol/L BUN (9-20) mg/dL Creatinine (0.66-1.25) mg/dL Glucose (74-99) mg/dL POC Glucose (mg/dL) 282 H (75-99) mg/dL Calcium (8.4-10.2) mg/dL Total Bilirubin (0.2-1.3) mg/dL Albumin (3.5-5.0) g/dL 03/25/18 03/25/18 Range/Units 08:12 12:00 RBC (4.30-5.90) m/uL Hgb (13.0-17.5) gm/dL Hct (39.0-53.0) % MCV (80.0-100.0) fL MCH (25.0-35.0) pg RDW (11.5-15.5) % Plt Count (150-450) k/uL Lymphocytes # (1.0-4.8) k/uL PT (9.0-12.0) sec INR (<1.2) Sodium 131 L (137-145) mmol/L Carbon Dioxide 19 L (22-30) mmol/L BUN 69 H (9-20) mg/dL Creatinine 1.92 H (0.66-1.25) mg/dL Glucose 269 H (74-99) mg/dL POC Glucose (mg/dL) 292 H (75-99) mg/dL Calcium 7.9 L (8.4-10.2) mg/dL Total Bilirubin 2.9 H (0.2-1.3) mg/dL Albumin 1.9 L (3.5-5.0) g/dL Microbiology - Last 24 Hours (Table) 03/22/18 09:47 Gram Stain - Preliminary Knee - Left Body Fluid Culture - Preliminary 03/22/18 21:14 Blood Culture - Preliminary Blood No Growth after 48 hours 03/22/18 20:48 Blood Culture - Preliminary Blood No Growth after 48 hours 03/22/18 09:47 Anaerobic Culture - Preliminary Synovial Fluid Clostridium sordellii 03/21/18 12:40 Blood Culture Gram Stain - Final Blood Blood Culture - Final Clostridium sordellii Assessment and Plan (1) Infection of total left knee replacement Narrative/Plan: Continue wound care, pain management and elevation. We'll continue to monitor output of the Hemovac will likeley D/C drain tomorrow. Request DVT prophylaxis/ anticoagulation per internal medicine. He may be weightbearing as tolerated and work with physical therapy. Antibiotics per infectious disease. We'll continue to follow. Current Visit: Yes Status: Acute Priority: Medium Code(s): T84.54XA - INFECT/INFLM REACTION DUE TO INTERNAL LEFT KNEE PROSTH, INIT; Z96.652 - PRESENCE OF LEFT ARTIFICIAL KNEE JOINT SNOMED Code(s): 546487959 Time with Patient: Less than 30
--- NOTE | 2018-03-25 14:39 | IR ---
EXAMINATION TYPE: IR cvc insert >=5 years DATE OF EXAM: 03/25/2018 COMPARISON: NONE CLINICAL HISTORY: Infection Needs long-term intravenous access for antibiotics. PROCEDURE: After informed consent, the skin overlying the right basilic vein was localized with ultrasound and n oted to be compressible and patent. An ultrasound image was obtained and submitted on the patient's chart. The overlying skin was prepped and draped and Lidocaine was used for local anesthesia. A ski n meghna was made with a scalpel. Access was gained to the vein under ultrasound guidance with a 21 ga uge needle and a 0.018 inch wire was advanced. Access site was dilated with Peel-Away sheath and cat heter tailored to the appropriate length and advanced such that the distal tip is at the cavoatrial j unction. Spot image was obtained verifying placement. Catheter was fixed to the skin and a sterile dressing was placed following hemostasis. Catheter was aspirated and flushed with saline. Patient w as discharged in stable condition without complication. Maximal barrier technique is utilized. Ultra sound image is documented on the chart. Ultrasound used with sterile technique. Fluoro time and fluoroscopic images submitted to document procedure: 0.2 minutes fluoroscopy time, 17 intraoperative C-arm images IMPRESSION: STATUS POST ULTRASOUND AND FLUOROSCOPIC GUIDED PICC LINE PLACEMENT, READY FOR USE. THIS PROCEDURE WAS PERFORMED BY THE UNDERSIGNED.
[2018-03-25 17:59] LABS: Glucose,Whole Blood 279 mg/dL (75-99)
[2018-03-25 20:40] LABS: Glucose,Whole Blood 250 mg/dL (75-99)
--- NOTE | 2018-03-25 20:54 | PN ---
PROGRESS NOTE Patient is seen for followup for acute kidney injury and hyponatremia. Patient was started on oral Lasix. His sodium has improved from 127 yesterday to 131. Blood pressure had been on the lower side. Patient is also maintained on vancomycin. His serum creatinine was significantly elevated today. It did go up from 1.3 yesterday to 1.92 today. Urine output for 24 hours was about 745 mL. Patient has had some urine retention; however, he has been able to void. He has been complaining of pain and had just received pain medications this morning when I saw him. Blood pressure this morning was 112/66, heart rate of 86 per minute. Patient is afebrile. EXAMINATION OF THE HEART: S1, S2. EXAMINATION OF LUNGS: Bilateral breath sounds are heard. ABDOMEN: Soft, non-tender. Examination of lower extremities shows edema 2+ bilaterally. [employer] exam is grossly intact. Labs from today show sodium 131, potassium 4.9, BUN 69, serum creatinine 1.92, hemoglobin 10.6 g/dL. ASSESSMENT: 1. Acute kidney injury, most likely acute tubular necrosis associated with hypotension, hypoperfusion and component of toxicity from vancomycin. I will hold off on the vancomycin for now. This will be communicated to ID. Will also check vancomycin level. 2. Septic arthritis with synovial fluid culture growing Clostridium sordellii, being followed by Infectious Disease, currently with a drain. 3. History of autoimmune hepatitis, maintained on prednisone and azathioprine. We should consider holding off on the Imuran, given the underlying infection. We can continue with the steroids. 4. Hyponatremia which was hypervolemic, currently improved with Lasix. I will continue the current dose of p.o. Lasix. PLAN: Hold off on vancomycin. Check vancomycin level. Recommend holding off on the Imuran, given the underlying septic arthritis. We can continue with the prednisone for now. MMODL / IJN: [id number] /
[2018-03-25] MEDS: MAGNESIUM OXIDE 400 MG TAB PO SCH (21:52)
[2018-03-26 02:20] LABS: Glucose,Whole Blood 271 mg/dL (75-99)
[2018-03-26] MEDS: INSULIN ASPART 100 UNIT/ML 1 ML 10 ML VIAL SQ SCH ×8 (03:53→22:35)
[2018-03-26] MEDS: AMPICILLIN-SULBACTAM 3 GM in SODIUM CHLORIDE 0.9% 100 ML IVPB SCH ×2 (05:49→12:25)
[2018-03-26 07:22] LABS: Glucose,Whole Blood 311 mg/dL (75-99)
--- NOTE | 2018-03-26 08:20 | P.DS ---
Providers Date of admission: 03/21/18 16:51 Expected date of discharge: 03/29/18 Attending physician: Sixto Donaldson Consults: 03/21/18 15:49 Consult Physician Routine Consulting Provider: Jet Castelan Consult Reason/Comments: knee pain, r/o septic arthritis Do you want consulting provider notified?: Already Contacted 03/21/18 16:14 Consult Physician Routine Consulting Provider: Sixto Pierce Consult Reason/Comments: possible septic arthritis Do you want consulting provider notified?: Yes 03/23/18 16:44 Consult Physician Routine Consulting Provider: Sixto Donaldson Consult Reason/Comments: DVT prophylaxis/anticoagulation recommendation Do you want consulting provider notified?: Yes 03/24/18 09:35 Consult Physician Routine Consulting Provider: Patricia Thrasher Consult Reason/Comments: CKD, hyponatremia Do you want consulting provider notified?: Yes Primary care physician: Sixto Donaldson [facility] Course: This is a 78-year-old male patient of Dr. Donaldson with past medical history for diabetes mellitus type 2 steroid induced, DVT many years ago on 2 episodes, autoimmune hepatitis on Imuran, ulcerative colitis status post ileostomy originally in 1972 and revision in 1998 currently on azathioprine, kidney stones, varicose veins. Patient recently seen by Dr. Lopez for over a kidney stone and due to edema was sent into the office and has been seen several times by MINA Adams, with medication changes made by increasing Lasix and adding Zaroxolyn and Aldactone. He has ongoing problems with left- sided knee pain and fluid retention. He states he was unable to move his left knee and hip and that was recently came in to the hospital for evaluation. He denies having any fever, no nausea or vomiting. He has had decreased appetite. He has an ileostomy that has liquid output which is normal for him. He denies having any falls. Patient came into [facility] emergency center for evaluation. Chest x-ray showed no acute process. Knee x- ray showed diffuse subcutaneous soft tissue swelling with no acute fracture dislocation left knee arthroplasty or [place] bone. His white count was normal at 5.9, hemoglobin 11.1, platelet count 61, INR 2.0. Sodium 128, potassium 5.5 , CO2 19, BUN 16 creatinine 1.53 blood sugars have been elevated at 200s to 315. Magnesium was 1.4, total bilirubin 4.3, AST 69, ALT 76, alkaline phosphatase 121. Troponin was negative. C-reactive protein 47.3. Albumin 2.3 , proBNP 1630. Urinalysis was clear with moderate blood, small leukoesterase. There was concern for septic arthroplasty left knee and electrolyte abnormalities and acute kidney injury and patient was admitted to the [facility] floor consults were requested with Dr. Pierce and Dr. Castelan. Subsequently, patient is been seen by Dr. Castelan and aspiration was done with concern for infection and plan is for I&D tomorrow in the OR. Consult with GI for autoimmune hepatitis. 03/23: Patient complains of feeling uncomfortable secondary to back pain from lying in bed. He is complaining of spasms across his back. He has slight decreased swelling to the left knee today. Blood culture showing gram-positive bacilli. He is scheduled for I&D today with Dr. Castelan. Patient has been seen by Dr. Pierce and he has added Unasyn to cover for Listeria and continued vancomycin. Repeat lab work today shows a hemoglobin 10.4, platelet count 47, INR 2, sodium 128, BUN 56 and creatinine 1.3. Blood sugars are running in the 200s. Patient received only half of his Levemir apparently in anticipation of nothing by mouth status. Total bilirubin 2.3, AST, ALT and alkaline phosphatase are within normal range. Albumin is 1.7. The patient has been seen by GI with recommendations continue Lasix and Aldactone, monitor liver enzymes, low sodium diet. 03/24: Patient underwent I&D yesterday with Dr. Castelan that did find purulent material was expressed and the bright added and drain was placed. Patient has been afebrile and vital signs and stable. Pulse ox is 94-98% on 2 L nasal cannula. Blood sugars are running in the 200s and Levemir will be increased to 15 units daily. But noted the patient's daughter has been refusing his NovoLog scale. Sodium is 127, BUN 59 creatinine 1.34. Updated patient's grandson at the bedside and his daughter over the phone regarding current condition, plan of care. BUN is 15 and creatinine 1.3. Sodium 127. Consult with nephrology added. Lasix and Aldactone will be resumed back on previous dose. Vitamin B12 and folic acid added. PICC line has been ordered. Patient's family is planning on [facility] at the time of discharge which most likely will occur on Friday. 03/25: Patient is complaining of back pain and he was started on baclofen a few days ago. We'll add and lidocaine patch as well. Patient was seen by Dr. Thrasher and cortisol level ordered. Patient received 1 dose of IV Lasix and to encourage oral protein intake. Bladder scans to be done to check for residual. PICC line is to be placed today. Blood culture and anaerobic culture from synovial fluid is positive for Clostridium sordellii. Dr. Pierce is following. He is currently on IV antibiotics of Unasyn and vancomycin. Blood sugars remain in the high 200s and NovoLog scheduled with meals will be added. Patient is currently weightbearing as tolerated on the left leg. He is working with PT and OT. Anticipate discharge to [facility] most likely tomorrow or Monday 03/26: Dr. Pierce is clarified antibiotics for Unasyn for 6 weeks. Blood sugars continue to be elevated for which Levemir will be increased to 20 units daily and NovoLog with meals to 7 units. Patient states he is much more comfortable today and back pain is improved. Hemoglobin is 9, sodium 129, chloride 108, carbon dioxide 15, BUN 84 and creatinine 2.6. Vancomycin has been discontinued. Currently, there are no beds available at [facility] and family have been asked to find another halfway. They will discuss and is a halfway to make a decision. Anticipate discharge by tomorrow. PICC line was placed yesterday by interventional radiology. 03/27:patient has had scant urine output today. BUN 96 and creatinine 3.43. Sodium 125 and potassium 5.5. Blood sugars are running in the low 200s. Discharge to [facility] will be canceled for today. Patient's and grandson are at the bedside. [id number] is also on the phone/conference call during evaluation. Discussed with family that patient's prognosis is very poor. Patient's wishes aren't for no aggressive treatment.chest x-rays show small pleural effusion and associated bibasilar airspace disease likely atelectasis.patient remains on fluid restriction of 1500 ML's. He is eating very little. Sodium bicarb was added yesterday. 03/28: Patient is very drowsy today barely arousable, I spoke with his family beside that the prognosis very poor and they should really discussed hospice care,his daughter in law is driving in to see patient. 03/29: Patient was transitioned to inpatient hospice care and on 2017. Please see nursing documentation for details. Discharge diagnoses: 1. Acute kidney injury most likely secondary to poor oral intake and diuretics- -preliminary cause of 2. Possible acute septic arthritis of the left knee. Status post I&D. 3. History of autoimmune hepatitis has been on Imuran and oral prednisone. 4. Diabetes mellitus type 2, uncontrolled with hyperglycemia. 5. Hypercoagulopathy most likely secondary to autoimmune hepatitis. 6. Electrolyte abnormalities with hyponatremia, hyperkalemia, hypomagnesemia. 7. History of DVT, many years ago with no evidence of recurrence.6. Varicose veins, stable. 8. Stage II decubitus ulcer on the coccyx, present on admission. Discharge plan: [facility] on Impression and plan of care have been directed as dictated by the signing physician. Huong Bauer nurse practitioner acting as scribe for signing physician. Patient Condition at Discharge: Good Plan - Discharge Summary Discharge Rx Participant: No New Discharge Prescriptions: New Ampicillin-Sulbactam [Unasyn] 3 gm IVPB Q6HR #156 vial Cyanocobalamin [Vitamin B-12] 500 mcg PO DAILY@1200 tab Famotidine [Pepcid] 20 mg PO DAILY tab Folic Acid 0.5 mg PO DAILY@1200 tab HYDROcodone/APAP 5-325MG [[place] 5-325] 1 each PO Q6HR PRN #12 tab PRN Reason: Moderate Pain Insulin Aspart [NovoLOG (formulary)] 0 unit SQ [id number] vial Insulin Aspart [NovoLOG (formulary)] 10 unit SQ AC-TID vial Insulin Detemir [Levemir] 25 unit SQ DAILY syr Lidocaine 5% Patch [Lidoderm 5% Patch] 1 patch TOPICAL DAILY patch Sodium Bicarbonate Tab 1,300 mg PO BID tab Continue Loratadine [Claritin] 10 mg PO DAILY azaTHIOprine [Azathioprine] 50 mg PO BID Tamsulosin HCl [Flomax] 0.4 mg PO BID Magnesium 250mg Tab 250 mg PO HS Baclofen 5 mg PO BID Ferrous Sulfate [Feosol] 325 mg PO DAILY #30 tab Multivitamins, Thera [Multivitamin (formulary)] 2 tab PO DAILY Furosemide [Lasix] 40 mg PO DAILY Ergocalciferol [Vitamin D2 (DRISDOL)] 50,000 unit PO MO predniSONE 20 mg PO DAILY glipiZIDE/METFORMIN HCL [glipiZIDE/METFORMIN HCL 2.5-500 mg] 1 tab PO BID Spironolactone 25 mg PO DAILY Furosemide [Lasix] 20 mg PO DAILY@1200 Discontinued Insulin Aspart (Niacinamide) [Fiasp 100 Unit/ml Flextouch] See Protocol SQ DAILY Discharge Medication List Baclofen 5 mg PO BID 08/22/15 [History] Loratadine [Claritin] 10 mg PO DAILY 08/22/15 [History] Magnesium 250mg Tab 250 mg PO HS 08/22/15 [History] Tamsulosin HCl [Flomax] 0.4 mg PO BID 08/22/15 [History] azaTHIOprine [Azathioprine] 50 mg PO BID 08/22/15 [History] Ferrous Sulfate [Feosol] 325 mg PO DAILY #30 tab 09/19/15 [Rx] Ergocalciferol [Vitamin D2 (DRISDOL)] 50,000 unit PO MO 03/04/18 [History] Furosemide [Lasix] 40 mg PO DAILY 03/04/18 [History] Multivitamins, Thera [Multivitamin (formulary)] 2 tab PO DAILY 03/04/18 [History ] predniSONE 20 mg PO DAILY 03/04/18 [History] Furosemide [Lasix] 20 mg PO DAILY@1200 03/21/18 [History] Spironolactone 25 mg PO DAILY 03/21/18 [History] glipiZIDE/METFORMIN HCL [glipiZIDE/METFORMIN HCL 2.5-500 mg] 1 tab PO BID [History] Ampicillin-Sulbactam [Unasyn] 3 gm IVPB Q6HR #156 vial 03/26/18 [Rx] Cyanocobalamin [Vitamin B-12] 500 mcg PO DAILY@1200 tab 03/27/18 [Rx] Famotidine [Pepcid] 20 mg PO DAILY tab 03/27/18 [Rx] Folic Acid 0.5 mg PO DAILY@1200 tab 03/27/18 [Rx] HYDROcodone/APAP 5-325MG [[place] 5-325] 1 each PO Q6HR PRN #12 tab 03/27/18 [Rx] Insulin Aspart [NovoLOG (formulary)] 0 unit SQ [id number] vial 03/27/18 [Rx] Insulin Aspart [NovoLOG (formulary)] 10 unit SQ AC-TID vial 03/27/18 [Rx] Insulin Detemir [Levemir] 25 unit SQ DAILY syr 03/27/18 [Rx] Lidocaine 5% Patch [Lidoderm 5% Patch] 1 patch TOPICAL DAILY patch 03/27/18 [Rx ] Sodium Bicarbonate Tab 1,300 mg PO BID tab 03/27/18 [Rx] Follow up Appointment(s)/Referral(s): Patricia Thrasher MD [STAFF PHYSICIAN] - 2 Weeks Sixto Pierce MD [STAFF PHYSICIAN] - 3 Weeks Sixto Donaldson MD [Primary Care Provider] - 1 Week (after discharge from [facility]) Ramos [facility], [NON-STAFF] - As Needed Jet Castelan MD [STAFF PHYSICIAN] - 04/02/18 9:00 am Ambulatory/Diagnostic Orders: Basic Metabolic Panel [LAB.AMB] Location: None Selected Complete Blood Count w/diff [LAB.AMB] Location: None Selected C Reactive Protein [LAB.AMB] Location: None Selected Erythrocyte Sedimentation Rate [LAB.AMB] Location: None Selected Activity/Diet/Wound Care/Special Instructions: Keep wound clean and dry Follow-up with Dr. Castelan in office Weight bear as tolerated Sutures out at post op day #10 May shower in 3 days if no bleeding Discharge Disposition: DISCH TO [facility]
[2018-03-26] MEDS: INSULIN DETEMIR 100 UNIT/ML 10 ML VIAL SQ SCH (08:30)
[2018-03-26] MEDS: TAMSULOSIN 0.4 MG CAP.ER.24H PO SCH ×2 (08:31→22:40)
[2018-03-26] MEDS: SPIRONOLACTONE 25 MG TAB PO SCH (08:31)
[2018-03-26] MEDS: MULTIVITAMINS, THERA 1 EACH TAB PO SCH (08:32)
[2018-03-26] MEDS: BACLOFEN 10 MG TAB PO SCH ×2 (08:32→22:41)
[2018-03-26] MEDS: FAMOTIDINE 20 MG TAB PO SCH (08:32)
[2018-03-26] MEDS: FUROSEMIDE 40 MG TAB PO SCH ×2 (08:32→13:29)
[2018-03-26] MEDS: FERROUS SULFATE 325 MG TAB PO SCH (08:32)
[2018-03-26] MEDS: FOLIC ACID 1 MG TAB PO SCH (08:32)
[2018-03-26] MEDS: predniSONE 20 MG TAB PO SCH (08:32)
[2018-03-26] MEDS: CYANOCOBALAMIN 500 MCG TAB PO SCH (08:32)
[2018-03-26] MEDS: LORATADINE 10 MG TAB PO SCH (08:33)
[2018-03-26] MEDS: azaTHIOprine 50 MG TAB PO SCH ×2 (08:33→22:41)
[2018-03-26] MEDS: LIDOCAINE 5% PATCH TOPICAL SCH (08:33)
[2018-03-26 08:49] LABS: Anisocytosis Slight; HCT 27.7 % (39.0-53.0); Hypochromasia Moderate; MCHC 32.4 g/dL (31.0-37.0); MCV 135.2 fL (80.0-100.0); Macrocytosis Marked; Mean Platelet Volume 8.3; RBC 2.05 m/uL (4.30-5.90); RDW 18.5 % (11.5-15.5); WBC 4.8 k/uL (3.8-10.6)
[2018-03-26 08:55] LABS: Calcium 7.6 mg/dL (8.4-10.2)
[2018-03-26] MEDS ORDERED: INSULIN ASPART 100 UNIT/ML 1 ML 10 ML VIAL SQ ONE (09:00)
[2018-03-26] MEDS ORDERED: INSULIN DETEMIR 100 UNIT/ML 10 ML VIAL SQ ONE (09:00)
[2018-03-26 09:13] LABS: MCH 43.8 pg (25.0-35.0)
[2018-03-26 09:14] LABS: Platelet Count 47 k/uL (150-450)
[2018-03-26 12:07] LABS: Glucose,Whole Blood 205 mg/dL (75-99)
--- NOTE | 2018-03-26 13:22 | P.PN ---
Subjective Progress Note Date: 03/26/18 This is a 78-year-old male patient of Dr. Donaldson with past medical history for diabetes mellitus type 2 steroid induced, DVT many years ago on 2 episodes, autoimmune hepatitis on Imuran, ulcerative colitis status post ileostomy originally in 1972 and revision in 1998 currently on azathioprine, kidney stones, varicose veins. Patient recently seen by Dr. Lopez for over a kidney stone and due to edema was sent into the office and has been seen several times by MINA Adams, with medication changes made by increasing Lasix and adding Zaroxolyn and Aldactone. He has ongoing problems with left- sided knee pain and fluid retention. He states he was unable to move his left knee and hip and that was recently came in to the hospital for evaluation. He denies having any fever, no nausea or vomiting. He has had decreased appetite. He has an ileostomy that has liquid output which is normal for him. He denies having any falls. Patient came into [facility] emergency center for evaluation. Chest x-ray showed no acute process. Knee x- ray showed diffuse subcutaneous soft tissue swelling with no acute fracture dislocation left knee arthroplasty or [place] bone. His white count was normal at 5.9, hemoglobin 11.1, platelet count 61, INR 2.0. Sodium 128, potassium 5.5 , CO2 19, BUN 16 creatinine 1.53 blood sugars have been elevated at 200s to 315. Magnesium was 1.4, total bilirubin 4.3, AST 69, ALT 76, alkaline phosphatase 121. Troponin was negative. C-reactive protein 47.3. Albumin 2.3 , proBNP 1630. Urinalysis was clear with moderate blood, small leukoesterase. There was concern for septic arthroplasty left knee and electrolyte abnormalities and acute kidney injury and patient was admitted to the [facility] floor consults were requested with Dr. Pierce and Dr. Castelan. Subsequently, patient is been seen by Dr. Castelan and aspiration was done with concern for infection and plan is for I&D tomorrow in the OR. Consult with GI for autoimmune hepatitis. 03/23: Patient complains of feeling uncomfortable secondary to back pain from lying in bed. He is complaining of spasms across his back. He has slight decreased swelling to the left knee today. Blood culture showing gram-positive bacilli. He is scheduled for I&D today with Dr. Castelan. Patient has been seen by Dr. Pierce and he has added Unasyn to cover for Listeria and continued vancomycin. Repeat lab work today shows a hemoglobin 10.4, platelet count 47, INR 2, sodium 128, BUN 56 and creatinine 1.3. Blood sugars are running in the 200s. Patient received only half of his Levemir apparently in anticipation of nothing by mouth status. Total bilirubin 2.3, AST, ALT and alkaline phosphatase are within normal range. Albumin is 1.7. The patient has been seen by GI with recommendations continue Lasix and Aldactone, monitor liver enzymes, low sodium diet. 03/24: Patient underwent I&D yesterday with Dr. Castelan that did find purulent material was expressed and the bright added and drain was placed. Patient has been afebrile and vital signs and stable. Pulse ox is 94-98% on 2 L nasal cannula. Blood sugars are running in the 200s and Levemir will be increased to 15 units daily. But noted the patient's daughter has been refusing his NovoLog scale. Sodium is 127, BUN 59 creatinine 1.34. Updated patient's grandson at the bedside and his daughter over the phone regarding current condition, plan of care. BUN is 15 and creatinine 1.3. Sodium 127. Consult with nephrology added. Lasix and Aldactone will be resumed back on previous dose. Vitamin B12 and folic acid added. PICC line has been ordered. Patient's family is planning on [facility] at the time of discharge which most likely will occur on Friday. 03/25: Patient is complaining of back pain and he was started on baclofen a few days ago. We'll add and lidocaine patch as well. Patient was seen by Dr. Thrasher and cortisol level ordered. Patient received 1 dose of IV Lasix and to encourage oral protein intake. Bladder scans to be done to check for residual. PICC line is to be placed today. Blood culture and anaerobic culture from synovial fluid is positive for Clostridium sordellii. Dr. Pierce is following. He is currently on IV antibiotics of Unasyn and vancomycin. Blood sugars remain in the high 200s and NovoLog scheduled with meals will be added. Patient is currently weightbearing as tolerated on the left leg. He is working with PT and OT. Anticipate discharge to [facility] most likely tomorrow or Monday 03/26: Dr. Pierce is clarified antibiotics for Unasyn for 6 weeks. Blood sugars continue to be elevated for which Levemir will be increased to 20 units daily and NovoLog with meals to 7 units. Patient states he is much more comfortable today and back pain is improved. Hemoglobin is 9, sodium 129, chloride 108, carbon dioxide 15, BUN 84 and creatinine 2.6. Vancomycin has been discontinued. Currently, there are no beds available at [facility] and family have been asked to find another group home. They will discuss and is a group home to make a decision. Anticipate discharge by tomorrow. PICC line was placed yesterday by interventional radiology. Review of Systems All systems: negative Constitutional: Reports fatigue, Reports poor appetite, Reports weakness, Denies chills, Denies fever Eyes: denies blurred vision, denies pain Ears, nose, mouth and throat: Denies dysphagia, Denies headache, Denies sore throat, Denies vertigo Cardiovascular: Reports leg edema, Denies chest pain, Denies shortness of breath , Denies syncope Respiratory: Denies cough, Denies cough with sputum, Denies excessive sputum, Denies hemoptysis, Denies wheezing Gastrointestinal: Reports loss of appetite, Denies abdominal pain, Denies diarrhea, Denies melena, Denies nausea, Denies vomiting Genitourinary: Denies dysuria Musculoskeletal: Reports gait dysfunction, Denies myalgias Musculoskeletal: left: knee pain, knee swelling, complains of low back pain- improved Integumentary: Reports wounds, Denies pruritus, Denies rash Neurological: Denies change in mentation, Denies confusion, Denies numbness, Denies weakness Psychiatric: Denies anxiety, Denies depression Endocrine: Denies fatigue, Denies weight change Objective - Vital Signs Vital signs: Vital Signs Temp 98.0 F 03/26/18 07:11 Pulse 83 03/26/18 07:11 Resp 17 03/26/18 08:08 BP 113/67 03/26/18 07:11 Pulse Ox 98 03/26/18 07:11 Intake & Output 03/25/18 03/26/18 03/26/18 18:59 06:59 18:59 Intake Total 320 1360 540 Output Total 20 720 30 Balance 300 640 510 Weight 81.828 kg Intake: Intake, IV Titration 100 Amount Ampicillin-Sulbactam 3 gm 100 In Sodium Chloride 0.9% 100 ml @ 200 mls/hr IVPB Q6HR [facility] Rx#:[id number] Oral 120 1260 540 Other 200 Output: Drainage 20 20 30 Left Knee 20 20 30 Urine 600 Stool 100 Other: Voiding Method Indwelling Catheter Indwelling Catheter # Voids 3 1 - Exam Gen: This is an 78-year-old male. He is sitting up in recliner and appears to be comfortable. His is at the bedside. HEENT: Head is atraumatic, normocephalic. Pupils equal, round. Sclerae is anicteric. NECK: Supple. No JVD. No lymphadenopathy. No thyromegaly. LUNGS: Clear to auscultation. No wheezes or rhonchi. No intercostal retractions. HEART: Regular rate and rhythm. No murmur. ABDOMEN: Soft. Bowel sounds are present. No masses. No tenderness. Ileostomy with watery type stools. EXTREMITIES: 2+ pedal edema bilaterally. Edema to the left knee with tenderness. NEUROLOGICAL: Patient is awake, alert and oriented x3. Cranial nerves 2 through 12 are grossly intact. - Labs CBC & Chem 7: 03/26/18 07:24 03/26/18 07:24 Labs: Abnormal Lab Results - Last 24 Hours (Table) 03/25/18 03/25/18 03/26/18 Range/Units 17:51 20:19 02:09 RBC (4.30-5.90) m/uL Hgb (13.0-17.5) gm/dL Hct (39.0-53.0) % MCV (80.0-100.0) fL MCH (25.0-35.0) pg RDW (11.5-15.5) % Plt Count (150-450) k/uL Sodium (137-145) mmol/L Chloride (98-107) mmol/L Carbon Dioxide (22-30) mmol/L BUN (9-20) mg/dL Creatinine (0.66-1.25) mg/dL Glucose (74-99) mg/dL POC Glucose (mg/dL) 279 H 250 H 271 H (75-99) mg/dL Calcium (8.4-10.2) mg/dL 03/26/18 03/26/18 03/26/18 Range/Units 07:11 07:24 07:24 RBC 2.05 L (4.30-5.90) m/uL Hgb 9.0 L D (13.0-17.5) gm/dL Hct 27.7 L (39.0-53.0) % MCV 135.2 H (80.0-100.0) fL MCH 43.8 H (25.0-35.0) pg RDW 18.5 H (11.5-15.5) % Plt Count 47 L (150-450) k/uL Sodium 129 L (137-145) mmol/L Chloride 108 H (98-107) mmol/L Carbon Dioxide 15 L (22-30) mmol/L BUN 84 H (9-20) mg/dL Creatinine 2.60 H (0.66-1.25) mg/dL Glucose 227 H (74-99) mg/dL POC Glucose (mg/dL) 311 H (75-99) mg/dL Calcium 7.6 L (8.4-10.2) mg/dL 03/26/18 Range/Units 11:55 RBC (4.30-5.90) m/uL Hgb (13.0-17.5) gm/dL Hct (39.0-53.0) % MCV (80.0-100.0) fL MCH (25.0-35.0) pg RDW (11.5-15.5) % Plt Count (150-450) k/uL Sodium (137-145) mmol/L Chloride (98-107) mmol/L Carbon Dioxide (22-30) mmol/L BUN (9-20) mg/dL Creatinine (0.66-1.25) mg/dL Glucose (74-99) mg/dL POC Glucose (mg/dL) 205 H (75-99) mg/dL Calcium (8.4-10.2) mg/dL Microbiology - Last 24 Hours (Table) 03/22/18 09:47 Anaerobic Culture - Final Synovial Fluid Clostridium sordellii 03/22/18 09:47 Gram Stain - Final Knee - Left Body Fluid Culture - Final 03/22/18 21:14 Blood Culture - Preliminary Blood No Growth after 72 hours 03/22/18 20:48 Blood Culture - Preliminary Blood No Growth after 72 hours Assessment and Plan Plan: 1. Acute kidney injury most likely secondary to poor oral intake and diuretics. Lasix and Aldactone dosing will be decreased. Monitor renal function daily. Metformin and glipizide discontinued. 2. Possible acute septic arthritis of the left knee. Consult with Dr. Castelan appreciated. Status post I&D. Consult with Dr. Pierce appreciated. Continue Unasyn only. Vancomycin discontinued. PICC line has been placed. 3. History of autoimmune hepatitis has been on Imuran and oral prednisone. Consult with GI appreciated. 4. Diabetes mellitus type 2, uncontrolled with hyperglycemia. Metformin and glipizide placed on hold. Increase Levemir to 20 units daily and NovoLog 7 units and Humalog scale before meals and at bedtime. Hemoglobin A1c is 7.3. 5. Hypercoagulopathy most likely secondary to autoimmune hepatitis. Monitor INR daily. Patient has not been on Coumadin. 6. Electrolyte abnormalities with hyponatremia, hyperkalemia, hypomagnesemia. Continue to monitor. 7. History of DVT, many years ago with no evidence of recurrence.6. Varicose veins, stable. 8. Gastrointestinal prophylaxis. Pepcid. 9. Stage II decubitus ulcer on the coccyx, present on admission. [facility] local wound care. 10. DVT prophylaxis. SADIA hose and SCDs. No heparin due to INR of 2. Discharge plan: [facility] on Friday Impression and plan of care have been directed as dictated by the signing physician. Huong Bauer nurse practitioner acting as scribe for signing physician.
[2018-03-26] MEDS ORDERED: ALBUMIN HUMAN 5% 250 ML in EMPTY BAG 1 BAG IVPB ONE (13:45)
--- NOTE | 2018-03-26 13:45 | P.PN ---
Subjective Patient is seen in follow-up for acute kidney injury. Renal function is worsening with creatinine up to 2.6 today. He is maintained on Lasix 40 mg orally twice daily and Aldactone 25 mg daily. Patient's noted to have septic knee arthritis with synovial culture positive for Clostridium and blood culture is positive for the same. Patient was noted to have urinary retention and had a Ayala catheter placed yesterday evening. Oral intake is fair. Blood pressures are slightly on the lower side but stable. No vomiting or diarrhea. Vital signs are stable. General: The patient appeared well nourished and normally developed. HEENT: Head exam is unremarkable. Neck is without jugular venous distension. LUNGS: Lungs are clear to auscultation and percussion. Breath sounds decreased. HEART: Rate and Rhythm are regular. First and second heart sounds normal. No murmurs, rubs or gallops. ABDOMEN: Abdominal exam reveals normal bowel sounds. Non-tender and non- distended. No evidence of peritonitis. EXTREMITITES: Trace edema. Objective - Vital Signs Vital signs: Vital Signs Temp 98.0 F 03/26/18 07:11 Pulse 83 03/26/18 07:11 Resp 17 03/26/18 08:08 BP 113/67 03/26/18 07:11 Pulse Ox 98 03/26/18 07:11 Intake & Output 03/25/18 03/26/18 03/26/18 18:59 06:59 18:59 Intake Total 320 1360 540 Output Total 20 720 30 Balance 300 640 510 Weight 81.828 kg Intake: Intake, IV Titration 100 Amount Ampicillin-Sulbactam 3 gm 100 In Sodium Chloride 0.9% 100 ml @ 200 mls/hr IVPB Q6HR [facility] Rx#:[id number] Oral 120 1260 540 Other 200 Output: Drainage 20 20 30 Left Knee 20 20 30 Urine 600 Stool 100 Other: Voiding Method Indwelling Catheter Indwelling Catheter # Voids 3 1 - Labs CBC & Chem 7: 03/26/18 07:24 03/26/18 07:24 Labs: Abnormal Lab Results - Last 24 Hours (Table) 03/25/18 03/25/18 03/26/18 Range/Units 17:51 20:19 02:09 RBC (4.30-5.90) m/uL Hgb (13.0-17.5) gm/dL Hct (39.0-53.0) % MCV (80.0-100.0) fL MCH (25.0-35.0) pg RDW (11.5-15.5) % Plt Count (150-450) k/uL Sodium (137-145) mmol/L Chloride (98-107) mmol/L Carbon Dioxide (22-30) mmol/L BUN (9-20) mg/dL Creatinine (0.66-1.25) mg/dL Glucose (74-99) mg/dL POC Glucose (mg/dL) 279 H 250 H 271 H (75-99) mg/dL Calcium (8.4-10.2) mg/dL 03/26/18 03/26/18 03/26/18 Range/Units 07:11 07:24 07:24 RBC 2.05 L (4.30-5.90) m/uL Hgb 9.0 L D (13.0-17.5) gm/dL Hct 27.7 L (39.0-53.0) % MCV 135.2 H (80.0-100.0) fL MCH 43.8 H (25.0-35.0) pg RDW 18.5 H (11.5-15.5) % Plt Count 47 L (150-450) k/uL Sodium 129 L (137-145) mmol/L Chloride 108 H (98-107) mmol/L Carbon Dioxide 15 L (22-30) mmol/L BUN 84 H (9-20) mg/dL Creatinine 2.60 H (0.66-1.25) mg/dL Glucose 227 H (74-99) mg/dL POC Glucose (mg/dL) 311 H (75-99) mg/dL Calcium 7.6 L (8.4-10.2) mg/dL 03/26/18 Range/Units 11:55 RBC (4.30-5.90) m/uL Hgb (13.0-17.5) gm/dL Hct (39.0-53.0) % MCV (80.0-100.0) fL MCH (25.0-35.0) pg RDW (11.5-15.5) % Plt Count (150-450) k/uL Sodium (137-145) mmol/L Chloride (98-107) mmol/L Carbon Dioxide (22-30) mmol/L BUN (9-20) mg/dL Creatinine (0.66-1.25) mg/dL Glucose (74-99) mg/dL POC Glucose (mg/dL) 205 H (75-99) mg/dL Calcium (8.4-10.2) mg/dL Microbiology - Last 24 Hours (Table) 03/22/18 09:47 Anaerobic Culture - Final Synovial Fluid Clostridium sordellii 03/22/18 09:47 Gram Stain - Final Knee - Left Body Fluid Culture - Final 03/22/18 21:14 Blood Culture - Preliminary Blood No Growth after 72 hours 03/22/18 20:48 Blood Culture - Preliminary Blood No Growth after 72 hours Assessment and Plan Plan: Assessment: 1. Acute kidney injury secondary to ATN secondary to hypotension, infection as well as vancomycin toxicity. Also component of urinary retention. Creatinine up to 2.6 today. 2. Septic arthritis with synovial fluid culture and blood culture positive for Clostridium sordelli. 3. History of autoimmune hepatitis maintained on prednisone and Imuran. 4. Hyponatremia. Patient appears hypervolemic. However he is intravascularly depleted as his albumin level is less than 2. 5. Metabolic acidosis secondary to acute kidney injury. 6. Urinary retention status post Ayala catheter placement. Plan: Hold evening dose of Lasix. Check renal ultrasound. Add oral bicarbonate. Encourage oral intake. Avoid nephrotoxins. Off vancomycin. I will give him 25 g of albumin today. Repeat electrolytes in the morning. 1.5 L fluid restriction.
[2018-03-26] MEDS: SODIUM BICARBONATE TAB 650 MG TAB PO SCH ×2 (14:24→22:41)
[2018-03-26] MEDS: HYDROcodone/APAP 5-325MG 1 EACH TAB PO PRN ×3 (14:33→22:40)
--- NOTE | 2018-03-26 17:03 | US ---
EXAMINATION TYPE: US venous doppler duplex LE RT DATE OF EXAM: 03/26/2018 3:07 PM COMPARISON: NONE CLINICAL HISTORY: 78-year-old male rule out DVT. Prior left leg DVT per patient years ago; right leg edema; ileostomy SIDE PERFORMED: Right TECHNIQUE: The lower extremity deep venous system is examined utilizing real time linear array sonog zan with graded compression, doppler sonography and color-flow sonography. FINDINGS: VESSELS IMAGED: Common Femoral Vein Deep Femoral Vein Greater Saphenous Vein * Femoral Vein Popliteal Vein Small Saphenous Vein * Proximal Calf Veins (* superficial vessels) US exam is technically limited due to patient's limited range of motion in reclining bedside chair. Right Leg: Negative for DVT. Edema channels are noted throughout anterior subcutaneous tissues. With in the right popliteal fossa, there is a minimally complex fluid collection seen = 5.4 x 2.2 x 1.9cm. IMPRESSION: 1. Technically limited exam. No evidence for DVT within the right lower extremity. 2. Subcutaneous soft tissue edema throughout the anterior tissues. 3. Along the popliteal fossa, there is a 5.4 cm minimally complex fluid collection. This is slightly more superficial than expected for a Brizuela's cyst but a Brizuela's cyst is still the most likely conside ration. Correlate with physical exam findings. If this has atypical clinical features, MRI of the kne e can be performed.
--- NOTE | 2018-03-26 17:06 | US ---
EXAMINATION TYPE: US kidneys/renal and bladder DATE OF EXAM: 03/26/2018 COMPARISON: CT 02/26/2018 CLINICAL HISTORY: 78-year-old male acute kidney injury, ileostomy; left leg infection; TECHNIQUE: Multiple sonographic images of the kidneys and bladder are obtained. FINDINGS: EXAM MEASUREMENTS: Right Kidney: 10.8 x 5.3 x 5.8 cm Left Kidney: 11.3 x 5.3 x 5.4 cm Post Void Residual Volume: NA as Ayala Catheter present Us exam is technically limited due to scanning patient in his bedside reclining chair Right Kidney: No hydronephrosis. Left Kidney: lower pole cortical cyst seen = 0.9 x 0.7 x 0.6cm; mid pole shadowing calcification not ed = 1.2 x 1.3 x 0.5cm Bladder: not seen due to overlying enlarged bowel at ileostomy level Ascites: noted in RUQ, midline pelvis and LLQ (ascites pocket size here = 8.0cm A/P). Left pleural effusion is noted. IMPRESSION: 1. No hydronephrosis. 2. 1.3 cm midpole left renal calculus. 3. Bladder not well assessed due to bowel associated with the patient's ostomy. 4. Mild to moderate ascites fluid and left pleural effusion. Correlate as to etiology.
[2018-03-26 17:31] LABS: Glucose,Whole Blood 232 mg/dL (75-99)
[2018-03-26 20:22] LABS: Glucose,Whole Blood 249 mg/dL (75-99)
[2018-03-26] MEDS: MAGNESIUM OXIDE 400 MG TAB PO SCH (22:40)
[2018-03-27] MEDS: INSULIN ASPART 100 UNIT/ML 1 ML 10 ML VIAL SQ SCH ×8 (02:02→20:04)
[2018-03-27] MEDS: AMPICILLIN-SULBACTAM 3 GM in SODIUM CHLORIDE 0.9% 100 ML IVPB SCH ×3 (02:02→23:20)
[2018-03-27 02:13] LABS: Glucose,Whole Blood 248 mg/dL (75-99)
[2018-03-27] MEDS: HYDROcodone/APAP 5-325MG 1 EACH TAB PO PRN ×2 (03:21→16:16)
[2018-03-27 07:12] LABS: Glucose,Whole Blood 229 mg/dL (75-99)
[2018-03-27] MEDS: FERROUS SULFATE 325 MG TAB PO SCH (07:39)
[2018-03-27] MEDS: FUROSEMIDE 40 MG TAB PO SCH ×2 (07:39→16:16)
[2018-03-27] MEDS: predniSONE 20 MG TAB PO SCH (07:39)
[2018-03-27] MEDS: FAMOTIDINE 20 MG TAB PO SCH (07:39)
[2018-03-27] MEDS: LORATADINE 10 MG TAB PO SCH (07:39)
[2018-03-27] MEDS: TAMSULOSIN 0.4 MG CAP.ER.24H PO SCH ×2 (07:39→23:19)
[2018-03-27] MEDS: BACLOFEN 10 MG TAB PO SCH ×2 (07:39→23:19)
[2018-03-27] MEDS: SODIUM BICARBONATE TAB 650 MG TAB PO SCH ×2 (07:39→23:19)
[2018-03-27] MEDS: SPIRONOLACTONE 25 MG TAB PO SCH (07:39)
[2018-03-27] MEDS: azaTHIOprine 50 MG TAB PO SCH (07:40)
[2018-03-27] MEDS: LIDOCAINE 5% PATCH TOPICAL SCH (07:40)
[2018-03-27] MEDS: INSULIN DETEMIR 100 UNIT/ML 10 ML VIAL SQ SCH (08:09)
[2018-03-27 09:45] LABS: Albumin 1.6 g/dL (3.5-5.0); Calcium 7.5 mg/dL (8.4-10.2); Potassium 5.5 mmol/L (3.5-5.1); Total Protein 5.2 g/dL (6.3-8.2)
[2018-03-27 11:15] LABS: Glucose,Whole Blood 215 mg/dL (75-99)
[2018-03-27] MEDS: FOLIC ACID 1 MG TAB PO SCH (12:03)
[2018-03-27] MEDS: MULTIVITAMINS, THERA 1 EACH TAB PO SCH (12:03)
[2018-03-27] MEDS: CYANOCOBALAMIN 500 MCG TAB PO SCH (12:06)
--- NOTE | 2018-03-27 12:08 | P.PN ---
Subjective Progress Note Date: 03/27/18 Principal diagnosis: status post I&D left knee Patient seen at bedside today. He is status post arthroscopic I&D of left knee where he had a previous total knee arthroplasty approximately 12 years ago done elsewhere. He has minimal pain at the surgical site. He has no new complaints. Objective - Vital Signs Vital signs: Vital Signs Temp 97.7 F 03/27/18 07:36 Pulse 86 03/27/18 07:36 Resp 16 03/27/18 07:36 BP 120/71 03/27/18 07:36 Pulse Ox 97 03/27/18 07:36 Intake & Output 03/26/18 03/27/18 03/27/18 18:59 06:59 18:59 Intake Total 540 750 150 Output Total 255 350 Balance 285 400 150 Weight 81.828 kg Intake: Intake, IV Titration 450 Amount Albumin Human 5% 250 ml 250 In Empty Bag 1 bag @ 250 mls/hr IVPB ONCE ONE Rx#: [id number] Ampicillin-Sulbactam 3 gm 200 In Sodium Chloride 0.9% 100 ml @ 200 mls/hr IVPB Q12H [facility] Rx#:[id number] Oral 540 300 150 Output: Drainage 30 Left Knee 30 Urine 225 100 Uretheral (Ayala) 100 Stool 250 Other: Voiding Method Indwelling Catheter Indwelling Catheter Indwelling Catheter - Exam Inspection of the left lower extremity shows hemovac has been discontinued. Nylon surures in place. No bleeding or drainage. No erythema. Neurovascular status is grossly intact distally with motor and sensation throughout the foot and toes. 1+ dorsal pedis pulses present. He has chronic peripheral edema. Calf is soft nontender. - Constitutional General appearance: Present: no acute distress - Labs CBC & Chem 7: 03/26/18 07:24 03/27/18 08:34 Labs: Abnormal Lab Results - Last 24 Hours (Table) 03/26/18 03/26/18 03/26/18 Range/Units 11:55 17:19 20:10 Sodium (137-145) mmol/L Potassium (3.5-5.1) mmol/L Carbon Dioxide (22-30) mmol/L BUN (9-20) mg/dL Creatinine (0.66-1.25) mg/dL Glucose (74-99) mg/dL POC Glucose (mg/dL) 205 H 232 H 249 H (75-99) mg/dL Calcium (8.4-10.2) mg/dL Total Bilirubin (0.2-1.3) mg/dL Total Protein (6.3-8.2) g/dL Albumin (3.5-5.0) g/dL 03/27/18 03/27/18 03/27/18 Range/Units 01:59 07:00 08:34 Sodium 125 L (137-145) mmol/L Potassium 5.5 H (3.5-5.1) mmol/L Carbon Dioxide 16 L (22-30) mmol/L BUN 96 H (9-20) mg/dL Creatinine 3.43 H (0.66-1.25) mg/dL Glucose 213 H (74-99) mg/dL POC Glucose (mg/dL) 248 H 229 H (75-99) mg/dL Calcium 7.5 L (8.4-10.2) mg/dL Total Bilirubin 3.0 H (0.2-1.3) mg/dL Total Protein 5.2 L (6.3-8.2) g/dL Albumin 1.6 L (3.5-5.0) g/dL 03/27/18 Range/Units 11:14 Sodium (137-145) mmol/L Potassium (3.5-5.1) mmol/L Carbon Dioxide (22-30) mmol/L BUN (9-20) mg/dL Creatinine (0.66-1.25) mg/dL Glucose (74-99) mg/dL POC Glucose (mg/dL) 215 H (75-99) mg/dL Calcium (8.4-10.2) mg/dL Total Bilirubin (0.2-1.3) mg/dL Total Protein (6.3-8.2) g/dL Albumin (3.5-5.0) g/dL Microbiology - Last 24 Hours (Table) 03/22/18 21:14 Blood Culture - Preliminary Blood No Growth after 96 hours 03/22/18 20:48 Blood Culture - Preliminary Blood No Growth after 96 hours 03/22/18 09:47 Anaerobic Culture - Final Synovial Fluid Clostridium sordellii 03/22/18 09:47 Gram Stain - Final Knee - Left Body Fluid Culture - Final Assessment and Plan (1) Infection of total left knee replacement Narrative/Plan: Continue wound care, pain management and elevation. Sutures out at post op day # 10. No further surgical intervention planned. We will sign off for now. Current Visit: Yes Status: Acute Priority: Medium Code(s): T84.54XA - INFECT/INFLM REACTION DUE TO INTERNAL LEFT KNEE PROSTH, INIT; Z96.652 - PRESENCE OF LEFT ARTIFICIAL KNEE JOINT SNOMED Code(s): 152938188 Time with Patient: Less than 30
--- NOTE | 2018-03-27 13:38 | XR ---
EXAMINATION TYPE: XR chest 1V portable DATE OF EXAM: 03/27/2018 COMPARISON: 03/21/2018 HISTORY: Weakness TECHNIQUE: Single frontal view of the chest is obtained. FINDINGS: There is blunting of the costophrenic angles related to small pleural effusions. There is associated bibasilar airspace disease. Right-sided PICC line terminates in the cavoatrial junction. C ardiomediastinal silhouette is enlarged. No pulmonary vascular congestion or pneumothorax. Mild degen erative changes of the thoracic spine, chromic clavicular joints and glenohumeral joints are seen. IMPRESSION: Small pleural effusion and associated bibasilar airspace disease, likely atelectasis.
--- NOTE | 2018-03-27 14:46 | P.PN ---
Subjective Progress Note Date: 03/27/18 This is a 78-year-old male patient of Dr. Donaldson with past medical history for diabetes mellitus type 2 steroid induced, DVT many years ago on 2 episodes, autoimmune hepatitis on Imuran, ulcerative colitis status post ileostomy originally in 1972 and revision in 1998 currently on azathioprine, kidney stones, varicose veins. Patient recently seen by Dr. Lopez for over a kidney stone and due to edema was sent into the office and has been seen several times by MINA Adams, with medication changes made by increasing Lasix and adding Zaroxolyn and Aldactone. He has ongoing problems with left- sided knee pain and fluid retention. He states he was unable to move his left knee and hip and that was recently came in to the hospital for evaluation. He denies having any fever, no nausea or vomiting. He has had decreased appetite. He has an ileostomy that has liquid output which is normal for him. He denies having any falls. Patient came into [facility] emergency center for evaluation. Chest x-ray showed no acute process. Knee x- ray showed diffuse subcutaneous soft tissue swelling with no acute fracture dislocation left knee arthroplasty or nome bone. His white count was normal at 5.9, hemoglobin 11.1, platelet count 61, INR 2.0. Sodium 128, potassium 5.5 , CO2 19, BUN 16 creatinine 1.53 blood sugars have been elevated at 200s to 315. Magnesium was 1.4, total bilirubin 4.3, AST 69, ALT 76, alkaline phosphatase 121. Troponin was negative. C-reactive protein 47.3. Albumin 2.3 , proBNP 1630. Urinalysis was clear with moderate blood, small leukoesterase. There was concern for septic arthroplasty left knee and electrolyte abnormalities and acute kidney injury and patient was admitted to the Medr floor consults were requested with Dr. Pierce and Dr. Castelan. Subsequently, patient is been seen by Dr. Castelan and aspiration was done with concern for infection and plan is for I&D tomorrow in the OR. Consult with GI for autoimmune hepatitis. 03/23: Patient complains of feeling uncomfortable secondary to back pain from lying in bed. He is complaining of spasms across his back. He has slight decreased swelling to the left knee today. Blood culture showing gram-positive bacilli. He is scheduled for I&D today with Dr. Castelan. Patient has been seen by Dr. Pierce and he has added Unasyn to cover for Listeria and continued vancomycin. Repeat lab work today shows a hemoglobin 10.4, platelet count 47, INR 2, sodium 128, BUN 56 and creatinine 1.3. Blood sugars are running in the 200s. Patient received only half of his Levemir apparently in anticipation of nothing by mouth status. Total bilirubin 2.3, AST, ALT and alkaline phosphatase are within normal range. Albumin is 1.7. The patient has been seen by GI with recommendations continue Lasix and Aldactone, monitor liver enzymes, low sodium diet. 03/24: Patient underwent I&D yesterday with Dr. Castelan that did find purulent material was expressed and the bright added and drain was placed. Patient has been afebrile and vital signs and stable. Pulse ox is 94-98% on 2 L nasal cannula. Blood sugars are running in the 200s and Levemir will be increased to 15 units daily. But noted the patient's daughter has been refusing his NovoLog scale. Sodium is 127, BUN 59 creatinine 1.34. Updated patient's grandson at the bedside and his daughter over the phone regarding current condition, plan of care. BUN is 15 and creatinine 1.3. Sodium 127. Consult with nephrology added. Lasix and Aldactone will be resumed back on previous dose. Vitamin B12 and folic acid added. PICC line has been ordered. Patient's family is planning on [facility] at the time of discharge which most likely will occur on Friday. 03/25: Patient is complaining of back pain and he was started on baclofen a few days ago. We'll add and lidocaine patch as well. Patient was seen by Dr. Thrasher and cortisol level ordered. Patient received 1 dose of IV Lasix and to encourage oral protein intake. Bladder scans to be done to check for residual. PICC line is to be placed today. Blood culture and anaerobic culture from synovial fluid is positive for Clostridium sordellii. Dr. Pierce is following. He is currently on IV antibiotics of Unasyn and vancomycin. Blood sugars remain in the high 200s and NovoLog scheduled with meals will be added. Patient is currently weightbearing as tolerated on the left leg. He is working with PT and OT. Anticipate discharge to [facility] most likely tomorrow or Monday 03/26: Dr. Pierce is clarified antibiotics for Unasyn for 6 weeks. Blood sugars continue to be elevated for which Levemir will be increased to 20 units daily and NovoLog with meals to 7 units. Patient states he is much more comfortable today and back pain is improved. Hemoglobin is 9, sodium 129, chloride 108, carbon dioxide 15, BUN 84 and creatinine 2.6. Vancomycin has been discontinued. Currently, there are no beds available at [facility] and family have been asked to find another care home. They will discuss and is a care home to make a decision. Anticipate discharge by tomorrow. PICC line was placed yesterday by interventional radiology. 03/27:patient has had scant urine output today. BUN 96 and creatinine 3.43. Sodium 125 and potassium 5.5. Blood sugars are running in the low 200s. Discharge to ECF will be canceled for today. Patient's and grandson are at the bedside. [id number] is also on the phone/conference call during evaluation. Discussed with family that patient's prognosis is very poor. Patient's wishes aren't for no aggressive treatment.chest x-rays show small pleural effusion and associated bibasilar airspace disease likely atelectasis.patient remains on fluid restriction of 1500 ML's. He is eating very little. Sodium bicarb was added yesterday. Review of Systems All systems: negative Constitutional: Reports fatigue, Reports poor appetite, Reports weakness, Denies chills, Denies fever Eyes: denies blurred vision, denies pain Ears, nose, mouth and throat: Denies dysphagia, Denies headache, Denies sore throat, Denies vertigo Cardiovascular: Reports leg edema, Denies chest pain, Denies shortness of breath , Denies syncope Respiratory: Denies cough, Denies cough with sputum, Denies excessive sputum, Denies hemoptysis, Denies wheezing Gastrointestinal: Reports loss of appetite, Denies abdominal pain, Denies diarrhea, Denies melena, Denies nausea, Denies vomiting Genitourinary: Denies dysuria Musculoskeletal: Reports gait dysfunction, Denies myalgias Musculoskeletal: left: knee pain, knee swelling, complains of low back pain- improved Integumentary: Reports wounds, Denies pruritus, Denies rash Neurological: Denies change in mentation, Denies confusion, Denies numbness, Denies weakness Psychiatric: Denies anxiety, Denies depression Endocrine: Denies fatigue, Denies weight change Objective - Vital Signs Vital signs: Vital Signs Temp 97.7 F 03/27/18 07:36 Pulse 86 03/27/18 07:36 Resp 16 03/27/18 07:36 BP 120/71 03/27/18 07:36 Pulse Ox 97 03/27/18 07:36 Intake & Output 03/26/18 03/27/18 03/27/18 18:59 06:59 18:59 Intake Total 540 750 Output Total 255 350 Balance 285 400 Weight 81.828 kg Intake: Intake, IV Titration 450 Amount Albumin Human 5% 250 ml 250 In Empty Bag 1 bag @ 250 mls/hr IVPB ONCE ONE Rx#: [id number] Ampicillin-Sulbactam 3 gm 200 In Sodium Chloride 0.9% 100 ml @ 200 mls/hr IVPB Q12H [facility] Rx#:[id number] Oral 540 300 Output: Drainage 30 Left Knee 30 Urine 225 100 Uretheral (Ayala) 100 Stool 250 Other: Voiding Method Indwelling Catheter Indwelling Catheter - Exam Gen: This is an 78-year-old male. He is sitting up in recliner and appears to be comfortable. His and grandson are at the bedside. Daughter- in-law is on phone/conference call. HEENT: Head is atraumatic, normocephalic. Pupils equal, round. Sclerae is anicteric. NECK: Supple. No JVD. No lymphadenopathy. No thyromegaly. LUNGS: Clear to auscultation. No wheezes or rhonchi. No intercostal retractions. HEART: Regular rate and rhythm. No murmur. ABDOMEN: Soft. Bowel sounds are present. No masses. No tenderness. Ileostomy with watery type stools. EXTREMITIES: 2+ pedal edema bilaterally. Edema to the left knee with tenderness. NEUROLOGICAL: Patient is awake, alert and oriented x3. Cranial nerves 2 through 12 are grossly intact. Generalized weakness. - Labs CBC & Chem 7: 03/26/18 07:24 03/27/18 08:34 Labs: Abnormal Lab Results - Last 24 Hours (Table) 03/26/18 03/26/18 03/26/18 Range/Units 11:55 17:19 20:10 POC Glucose (mg/dL) 205 H 232 H 249 H (75-99) mg/dL 03/27/18 03/27/18 Range/Units 01:59 07:00 POC Glucose (mg/dL) 248 H 229 H (75-99) mg/dL Microbiology - Last 24 Hours (Table) 03/22/18 21:14 Blood Culture - Preliminary Blood No Growth after 96 hours 03/22/18 20:48 Blood Culture - Preliminary Blood No Growth after 96 hours 03/22/18 09:47 Anaerobic Culture - Final Synovial Fluid Clostridium sordellii 03/22/18 09:47 Gram Stain - Final Knee - Left Body Fluid Culture - Final Assessment and Plan Plan: 1. Acute kidney injury most likely secondary to poor oral intake and diureticswith worsening renal function. Lasix and Aldactone continued. Monitor renal function daily. Metformin and glipizide discontinued.consult with nephrology appreciated. Sodium bicarb added. Patient has Ayala catheter to monitor output and possible urinary retention. 2. Possible acute septic arthritis of the left knee. Consult with Dr. Castelan appreciated. Status post I&D. Consult with Dr. Pierce appreciated. Continue Unasyn only. Vancomycin discontinued. PICC line has been placed. 3. History of autoimmune hepatitis has been on Imuran and oral prednisone. Consult with GI appreciated. 4. Diabetes mellitus type 2, uncontrolled with hyperglycemia. Metformin and glipizide placed on hold. Increase Levemir to 20 units daily and NovoLog 10 units and Humalog scale before meals and at bedtime. Hemoglobin A1c is 7.3. 5. Hypercoagulopathy most likely secondary to autoimmune hepatitis. Monitor INR daily. Patient has not been on Coumadin. 6. Electrolyte abnormalities with hyponatremia, hyperkalemia, hypomagnesemia. Continue to monitor. 7. History of DVT, many years ago with no evidence of recurrence. 8. Varicose veins, stable. 9. Gastrointestinal prophylaxis. Pepcid. 10. Stage II decubitus ulcer on the coccyx, present on admission. [facility] [facility] wound [facility]. 11. DVT prophylaxis. SADIA hose and SCDs. No heparin due to INR of 2. Discharge plan: ECF -- discharge held. Impression and plan of care have been directed as dictated by the signing physician. Huong Bauer nurse practitioner acting as scribe for signing physician.
[2018-03-27] MEDS: SODIUM CHLORIDE 0.9% 1,000 ML IV SCH (16:17)
--- NOTE | 2018-03-27 16:21 | PN ---
PROGRESS NOTE Patient is seen for followup for acute kidney injury and hyponatremia. This morning patient is seen sitting up in bed. He is not in any acute distress. Family is present at bedside. The case was discussed with Holli, the [id number], as well. When patient was seen this morning his labs were pending. Urine output has been low. The 24-hour urine output is documented at 740 mL. The patient has an indwelling Ayala catheter. According to family, patient did eat last night. On examination today, blood pressure was 120/71, heart rate of 86 per minute. Patient is afebrile. EXAMINATION OF THE HEART: S1, S2. EXAMINATION OF LUNGS: Bilateral breath sounds are heard. ABDOMEN: Soft, non-tender. Examination of lower extremities shows edema 2+ bilaterally. [employer] exam is not done. Labs show sodium 125, potassium 5.5, chloride 103, carbon dioxide BUN 16, serum creatinine 3.4 and BUN of 96, calcium 7.5, albumin 1.6. ASSESSMENT: 1. Acute kidney injury, most likely secondary to vancomycin toxicity. Urine output is on the lower side. I will give a fluid bolus this morning, and if urine output does not improve, we will use small dose of Lasix. I will also check a chest x- ray, and if there is no significant pulmonary vascular congestion I will start the patient on IV fluids. This was discussed with Holli, and at this time if renal function does not improve, there are no plans for any renal replacement therapy. Patient's family does not want to proceed with any aggressive measures. 2. Metabolic acidosis, started on sodium bicarb orally, which we can continue. 3. Hyponatremia. Serum sodium had improved with diuresis; however, currently due to underlying worsening renal failure the serum sodium has worsened. I will start the patient on saline and we will give him a dose of Lasix as well tonight. 4. Hyperkalemia associated with acute kidney injury. Hold off on Aldactone for now. Expect improvement with Lasix if the urine output improves. 5. Septic arthritis, maintained on Unasyn. 6. Autoimmune hepatitis, currently on an Imuran and prednisone. PLAN: Decrease in urine, given the underlying infection. Continue with the prednisone. Start normal saline. Lasix 40 IV push x1 once the saline has started. Continue with indwelling Ayala catheter. Avoid hypotension. Discontinue Aldactone. Repeat labs in a.m. If renal function continues to worsen, patient's family does not want to proceed with any renal replacement therapy. MMODL / IJN: [id number] /
[2018-03-27 17:36] LABS: Glucose,Whole Blood 239 mg/dL (75-99)
[2018-03-27] MEDS ORDERED: FUROSEMIDE 10 MG/ML 4 ML VIAL IV STA (18:03)
[2018-03-27] MEDS: HYDROmorphone 1 MG/ML 1 ML SYRINGE IVP PRN (20:04)
[2018-03-27 20:07] LABS: Glucose,Whole Blood 205 mg/dL (75-99)
--- NOTE | 2018-03-27 23:08 | P.PN ---
Subjective Progress Note Date: 03/27/18 Pleasant 78-year-old male with an extensive past medical history that includes ulcerative colitis with surgical intervention, autoimmune hepatitis, deep venous thrombosis 2, diabetes mellitus type 2 steroid-induced. The patient is chronically immunosuppressed due to Imuran therapy that he has been on for his autoimmune hepatitis. Recently was seen by Dr. Baez at [facility] for evaluation of his autoimmune hepatitis. Due to some ongoing activity prednisone was added to his Imuran. He has recently been seen by Dr. Posadas an EGD was performed to evaluate for varices. He is due for liver MRI in the near future. Patient started having increasing difficulties with ambulation. He has a known history of a left total knee arthroplasty performed at [facility] proximally 6 years ago. He has been doing relatively well until the sudden onset of left knee pain with difficulty with ambulation. Subsequently he presented to the emergency center for evaluation of the significant left knee and leg pain that made it difficult for him to attempt to ambulate. He does not believe he has had a significant fever or chills. But does feel very poorly overall. His family members are present. There is concern about his autoimmune hepatitis and gastroenterology has been requested 03/27/2018 patient has had further decline of his status. Renal failure has progressed. Mental status has declined. Urine output has fallen. These events are discussed with the grandson and the patient's daughter Sofía. Objective - Vital Signs Vital signs: Vital Signs Temp 97.8 F 03/27/18 20:00 Pulse 86 03/27/18 20:00 Resp 16 03/27/18 20:00 BP 108/55 03/27/18 20:00 Pulse Ox 99 03/27/18 20:00 Intake & Output 03/27/18 03/27/18 03/28/18 06:59 18:59 06:59 Intake Total 750 1000 262.5 Output Total 350 Balance 400 1000 262.5 Intake: Intake, IV Titration 450 300 262.5 Amount Albumin Human 5% 250 ml 250 In Empty Bag 1 bag @ 250 mls/hr IVPB ONCE ONE Rx#: [id number] Ampicillin-Sulbactam 3 gm 200 In Sodium Chloride 0.9% 100 ml @ 200 mls/hr IVPB Q12H [facility] Rx#:[id number] Lactated Ringers 1,000 ml 300 @ 0 mls/hr IV .[facility] Rx#:[id number] Sodium Chloride 0.9% 1, 262.5 000 ml @ 75 mls/hr IV . [id number] [facility] Rx#:[id number] Oral 300 600 Other 100 Output: Urine 100 Uretheral (Ayala) 100 Stool 250 Other: Voiding Method Indwelling Catheter Indwelling Catheter Indwelling Catheter - Exam Pleasant 78-year-old male in no acute distress supine sleeping HEENT: Anicteric conjunctiva are pink and moist nasal mucosa grossly intact without significant lesions, there is no thrush. Neck: The neck is supple without significant lymphadenopathy or thyromegaly. Lungs: Good bilateral air entry without significant crackles or wheezing. There is no significant bronchial sounds. There is no egophony or dullness. Heart: Regular rate and rhythm with an audible S1-S2, no S3 no S4. There is no significant murmur click or rub, PMI was nondisplaced. Abdomen: Positive bowel sounds soft and nontender without palpable masses or organomegaly. There was no guarding or rebound. Ostomy functioning well Extremities: The upper extremities have excellent pulses they are symmetric, no significant petechiae or telangiectasia. No splinter hemorrhages were noted. Right lower extremity is without acute abnormality. Left leg reveals evidence of the significant swelling to the left knee is extremely painful for any temps for range of motion it is warm to touch without erythema there was no significant inguinal lymphadenopathy to the left and no other abnormal lymph nodes are noted Neuro: sleeping not responding - Labs CBC & Chem 7: 03/26/18 07:24 03/27/18 08:34 Labs: Abnormal Lab Results - Last 24 Hours (Table) 03/27/18 03/27/18 03/27/18 Range/Units 01:59 07:00 08:34 Sodium 125 L (137-145) mmol/L Potassium 5.5 H (3.5-5.1) mmol/L Carbon Dioxide 16 L (22-30) mmol/L BUN 96 H (9-20) mg/dL Creatinine 3.43 H (0.66-1.25) mg/dL Glucose 213 H (74-99) mg/dL POC Glucose (mg/dL) 248 H 229 H (75-99) mg/dL Calcium 7.5 L (8.4-10.2) mg/dL Total Bilirubin 3.0 H (0.2-1.3) mg/dL Total Protein 5.2 L (6.3-8.2) g/dL Albumin 1.6 L (3.5-5.0) g/dL 03/27/18 03/27/18 03/27/18 Range/Units 11:14 17:23 19:56 Sodium (137-145) mmol/L Potassium (3.5-5.1) mmol/L Carbon Dioxide (22-30) mmol/L BUN (9-20) mg/dL Creatinine (0.66-1.25) mg/dL Glucose (74-99) mg/dL POC Glucose (mg/dL) 215 H 239 H 205 H (75-99) mg/dL Calcium (8.4-10.2) mg/dL Total Bilirubin (0.2-1.3) mg/dL Total Protein (6.3-8.2) g/dL Albumin (3.5-5.0) g/dL Microbiology - Last 24 Hours (Table) 03/22/18 21:14 Blood Culture - Preliminary Blood No Growth after 96 hours 03/22/18 20:48 Blood Culture - Preliminary Blood No Growth after 96 hours Assessment and Plan (1) Autoimmune hepatitis treated with steroids Current Visit: Yes Status: Acute Code(s): K75.4 - AUTOIMMUNE HEPATITIS SNOMED Code(s): 500236782 (2) Cirrhosis of liver Current Visit: Yes Status: Acute Code(s): K74.60 - UNSPECIFIED CIRRHOSIS OF LIVER SNOMED Code(s): 15666327 (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 There is evidence of a significant effusion which is down been aspirated by orthopedic surgery. Improvement material was found. Infectious diseases consultation was requested given the positive blood cultures. Of note gram-positive bacilli have been isolated from the blood culture. Given the patient's underlying liver disease and immunosuppressed status there is concern that this could be Listeria and consequently Unasyn is added in addition to vancomycin therapy at this time pending further results. Aspiration needs been performed and await culture results. It appears that an arthroscopic intervention will be occurring tomorrow for further evaluation of that left knee. Gastroenterology is come by to see the patient also await their input. We'll likely need a protracted course of antibiotic therapy given the infection to the left knee arthroplasty. The current care is discussed with the patient's daughter who is the nurse practitioner in [place], patient is having progression declining status. The family is all coming in and likely will transition to comfort care. He does have a serious overwhelming infection in an immunocompromised individual with progressive organ failure at this time. Family is supportive and their decision process. Current Visit: Yes Status: Acute Priority: Medium Code(s): T84.54XA - INFECT/INFLM REACTION DUE TO INTERNAL LEFT KNEE PROSTH, INIT; Z96.652 - PRESENCE OF LEFT ARTIFICIAL KNEE JOINT SNOMED Code(s): 491173039
[2018-03-27] MEDS: MAGNESIUM OXIDE 400 MG TAB PO SCH (23:19)
[2018-03-28] MEDS: HYDROmorphone 1 MG/ML 1 ML SYRINGE IVP PRN ×3 (02:30→18:06)
[2018-03-28] MEDS: INSULIN ASPART 100 UNIT/ML 1 ML 10 ML VIAL SQ SCH ×8 (02:58→22:39)
[2018-03-28 03:08] LABS: Glucose,Whole Blood 133 mg/dL (75-99)
[2018-03-28] MEDS: SODIUM CHLORIDE 0.9% 1,000 ML IV SCH (06:08)
[2018-03-28 07:03] LABS: Glucose,Whole Blood 120 mg/dL (75-99)
[2018-03-28 08:23] VITALS: PULSE 77; RESP 6
[2018-03-28 08:25] VITALS: BP 95/55; TEMP 98.2
[2018-03-28] MEDS: FAMOTIDINE 20 MG TAB PO SCH (08:27)
[2018-03-28] MEDS: FERROUS SULFATE 325 MG TAB PO SCH (08:27)
[2018-03-28] MEDS: FUROSEMIDE 40 MG TAB PO SCH (08:27)
[2018-03-28] MEDS: INSULIN DETEMIR 100 UNIT/ML 10 ML VIAL SQ SCH (08:27)
[2018-03-28] MEDS: BACLOFEN 10 MG TAB PO SCH ×2 (08:27→22:37)
[2018-03-28] MEDS: TAMSULOSIN 0.4 MG CAP.ER.24H PO SCH ×2 (08:28→22:36)
[2018-03-28] MEDS: predniSONE 20 MG TAB PO SCH (08:28)
[2018-03-28] MEDS: SODIUM BICARBONATE TAB 650 MG TAB PO SCH ×3 (08:28→22:38)
[2018-03-28] MEDS: LORATADINE 10 MG TAB PO SCH (08:28)
[2018-03-28] MEDS ORDERED: azaTHIOprine 50 MG TAB PO SCH (09:00)
--- NOTE | 2018-03-28 09:09 | P.PN ---
Subjective Patient is seen in follow-up for acute kidney injury. Renal function is worsening with creatinine up to 3.43 yesterday. He received IV Lasix yesterday and is also on normal saline at 75 mL an hour. Urine output was 100 mL overnight. Patient's noted to have septic knee arthritis with synovial culture positive for Clostridium and blood culture is positive for the same. Patient was noted to have urinary retention and has a Ayala catheter. Oral intake is fair. Patient is quite lethargic. Oh response to verbal commands. Family is present at bedside. Vital signs are stable. General: The patient appeared well nourished and normally developed. HEENT: Head exam is unremarkable. Neck is without jugular venous distension. LUNGS: Breath sounds decreased. HEART: Rate and Rhythm are regular. First and second heart sounds normal. No murmurs, rubs or gallops. ABDOMEN: Abdominal exam reveals normal bowel sounds. Non-tender and non- distended. No evidence of peritonitis. EXTREMITITES: 2+ edema. Objective - Vital Signs Vital signs: Vital Signs Temp 98.2 F 03/28/18 07:00 Pulse 77 03/28/18 08:00 Resp 6 L 03/28/18 08:00 BP 95/55 03/28/18 07:00 Pulse Ox 97 03/28/18 07:00 Intake & Output 03/27/18 03/28/18 03/28/18 18:59 06:59 18:59 Intake Total 1000 937.5 0 Balance 1000 937.5 0 Intake: Intake, IV Titration 300 937.5 Amount Lactated Ringers 1,000 ml 300 @ 0 mls/hr IV .[facility] Rx#:[id number] Sodium Chloride 0.9% 1, 937.5 000 ml @ 75 mls/hr IV . [id number] [facility] Rx#:[id number] Oral 600 0 Other 100 Other: Voiding Method Indwelling Catheter Indwelling Catheter Indwelling Catheter # Voids 100 - Labs CBC & Chem 7: 03/26/18 07:24 03/27/18 08:34 Labs: Abnormal Lab Results - Last 24 Hours (Table) 03/27/18 03/27/18 03/27/18 Range/Units 08:34 11:14 17:23 Sodium 125 L (137-145) mmol/L Potassium 5.5 H (3.5-5.1) mmol/L Carbon Dioxide 16 L (22-30) mmol/L BUN 96 H (9-20) mg/dL Creatinine 3.43 H (0.66-1.25) mg/dL Glucose 213 H (74-99) mg/dL POC Glucose (mg/dL) 215 H 239 H (75-99) mg/dL Calcium 7.5 L (8.4-10.2) mg/dL Total Bilirubin 3.0 H (0.2-1.3) mg/dL Total Protein 5.2 L (6.3-8.2) g/dL Albumin 1.6 L (3.5-5.0) g/dL 03/27/18 03/28/18 03/28/18 Range/Units 19:56 02:56 06:48 Sodium (137-145) mmol/L Potassium (3.5-5.1) mmol/L Carbon Dioxide (22-30) mmol/L BUN (9-20) mg/dL Creatinine (0.66-1.25) mg/dL Glucose (74-99) mg/dL POC Glucose (mg/dL) 205 H 133 H 120 H (75-99) mg/dL Calcium (8.4-10.2) mg/dL Total Bilirubin (0.2-1.3) mg/dL Total Protein (6.3-8.2) g/dL Albumin (3.5-5.0) g/dL Microbiology - Last 24 Hours (Table) 03/22/18 21:14 Blood Culture - Preliminary Blood No Growth after 120 hours 03/22/18 20:48 Blood Culture - Preliminary Blood No Growth after 120 hours Assessment and Plan Plan: Assessment: 1. Acute kidney injury secondary to ATN secondary to hypotension, infection as well as vancomycin toxicity. Creatinine up to 3.43 yesterday. 2. Septic arthritis with synovial fluid culture and blood culture positive for Clostridium sordelli. 3. History of autoimmune hepatitis maintained on prednisone. Imuran held due to infection at this time. 4. Hyponatremia. Patient is hypervolemic. 5. Metabolic acidosis secondary to acute kidney injury maintained on oral sodium bicarbonate. 6. Urinary retention status post Ayala catheter placement. 7. Volume overload. Plan: I will give him 25 g of IV albumin 2 doses today. Start Lasix 60 mg IV twice daily. Discontinue normal saline. Maintain oral bicarbonate. Continue to monitor renal function and urine output. Morning labs pending. Overall prognosis poor. Patient will not be a good candidate for renal replacement therapy and family does not want such aggressive measures.
[2018-03-28] MEDS ORDERED: ALBUMIN HUMAN 5% 500 ML in EMPTY BAG 1 BAG IVPB ONE ×2 (09:30→18:00)
[2018-03-28 09:58] LABS: Albumin 1.6 g/dL (3.5-5.0); Calcium 7.8 mg/dL (8.4-10.2); Magnesium 1.4 mg/dL (1.6-2.3); Potassium 5.9 mmol/L (3.5-5.1); Total Protein 5.3 g/dL (6.3-8.2)
[2018-03-28] MEDS ORDERED: SODIUM BICARB 8.4% 50 ML SYR (1 MEQ/ML) IV STA (10:26)
[2018-03-28] MEDS ORDERED: INSULIN REGULAR 100 UNIT/ML VIAL IV ONE (10:27)
[2018-03-28] MEDS ORDERED: DEXTROSE 50%-WATER 50 ML SYRINGE IVP STA (10:28)
--- NOTE | 2018-03-28 11:45 | P.PN ---
Subjective Progress Note Date: 03/28/18 This is a 78-year-old male patient of Dr. Donaldson with past medical history for diabetes mellitus type 2 steroid induced, DVT many years ago on 2 episodes, autoimmune hepatitis on Imuran, ulcerative colitis status post ileostomy originally in 1972 and revision in 1998 currently on azathioprine, kidney stones, varicose veins. Patient recently seen by Dr. Lopez for over a kidney stone and due to edema was sent into the office and has been seen several times by MINA Adams, with medication changes made by increasing Lasix and adding Zaroxolyn and Aldactone. He has ongoing problems with left- sided knee pain and fluid retention. He states he was unable to move his left knee and hip and that was recently came in to the hospital for evaluation. He denies having any fever, no nausea or vomiting. He has had decreased appetite. He has an ileostomy that has liquid output which is normal for him. He denies having any falls. Patient came into [facility] emergency center for evaluation. Chest x-ray showed no acute process. Knee x- ray showed diffuse subcutaneous soft tissue swelling with no acute fracture dislocation left knee arthroplasty or [place] bone. His white count was normal at 5.9, hemoglobin 11.1, platelet count 61, INR 2.0. Sodium 128, potassium 5.5 , CO2 19, BUN 16 creatinine 1.53 blood sugars have been elevated at 200s to 315. Magnesium was 1.4, total bilirubin 4.3, AST 69, ALT 76, alkaline phosphatase 121. Troponin was negative. C-reactive protein 47.3. Albumin 2.3 , proBNP 1630. Urinalysis was clear with moderate blood, small leukoesterase. There was concern for septic arthroplasty left knee and electrolyte abnormalities and acute kidney injury and patient was admitted to the Medr floor consults were requested with Dr. Pierce and Dr. Castelan. Subsequently, patient is been seen by Dr. Castelan and aspiration was done with concern for infection and plan is for I&D tomorrow in the OR. Consult with GI for autoimmune hepatitis. 03/23: Patient complains of feeling uncomfortable secondary to back pain from lying in bed. He is complaining of spasms across his back. He has slight decreased swelling to the left knee today. Blood culture showing gram-positive bacilli. He is scheduled for I&D today with Dr. Castelan. Patient has been seen by Dr. Pierce and he has added Unasyn to cover for Listeria and continued vancomycin. Repeat lab work today shows a hemoglobin 10.4, platelet count 47, INR 2, sodium 128, BUN 56 and creatinine 1.3. Blood sugars are running in the 200s. Patient received only half of his Levemir apparently in anticipation of nothing by mouth status. Total bilirubin 2.3, AST, ALT and alkaline phosphatase are within normal range. Albumin is 1.7. The patient has been seen by GI with recommendations continue Lasix and Aldactone, monitor liver enzymes, low sodium diet. 03/24: Patient underwent I&D yesterday with Dr. Castelan that did find purulent material was expressed and the bright added and drain was placed. Patient has been afebrile and vital signs and stable. Pulse ox is 94-98% on 2 L nasal cannula. Blood sugars are running in the 200s and Levemir will be increased to 15 units daily. But noted the patient's daughter has been refusing his NovoLog scale. Sodium is 127, BUN 59 creatinine 1.34. Updated patient's grandson at the bedside and his daughter over the phone regarding current condition, plan of care. BUN is 15 and creatinine 1.3. Sodium 127. Consult with nephrology added. Lasix and Aldactone will be resumed back on previous dose. Vitamin B12 and folic acid added. PICC line has been ordered. Patient's family is planning on [facility] at the time of discharge which most likely will occur on Friday. 03/25: Patient is complaining of back pain and he was started on baclofen a few days ago. We'll add and lidocaine patch as well. Patient was seen by Dr. Thrasher and cortisol level ordered. Patient received 1 dose of IV Lasix and to encourage oral protein intake. Bladder scans to be done to check for residual. PICC line is to be placed today. Blood culture and anaerobic culture from synovial fluid is positive for Clostridium sordellii. Dr. Pierce is following. He is currently on IV antibiotics of Unasyn and vancomycin. Blood sugars remain in the high 200s and NovoLog scheduled with meals will be added. Patient is currently weightbearing as tolerated on the left leg. He is working with PT and OT. Anticipate discharge to [facility] most likely tomorrow or Monday 03/26: Dr. Pierce is clarified antibiotics for Unasyn for 6 weeks. Blood sugars continue to be elevated for which Levemir will be increased to 20 units daily and NovoLog with meals to 7 units. Patient states he is much more comfortable today and back pain is improved. Hemoglobin is 9, sodium 129, chloride 108, carbon dioxide 15, BUN 84 and creatinine 2.6. Vancomycin has been discontinued. Currently, there are no beds available at [facility] and family have been asked to find another shelter. They will discuss and is a shelter to make a decision. Anticipate discharge by tomorrow. PICC line was placed yesterday by interventional radiology. 03/27:patient has had scant urine output today. BUN 96 and creatinine 3.43. Sodium 125 and potassium 5.5. Blood sugars are running in the low 200s. Discharge to [facility] will be canceled for today. Patient's and grandson are at the bedside. [id number] is also on the phone/conference call during evaluation. Discussed with family that patient's prognosis is very poor. Patient's wishes aren't for no aggressive treatment.chest x-rays show small pleural effusion and associated bibasilar airspace disease likely atelectasis.patient remains on fluid restriction of 1500 ML's. He is eating very little. Sodium bicarb was added yesterday. 03/28: Patient is very drowsy today barely arousable, I spoke with his family beside that the prognosis very poor and they should really discussed hospice care,his daughter in law is driving in to see patient. Review of Systems All systems: negative Constitutional: Reports fatigue, Reports poor appetite, Reports weakness, Denies chills, Denies fever Eyes: denies blurred vision, denies pain Ears, nose, mouth and throat: Denies dysphagia, Denies headache, Denies sore throat, Denies vertigo Cardiovascular: Reports leg edema, Denies chest pain, Denies shortness of breath , Denies syncope Respiratory: Denies cough, Denies cough with sputum, Denies excessive sputum, Denies hemoptysis, Denies wheezing Gastrointestinal: Reports loss of appetite, Denies abdominal pain, Denies diarrhea, Denies melena, Denies nausea, Denies vomiting Genitourinary: Denies dysuria Musculoskeletal: Reports gait dysfunction, Denies myalgias Musculoskeletal: left: knee pain, knee swelling, complains of low back pain- improved Integumentary: Reports wounds, Denies pruritus, Denies rash Neurological: Denies change in mentation, Denies confusion, Denies numbness, Denies weakness Psychiatric: Denies anxiety, Denies depression Endocrine: Denies fatigue, Denies weight change Objective - Vital Signs Vital signs: Vital Signs Temp 97.8 F 03/28/18 00:54 Pulse 71 03/28/18 00:54 Resp 16 03/28/18 00:54 BP 95/66 03/28/18 00:54 Pulse Ox 91 L 03/28/18 00:54 Intake & Output 03/27/18 03/28/18 03/28/18 18:59 06:59 18:59 Intake Total 1000 937.5 Balance 1000 937.5 Intake: Intake, IV Titration 300 937.5 Amount Lactated Ringers 1,000 ml 300 @ 0 mls/hr IV .[facility] Rx#:[id number] Sodium Chloride 0.9% 1, 937.5 000 ml @ 75 mls/hr IV . [id number] Rx#:[id number] Oral 600 Other 100 Other: Voiding Method Indwelling Catheter Indwelling Catheter # Voids 100 - Exam - Exam Gen: This is an 78-year-old male. He is sitting up in recliner and appears to be comfortable. His and grandson are at the bedside. Daughter- in-law is on phone/conference call. HEENT: Head is atraumatic, normocephalic. Pupils equal, round. Sclerae is anicteric. NECK: Supple. No JVD. No lymphadenopathy. No thyromegaly. LUNGS: Clear to auscultation. No wheezes or rhonchi. No intercostal retractions. HEART: Regular rate and rhythm. No murmur. ABDOMEN: Soft. Bowel sounds are present. No masses. No tenderness. Ileostomy with watery type stools. EXTREMITIES: 2+ pedal edema bilaterally. Edema to the left knee with tenderness. NEUROLOGICAL: Patient is drowsy barely arousable, opens his eyes in response to verbal stimuli, very weak and not moving his extremities. - Labs CBC & Chem 7: 03/26/18 07:24 03/28/18 09:07 Labs: Abnormal Lab Results - Last 24 Hours (Table) 03/27/18 03/27/18 03/27/18 Range/Units 08:34 11:14 17:23 Sodium 125 L (137-145) mmol/L Potassium 5.5 H (3.5-5.1) mmol/L Carbon Dioxide 16 L (22-30) mmol/L BUN 96 H (9-20) mg/dL Creatinine 3.43 H (0.66-1.25) mg/dL Glucose 213 H (74-99) mg/dL POC Glucose (mg/dL) 215 H 239 H (75-99) mg/dL Calcium 7.5 L (8.4-10.2) mg/dL Total Bilirubin 3.0 H (0.2-1.3) mg/dL Total Protein 5.2 L (6.3-8.2) g/dL Albumin 1.6 L (3.5-5.0) g/dL 03/27/18 03/28/18 03/28/18 Range/Units 19:56 02:56 06:48 Sodium (137-145) mmol/L Potassium (3.5-5.1) mmol/L Carbon Dioxide (22-30) mmol/L BUN (9-20) mg/dL Creatinine (0.66-1.25) mg/dL Glucose (74-99) mg/dL POC Glucose (mg/dL) 205 H 133 H 120 H (75-99) mg/dL Calcium (8.4-10.2) mg/dL Total Bilirubin (0.2-1.3) mg/dL Total Protein (6.3-8.2) g/dL Albumin (3.5-5.0) g/dL Microbiology - Last 24 Hours (Table) 03/22/18 21:14 Blood Culture - Preliminary Blood No Growth after 120 hours 03/22/18 20:48 Blood Culture - Preliminary Blood No Growth after 120 hours Assessment and Plan Assessment: Assessment and Plan Plan: 1. Acute kidney injury most likely secondary to poor oral intake and diureticswith worsening renal function. Lasix and Aldactone continued. Monitor renal function daily. Metformin and glipizide discontinued.consult with nephrology appreciated. Sodium bicarb added. Patient has Ayala catheter to monitor output and possible urinary retention. 2. Possible acute septic arthritis of the left knee. Consult with Dr. Castelan appreciated. Status post I&D. Consult with Dr. Pierce appreciated. Continue Unasyn only. Vancomycin discontinued. PICC line has been placed. 3. History of autoimmune hepatitis has been on Imuran and oral prednisone. Consult with GI appreciated. 4. Diabetes mellitus type 2, uncontrolled with hyperglycemia. Metformin and glipizide placed on hold. Increase Levemir to 20 units daily and NovoLog 10 units and Humalog scale before meals and at bedtime. Hemoglobin A1c is 7.3. 5. Hypercoagulopathy most likely secondary to autoimmune hepatitis. Monitor INR daily. Patient has not been on Coumadin. 6. Electrolyte abnormalities with hyponatremia, hyperkalemia, hypomagnesemia. Continue to monitor. 7. History of DVT, many years ago with no evidence of recurrence. 8. Varicose veins, stable. 9. Gastrointestinal prophylaxis. Pepcid. 10. Stage II decubitus ulcer on the coccyx, present on admission. Opticell local wound care. 11. DVT prophylaxis. SADIA nolasco and SCDs. No heparin due to INR of 2. 12. Plan for Hospice care when family arrive.
[2018-03-28 12:08] LABS: Glucose,Whole Blood 148 mg/dL (75-99)
[2018-03-28] MEDS: FUROSEMIDE 10 MG/ML 10 ML VIAL IV SCH (13:25)
[2018-03-28] MEDS: MAGNESIUM SULFATE-D5W PMX 1 GM in DEXTROSE/WATER 1 100ML.BAG IVPB SCH ×2 (15:50→15:51)
[2018-03-28] MEDS: AMPICILLIN-SULBACTAM 3 GM in SODIUM CHLORIDE 0.9% 100 ML IVPB SCH (15:51)
[2018-03-28] MEDS: FOLIC ACID 1 MG TAB PO SCH (15:52)
[2018-03-28] MEDS: CYANOCOBALAMIN 500 MCG TAB PO SCH (15:52)
[2018-03-28] MEDS: MULTIVITAMINS, THERA 1 EACH TAB PO SCH (15:52)
[2018-03-28] MEDS: LIDOCAINE 5% PATCH TOPICAL SCH (16:32)
[2018-03-28] MEDS ORDERED: ONDANSETRON 4 MG/2 ML VIAL IVP PRN (20:49)
[2018-03-28] MEDS ORDERED: MORPHINE SULFATE 2 MG/ML SYRINGE IV PRN (20:49)
[2018-03-28] MEDS ORDERED: LORazepam 2 MG/ML INJ IV PRN (20:49)
[2018-03-28] MEDS ORDERED: ATROPINE OPHTH SOLN 1% 5ML BTL SUBLINGUAL PRN (20:49)
[2018-03-28] MEDS ORDERED: MORPHINE SULFATE (100 MG/2 ML) 100 MG in SODIUM CHLORIDE 0.9% 100 ML IV SCH (21:00)
[2018-03-28] MEDS ORDERED: SCOPOLAMINE 1.5MG/72HR PATCH TRANSDERM SCH (21:00)
[2018-03-28] MEDS: MAGNESIUM OXIDE 400 MG TAB PO SCH (22:37)
[2018-03-29] MEDS: FUROSEMIDE 10 MG/ML 10 ML VIAL IV SCH (01:35)
== END 2018-03-29 01:44 | disposition hospice, inpatient (51) | DRG 485 ==
LOC: EC 11:51 → 4SSUR 16:51
PROVIDERS: ADMIT Internal Medicine Geriatric Medicine; ATTEND Internal Medicine Geriatric Medicine
PROC: 0SBD4ZZ Excision of Left Knee Joint, Percutaneous Endoscopic Approach (ICD-10-PCS; principal; 2018-03-23 09:15)
PROC: 02HV33Z Insertion of Infusion Device into Superior Vena Cava, Percutaneous Approach (ICD-10-PCS; 2018-03-25 10:17)
DX: T84.54XA Infection and inflammatory reaction due to internal left knee prosthesis, initial encounter (principal); N17.0 Acute kidney failure with tubular necrosis; M00.862 Arthritis due to other bacteria, left knee; E87.1 Hypo-osmolality and hyponatremia; E87.2 Acidosis; J98.11 Atelectasis; K51.90 Ulcerative colitis, unspecified, without complications; K76.6 Portal hypertension; L89.152 Pressure ulcer of sacral region, stage 2; D89.9 Disorder involving the immune mechanism, unspecified; I95.9 Hypotension, unspecified; E09.65 Drug or chemical induced diabetes mellitus with hyperglycemia; E83.42 Hypomagnesemia; E87.5 Hyperkalemia; E87.70 Fluid overload, unspecified; B96.89 Other specified bacterial agents as the cause of diseases classified elsewhere; K74.60 Unspecified cirrhosis of liver; K75.4 Autoimmune hepatitis; K72.90 Hepatic failure, unspecified without coma; N20.0 Calculus of kidney; I83.90 Asymptomatic varicose veins of unspecified lower extremity; T36.8X5A Adverse effect of other systemic antibiotics, initial encounter; K31.89 Other diseases of stomach and duodenum; K44.9 Diaphragmatic hernia without obstruction or gangrene; R33.9 Retention of urine, unspecified; T38.0X5A Adverse effect of glucocorticoids and synthetic analogues, initial encounter; M54.9 Dorsalgia, unspecified; R79.1 Abnormal coagulation profile; T50.2X5A Adverse effect of carbonic-anhydrase inhibitors, benzothiadiazides and other diuretics, initial encounter; Z51.5 Encounter for palliative care; Z79.4 Long term (current) use of insulin; Z79.52 Long term (current) use of systemic steroids; Z79.899 Other long term (current) drug therapy; Z93.2 Ileostomy status; Z87.442 Personal history of urinary calculi; Z86.718 Personal history of other venous thrombosis and embolism; Z90.49 Acquired absence of other specified parts of digestive tract; Z91.041 Radiographic dye allergy status; Z88.5 Allergy status to narcotic agent; Z91.013 Allergy to seafood; Z82.0 Family history of epilepsy and other diseases of the nervous system; Z82.61 Family history of arthritis; Z84.89 Family history of other specified conditions; Y83.1 Surgical operation with implant of artificial internal device as the cause of abnormal reaction of the patient, or of later complication, without mention of misadventure at the time of the procedure
CPT/HCPCS: 36415; 36569; 71045; 76770; 76937; 77001; 80048; 80053; 80202; 81001; 82533; 82550; 82553; 83036; 83735; 83880; 83935; 84132; 84300; 84484; 85025; 85027; 85610; 85652; 85730; 86140; 87040; 87070; 87075; 87205; 89050; 89060; 93005; 94760; 96361; 96365; 96366; 96375; 99285

== ENCOUNTER 2018-03-29 01:48 | Inpatient (IN) | payer MEDICAID, OTHER ==
[2018-03-29] MEDS ORDERED: MORPHINE SULFATE 2 MG/ML SYRINGE IV PRN (02:00)
[2018-03-29] MEDS ORDERED: LORazepam 2 MG/ML INJ IV PRN (02:00)
[2018-03-29] MEDS ORDERED: ONDANSETRON 4 MG/2 ML VIAL IVP PRN (02:00)
[2018-03-29] MEDS ORDERED: SCOPOLAMINE 1.5MG/72HR PATCH TRANSDERM SCH (02:00)
[2018-03-29] MEDS ORDERED: MORPHINE SULFATE (100 MG/2 ML) 100 MG in SODIUM CHLORIDE 0.9% 100 ML IV SCH (02:00)
[2018-03-29] MEDS ORDERED: ATROPINE OPHTH SOLN 1% 5ML BTL SUBLINGUAL PRN (02:00)
== END 2018-03-29 04:52 | disposition expired | DRG 560 ==
LOC: 4SSUR 01:48
PROVIDERS: ADMIT Internal Medicine Geriatric Medicine; ATTEND Internal Medicine Geriatric Medicine
DX: T84.54XA Infection and inflammatory reaction due to internal left knee prosthesis, initial encounter (principal); M00.862 Arthritis due to other bacteria, left knee; N17.9 Acute kidney failure, unspecified; E87.1 Hypo-osmolality and hyponatremia; E09.65 Drug or chemical induced diabetes mellitus with hyperglycemia; T38.0X5A Adverse effect of glucocorticoids and synthetic analogues, initial encounter; K75.4 Autoimmune hepatitis; R79.1 Abnormal coagulation profile; I83.90 Asymptomatic varicose veins of unspecified lower extremity; E87.5 Hyperkalemia; E83.42 Hypomagnesemia; L89.152 Pressure ulcer of sacral region, stage 2; N20.0 Calculus of kidney; Z86.718 Personal history of other venous thrombosis and embolism; Z93.2 Ileostomy status; Z90.49 Acquired absence of other specified parts of digestive tract; Z79.4 Long term (current) use of insulin; Z79.899 Other long term (current) drug therapy; Z82.0 Family history of epilepsy and other diseases of the nervous system